=== PATIENT | male | born 1965 | race Two or more races ===

== ENCOUNTER 2017-06-05 08:01 | Emergency (ER) | payer MEDICAID ==
[~2017-06-05] VITALS: Ht 165.1 cm; Wt 83.9 kg
[~2017-06-05 08:01] MED LIST: ENA2.5T GT; GABA-494 PO; GLIP-115 PO; METF-370 PO
[2017-06-05 08:39] VITALS: BP 143/90
[2017-06-05] MEDS ORDERED: SODIUM CHLORIDE 0.9% 1,000 ML IV ONE (08:54)
[2017-06-05 09:39] LABS: CONDITION Y; Hemoglobin 13.9 g/dL (13.5-17.5); Red Cell Distribution Width 14.6 % (11.6-16.0); SUSPECT SEE PRINTOUT
[2017-06-05 09:45] LABS: Hematocrit 40.2 % (41.0-53.0); Mean Corpuscular Hemoglobin 30.3 pg (28.0-32.0); Mean Corpuscular Hgb Conc. 34.7 g/dL (32.0-36.0); Mean Corpuscular Volume 87.4 fL (80.0-100.0)
[2017-06-05 09:47] LABS: Metamyelocytes % 0; Myelocytes % 0; Promyelocytes % 0; Reactive Lymphocytes 0
[2017-06-05 09:52] LABS: Magnesium 2.2 mg/dL (1.6-2.6)
[2017-06-05 10:17] LABS: Albumin 3.3 g/dL (3.4-5.0); Alkaline Phosphatase 154 U/L (45-117); Anion Gap 10 (5-15); Aspartate Aminotransferase 20 U/L (15-37); BUN/Creatinine Ratio 17.1; Bilirubin, Total 0.3 mg/dL (0.2-1.0); Blood Urea Nitrogen 13 mg/dL (7-18); Calcium 8.9 mg/dL (8.5-10.1); Carbon Dioxide 19 mmol/L (21-32); Chloride 106 mmol/L (98-107); GFR African American 140 mL/min; GFR Non-African American 115 mL/min; Glucose 160 mg/dL (74-106); Potassium 4.2 mmol/L (3.5-5.1); Sodium 135 mmol/L (136-145); Total Protein 8.8 g/dL (6.4-8.2)
[2017-06-05 10:39] LABS: Mean Platelet Volume 7.5 fL (7.4-10.4); Platelet Count (auto) 376 10^3/uL (140-450)
[2017-06-05 10:40] LABS: Large Platelets FEW; Platelet Estimate Adequate
== END 2017-06-05 10:28 | disposition left against medical advice (07) ==
LOC: ER 08:01
DX: I25.10 Atherosclerotic heart disease of native coronary artery without angina pectoris (principal); E11.65 Type 2 diabetes mellitus with hyperglycemia; I10 Essential (primary) hypertension
CPT/HCPCS: 36415; 71020; 80053; 83690; 83735; 84443; 84484; 85007; 85027; 93005; 94761

== ENCOUNTER 2019-02-13 09:03 | Emergency (ER) | payer OTHER, MEDICAID ==
[~2019-02-13] VITALS: Ht 165.1 cm; Wt 95.3 kg
[~2019-02-13 09:03] MED LIST changes: -GABA-494 PO; +GABA100C9 PO
[2019-02-13 10:42] LABS: Basophils # (auto) 0 uL; Basophils % (auto) 0.2 % (0.0-2.0); Eosinophils # (auto) 0.1 uL; Eosinophils % (auto) 2.7 % (0.0-7.0); Hematocrit 40.5 % (41.0-53.0); Hemoglobin 13.4 g/dL (13.5-17.5); Lymphocytes # (auto) 1.4 uL; Lymphocytes % (auto) 26.3 % (10.0-50.0); Mean Corpuscular Hemoglobin 28.5 pg (28.0-32.0); Mean Corpuscular Hgb Conc. 33.2 g/dL (32.0-36.0); Mean Corpuscular Volume 85.9 fL (80.0-100.0); Monocytes # (auto) 0.3 uL; Monocytes % (auto) 4.8 % (0.0-12.0); Neutrophils # (auto) 3.5 uL; Nucleated Red Blood Cells % 0.1 %; Platelet Count (auto) 235 10^3/uL (140-450); Red Blood Cells 4.71 10^6/uL (4.5-5.90); Red Cell Distribution Width 14.9 % (11.8-14.3); White Blood Cell 5.3 10^3/uL (4.4-10.8)
[2019-02-13 11:01] LABS: Albumin 3.6 g/dL (3.4-5.0); Anion Gap 8 (5-15); Blood Urea Nitrogen 11 mg/dL (7-18); Carbon Dioxide 25 mmol/L (21-32); Chloride 103 mmol/L (98-107); Glucose 182 mg/dL (74-106); Potassium 3.5 mmol/L (3.5-5.1); Sodium 136 mmol/L (136-145)
[2019-02-13 11:09] LABS: Alanine Aminotransferase 25 U/L (16-61); Alkaline Phosphatase 103 U/L (45-117); Aspartate Aminotransferase 19 U/L (15-37); BUN/Creatinine Ratio 14.1; Bilirubin, Total 0.3 mg/dL (0.2-1.0); GFR African American 134 mL/min; GFR Non-African American 111 mL/min; Total Protein 7.8 g/dL (6.4-8.2)
[2019-02-13 11:28] LABS: Urine Bacteria NONE SEEN /hpf (None Seen); Urine Blood Negative /uL (Negative); Urine Mucus FEW (None Seen); Urine Specific Gravity 1.027 (1.001-1.035); Urine WBC 1 /hpf (0 - 3)
[2019-02-13 12:17] VITALS: BP 127/75
== END 2019-02-13 12:19 | disposition home or self-care (01) ==
LOC: ER 09:03
DX: R10.11 Right upper quadrant pain (principal); M79.18 Myalgia, other site; E11.9 Type 2 diabetes mellitus without complications; I10 Essential (primary) hypertension
CPT/HCPCS: 36415; 74176; 80053; 81001; 84484; 85025; 93005; A6257

== ENCOUNTER 2019-06-24 20:21 | Emergency (ER) | payer OTHER, MEDICAID ==
[~2019-06-24] VITALS: Ht 165.1 cm; Wt 95.3 kg
[~2019-06-24 20:21] MED LIST changes: -ENA2.5T GT; +ENAL2.5T2 GT; -GLIP-115 PO; +GLIP5TAB12 PO
[2019-06-24 20:34] VITALS: BP 118/57
== END 2019-06-25 00:01 | disposition left against medical advice (07) ==
LOC: ER 20:21 → EDBD 20:21 → ER 06-25 00:01
DX: R07.89 Other chest pain (principal); F41.9 Anxiety disorder, unspecified; Z53.21 Procedure and treatment not carried out due to patient leaving prior to being seen by health care provider
CPT/HCPCS: 93005

== ENCOUNTER 2019-11-09 15:41 | Emergency (ER) | payer OTHER, MEDICAID ==
[~2019-11-09] VITALS: Ht 165.1 cm; Wt 95.7 kg
[2019-11-09 16:39] VITALS: BP 144/71
[2019-11-09] MEDS ORDERED: KETOROLAC TROMETH 60MG/2ML VIAL IM ONE (17:30)
== END 2019-11-09 17:58 | disposition home or self-care (01) ==
LOC: ER 15:41
DX: M54.42 Lumbago with sciatica, left side (principal); E11.9 Type 2 diabetes mellitus without complications; I10 Essential (primary) hypertension
CPT/HCPCS: 73502; 82962; 96372; 99283; J1885

== ENCOUNTER 2019-11-12 12:42 | Emergency (ER) | payer OTHER, MEDICAID ==
[~2019-11-12] VITALS: Ht 165.1 cm; Wt 95.7 kg
[2019-11-12 14:00] VITALS: BP 136/69
[2019-11-12] MEDS ORDERED: METHOCARBAMOL 500 MG TAB PO ONE (15:00)
[2019-11-12] MEDS ORDERED: ACETAMINOPHEN 325 MG TAB PO ONE (15:00)
== END 2019-11-12 15:23 | disposition home or self-care (01) ==
LOC: ER 12:43
DX: M54.16 Radiculopathy, lumbar region (principal); I10 Essential (primary) hypertension; E11.9 Type 2 diabetes mellitus without complications

== ENCOUNTER 2021-06-13 09:04 | Emergency (ER) | payer OTHER, MEDICAID ==
[~2021-06-13] VITALS: Ht 165.1 cm; Wt 95.3 kg
[~2021-06-13 09:04] MED LIST changes: +ENAL2.5T11 GT; -ENAL2.5T2 GT
[2021-06-13 09:33] VITALS: BP 136/63
== END 2021-06-13 10:36 | disposition home or self-care (01) ==
LOC: ER 09:04
DX: S90.32XA Contusion of left foot, initial encounter (principal); S92.341D Displaced fracture of fourth metatarsal bone, right foot, subsequent encounter for fracture with routine healing; I10 Essential (primary) hypertension; E11.9 Type 2 diabetes mellitus without complications; Z90.49 Acquired absence of other specified parts of digestive tract; Z79.899 Other long term (current) drug therapy; Z79.84 Long term (current) use of oral hypoglycemic drugs; X58.XXXA Exposure to other specified factors, initial encounter; Y93.89 Activity, other specified; Y92.89 Other specified places as the place of occurrence of the external cause; Y99.8 Other external cause status
CPT/HCPCS: 73620

== ENCOUNTER 2021-08-17 17:04 | Emergency (ER) | payer OTHER, MEDICAID ==
[~2021-08-17] VITALS: Ht 165.1 cm; Wt 93.0 kg
[2021-08-17 20:05] VITALS: BP 126/70
== END 2021-08-17 20:40 | disposition home or self-care (01) ==
LOC: ER 17:04
DX: S92.334A Nondisplaced fracture of third metatarsal bone, right foot, initial encounter for closed fracture (principal); M79.671 Pain in right foot; E66.9 Obesity, unspecified; E11.9 Type 2 diabetes mellitus without complications; I10 Essential (primary) hypertension; Z68.34 Body mass index [BMI] 34.0-34.9, adult; Z79.899 Other long term (current) drug therapy; Z90.49 Acquired absence of other specified parts of digestive tract; X58.XXXA Exposure to other specified factors, initial encounter; Y93.89 Activity, other specified; Y92.89 Other specified places as the place of occurrence of the external cause; Y99.8 Other external cause status
CPT/HCPCS: 73630

== ENCOUNTER → 2022-06-18 | Emergency (ER) | payer OTHER, MEDICAID ==
[~2022-06-18] VITALS: Ht 165.1 cm; Wt 84.0 kg
[~2022-06-18] MED LIST changes: +MORPHINE SULFATE 4 MG/ML SYR/VIAL IV ONE; +ONDA-144 PO; +ONDANSETRON HCL 4 MG/2 ML VIAL IV ONE; +PANT40TA2 PO; +PANTOPRAZOLE 40 MG/10 ML VIAL INJ IV ONE; +SODIUM CHLORIDE 0.9% 500 ML IVB ONE
[2022-06-18 11:00] VITALS: BP 151/78
[2022-06-18 12:07] LABS: Basophils # (auto) 0 10 ^3/uL (0-0.2); Basophils % (auto) 0.2 % (0.0-2.0); Eosinophils # (auto) 0 10 ^3/uL (0-0.8); Hematocrit 41.2 % (41.0-53.0); Hemoglobin 13.3 g/dL (13.5-17.5); Lymphocytes # (auto) 0.6 10 ^3/uL (0.4-5.4); Lymphocytes % (auto) 5.3 % (10.0-50.0); Mean Corpuscular Hemoglobin 28.1 pg (28.0-32.0); Mean Corpuscular Hgb Conc. 32.3 g/dL (32.0-36.0); Monocytes # (auto) 0.3 10 ^3/uL (0-1.3); Neutrophils # (auto) 9.6 10 ^3/uL (1.6-8.6); Neutrophils % (auto) 91.5 % (37.0-80.0); Red Blood Cells 4.74 10^6/uL (4.5-5.90); White Blood Cell 10.5 10^3/uL (4.4-10.8)
[2022-06-18 12:20] LABS: Albumin 3.8 g/dL (3.4-5.0); Calcium 9.8 mg/dL (8.5-10.1); Potassium 4.4 mmol/L (3.5-5.1)
[2022-06-18 12:24] LABS: BUN/Creatinine Ratio 14.5; Bilirubin, Total 0.6 mg/dL (0.2-1.0); Total Protein 7.8 g/dL (6.4-8.2)
== END | disposition left against medical advice (07) ==
LOC: ER 10:44
DX: R10.84 Generalized abdominal pain (principal); E11.9 Type 2 diabetes mellitus without complications; I10 Essential (primary) hypertension; Z90.49 Acquired absence of other specified parts of digestive tract
CPT/HCPCS: 36415; 74176; 80053; 82150; 83690; 85025; 93005

== ENCOUNTER 2023-03-13 09:39 | Emergency (ER) | payer OTHER, MEDICAID ==
[~2023-03-13] VITALS: Ht 165.1 cm; Wt 83.7 kg
[~2023-03-13 09:39] MED LIST changes: -MORPHINE SULFATE 4 MG/ML SYR/VIAL IV ONE; -ONDANSETRON HCL 4 MG/2 ML VIAL IV ONE; -PANTOPRAZOLE 40 MG/10 ML VIAL INJ IV ONE; -SODIUM CHLORIDE 0.9% 500 ML IVB ONE
[2023-03-13 10:24] LABS: Basophils # (auto) 0 10 ^3/uL (0-0.2); Basophils % (auto) 0.3 % (0.0-2.0); Eosinophils # (auto) 0 10 ^3/uL (0-0.8); Eosinophils % (auto) 0.3 % (0.0-7.0); Hematocrit 38.9 % (41.0-53.0); Lymphocytes # (auto) 0.9 10 ^3/uL (0.4-5.4); Lymphocytes % (auto) 15.5 % (10.0-50.0); Mean Corpuscular Hemoglobin 28.8 pg (28.0-32.0); Mean Corpuscular Hgb Conc. 33.3 g/dL (32.0-36.0); Mean Corpuscular Volume 86.4 fL (80.0-100.0); Monocytes # (auto) 0.4 10 ^3/uL (0-1.3); Monocytes % (auto) 6.1 % (0.0-12.0); Neutrophils # (auto) 4.7 10 ^3/uL (1.6-8.6); Neutrophils % (auto) 77.8 % (37.0-80.0); Nucleated Red Blood Cells % 0.3 %; Red Blood Cells 4.51 10^6/uL (4.5-5.90); Red Cell Distribution Width 14.6 % (11.8-14.3); White Blood Cell 6.1 10^3/uL (4.4-10.8)
[2023-03-13 10:40] LABS: Albumin 3.7 g/dL (3.4-5.0); Potassium 3.6 mmol/L (3.5-5.1)
[2023-03-13 10:43] LABS: BUN/Creatinine Ratio 18.5 (10.0-20.0); Bilirubin, Total 0.6 mg/dL (0.2-1.0); Total Protein 7.3 g/dL (6.4-8.2)
[2023-03-13 11:45] VITALS: BP 132/46
[2023-03-13] MEDS ORDERED: HYDROcodone-ACET 10/325MG TAB PO ONE (11:45)
[2023-03-13 12:46] LABS: Urine Bacteria NONE SEEN /hpf (None Seen); Urine Blood Negative /uL (Negative); Urine Mucus FEW (None Seen); Urine Specific Gravity 1.034 (1.001-1.035); Urine WBC <1 /hpf (0 - 3)
== END 2023-03-13 11:52 | disposition home or self-care (01) ==
LOC: ER 09:39
DX: R07.81 Pleurodynia (principal); R06.02 Shortness of breath; E11.9 Type 2 diabetes mellitus without complications; I10 Essential (primary) hypertension; Z90.49 Acquired absence of other specified parts of digestive tract; Z93.3 Colostomy status; W11.XXXA Fall on and from ladder, initial encounter; Y93.89 Activity, other specified; Y92.89 Other specified places as the place of occurrence of the external cause; Y99.8 Other external cause status
CPT/HCPCS: 36415; 70450; 71250; 72125; 74176; 80053; 81001; 82962; 85025

== ENCOUNTER 2023-05-02 10:04 | Emergency (ER) | payer OTHER, MEDICAID ==
[~2023-05-02] VITALS: Ht 165.1 cm; Wt 85.0 kg
[~2023-05-02 10:04] MED LIST changes: +GABA-1308 PO; -GABA100C9 PO
[2023-05-02 10:07] VITALS: BP 137/67
[2023-05-02 10:37] LABS: Basophils # (auto) 0 10 ^3/uL (0-0.2); Basophils % (auto) 0.8 % (0.0-2.0); Eosinophils # (auto) 0 10 ^3/uL (0-0.8); Eosinophils % (auto) 0.2 % (0.0-7.0); Hematocrit 41.4 % (41.0-53.0); Hemoglobin 13.6 g/dL (13.5-17.5); Lymphocytes # (auto) 0.6 10 ^3/uL (0.4-5.4); Lymphocytes % (auto) 10.5 % (10.0-50.0); Mean Corpuscular Hemoglobin 28.8 pg (28.0-32.0); Mean Corpuscular Volume 87.4 fL (80.0-100.0); Monocytes # (auto) 0.2 10 ^3/uL (0-1.3); Monocytes % (auto) 3.5 % (0.0-12.0); Neutrophils # (auto) 4.8 10 ^3/uL (1.6-8.6); Nucleated Red Blood Cells % 0.2 %; Red Blood Cells 4.73 10^6/uL (4.5-5.90); Red Cell Distribution Width 14.9 % (11.8-14.3); White Blood Cell 5.7 10^3/uL (4.4-10.8)
[2023-05-02 10:49] LABS: Potassium 4.3 mmol/L (3.5-5.1)
[2023-05-02 10:53] LABS: INR 0.98 (0.9-1.15); Partial Thromboplastin Time 30.5 SEC (24.5-34.5)
[2023-05-02 10:57] LABS: Albumin 3.9 g/dL (3.4-5.0); BUN/Creatinine Ratio 16.1 (10.0-20.0); Bilirubin, Total 0.6 mg/dL (0.2-1.0); Calcium 9.3 mg/dL (8.5-10.1); Magnesium 2.4 mg/dL (1.6-2.6); Total Protein 7.3 g/dL (6.4-8.2)
[2023-05-02 10:58] LABS: Urine Bacteria FEW /hpf (None Seen); Urine Blood Negative /uL (Negative); Urine Mucus FEW (None Seen); Urine Specific Gravity 1.039 (1.001-1.035); Urine WBC <1 /hpf (0 - 3)
[2023-05-02 11:30] LABS: Alcohol, Urine < 3.0 mg/dL (0-10); Amphetamine Screen, Urine NEGATIVE (NEGATIVE); Barbiturate Scree,Urine NEGATIVE (NEGATIVE); Benzodiazephine Screen, Urine NEGATIVE (NEGATIVE); Cannabinoid Screen, Urine NEGATIVE (NEGATIVE); Cocaine Screen, Urine NEGATIVE (NEGATIVE); Opiate Scree,Urine NEGATIVE (NEGATIVE); Phencyclidine Screen, Urine NEGATIVE (NEGATIVE)
== END 2023-05-02 13:53 | disposition left against medical advice (07) ==
LOC: ER 10:04
DX: R07.89 Other chest pain (principal); R06.02 Shortness of breath; Z53.21 Procedure and treatment not carried out due to patient leaving prior to being seen by health care provider; Z79.01 Long term (current) use of anticoagulants; Z79.899 Other long term (current) drug therapy
CPT/HCPCS: 36415; 71045; 80053; 80307; 81001; 83735; 83880; 84484; 85025; 85610; 85730; 93005

== ENCOUNTER 2024-11-23 23:08 | Inpatient (IN) | payer OTHER, MEDICAID ==
[~2024-11-23] VITALS: Ht 165.1 cm; Wt 81.4 kg
[~2024-11-23 23:08] MED LIST changes: +ENAL1TAB43 GT; -ENAL2.5T11 GT; -GLIP5TAB12 PO; +GLIP5TAB21 PO
--- NOTE | 2024-11-23 23:38 | ED.PDOC ---
GI ASSESSMENT HPI Comments 59-year-old male came to emergency room for abdominal pain. Patient the past 10 days has been having diffuse abdominal pain associated with loss of appetite, with nausea and vomiting. Noted also abdominal distention. He does have history of hypertension, diabetes, colon cancer on remission, status post ostomy bag. Complaining also of polydipsia and polyuria. Persistence of abdominal pain, distention, with generalized weakness and pale appearance prompted check up. Chief Complaint: Abdominal Pain Time Seen by MD: 23:38 Primary Care Provider: LOYDA Reviewed Notes: Nurses Notes Allergies: Coded Allergies: NO KNOWN ALLERGIES (Unverified , 01/04/14) Home Meds Active Scripts Pantoprazole Sodium Sesquihydr (Protonix) 40 Mg Tab, 40 MG PO DAILY, #30 TAB Prov:JOSE MERIDA MD 06/18/22 Ondansetron (Zofran) 4 Mg Tab, 1 TAB PO Q6HR, #20 TAB Prov:JOSE MERIDA MD 06/18/22 Reported Medications Gabapentin (Gabapentin) 100 Mg Cap, 100 MG PO, CAP 01/04/14 Glipizide (Glipizide) 5 Mg Tab, 5 MG PO, TAB 01/04/14 Metformin Hydrochloride (Metformin Hcl) 500 Mg Tab, 500 MG PO, TAB 01/04/14 Enalapril Maleate (VASOTEC TABLET) 2.5 Mg Tb, 2.5 MG GT 01/04/14 Information Source: Patient Mode of Arrival: Ambulatory Timing: Days Duration: Since onset Prehospital treatment: None Quality: Aching Vomitus: Watery Stool: Normal Severity: Moderate Recent: None Recent Hx of: Abdominal Surgery, Other (Colon cancer) Pain Location: Diffuse Associated sign and symptoms: Nausea, Vomiting, Abdominal Pain, Anorexia Past Medical History PAST MEDICAL HISTORY: Cancer, DM, HTN Surgical History: Cholecystectomy Surgical History (Other): Ostomy Family History Family History: Reviewed,noncontributory to illness Social History Smoker: Non-Smoker Alcohol: Denies ETOH Use Drugs: Denies Drug Use Lives In: Home Constitutional: reports: fatigue, weakness; denies: chills, diaphoresis, fever, malaise, sweats, others EENTM: denies: blurred vision, double vision, ear bleeding, ear discharge, ear drainage, ear pain, ear ringing, eye pain, eye redness, hearing loss, mouth pain, mouth swelling, nasal discharge, nose bleeding, nose congestion, nose pain, photophobia, tearing, throat pain, throat swelling, voice changes, others Respiratory: denies: cough, hemoptysis, orthopnea, SOB at rest, shortness of breath, SOB with excertion, stridor, wheezing, others Cardiovascular: denies: chest pain, dizzy spells, diaphoresis, Dyspnea on exertion, edema, irregular heart beat, left arm pain, lightheadedness, palpitations, PND, syncope, others Gastrointestinal: reports: abdomen distended, abdominal pain, nausea, poor appetite, vomiting; denies: blood streaked bowels, constipated, diarrhea, dysphagia, difficulty swallowing, hematemesis, melena, poor fluid intake, rectal bleeding, rectal pain, others Genitourinary: denies: burning, dysuria, flank pain, frequency, hematuria, incontinence, penile discharge, penile sore, pain, testicle pain, testicle swelling, urgency, others Neurological: denies: dizziness, fainting, headache, left sided numbness, left sided weakness, numbness, paresthesia, pre-existing deficit, right sided numbness, right sided weakness, seizure, speech problems, tingling, tremors, weakness, others Musculoskeletal: denies: back pain, gout, joint pain, joint swelling, muscle pain, muscle stiffness, neck pain, others Integumetry: denies: bruises, change in color, change in hair/nails, dryness, laceration, lesions, lumps, rash, wounds, others Allergic/Immunocompromised: denies: Difficulty Healing, Frequent Infections, Hives, Itching, others Hematologic/Lymphatic: denies: anemia, blood clots, easy bleeding, easy bruising, swollen glands, others Endocrine: denies: excessive hunger, excessive sweating, excessive thirst, excessive urination, flushing, intolerance to cold, intolerance to heat, unexplained weight gain, unexplained weight loss, others Psychiatric: denies: anxiety, bipolar disorder, depression, hopeless, panic disorder, schizophrenia, sleepless, suicidal, others Physical Exam General Appearance: No Apparent Distress, Normal HEENT: Normal ENT Inspection, Pharynx Normal, TMs Normal Neck: Full Range of Motion, Non-Tender, Normal, Normal Inspection Respiratory: Chest Non-Tender, Lungs Clear, No Accessory Muscle Use, No Respiratory Distress, Normal Breath Sounds Cardiovascular: No Edema, No JVD, No Murmur, No Gallop, Normal Peripheral Pulses, Regular Rate/Rhythm Breast Exam: Deferred Gastrointestinal: Diffuse, No Organomegaly, No Pulsatile Mass, Normal Bowel Sounds, Soft, Tenderness, Other (Ostomy bag), NOT DONE Genitalia: Deferred Pelvic: Deferred Rectal: Deferred Extremities: No calf tenderness, Normal capillary refill, Normal inspection, Normal range of motion, Non-tender, No pedal edema Musculoskeletal : Apperance: Normal Neurologic: Alert, mis director II-XII nml as Tested, No Motor Deficits, Normal Affect, Normal Mood, No Sensory Deficits Cerebellar Function: Normal Reflexes: Normal Skin: Dry, Normal Color, Warm Lymphatic: No Adenopathy Was a procedure done? Was a procedure done?: No GI differential Dx Differential Diagnosis: Bowel Obstruction, Constipation, Diverticular disease, Gastritis/PUD, Gastroenteritis, Hernia, Inflammatory BD, Ischemic Bowel, Pancreatitis, UTI, Urolithiasis, Electrolyte Imbalance, Mass, Anemia, Stress Ulcer X-Ray, Labs, Meds, VS Vital Signs Date Time Temp Pulse Resp B/P (MAP) Pulse Ox O2 Delivery O2 Flow Rate FiO2 11/24/24 01:56 97 20 97 Room Air 11/24/24 01:45 98.2 97 16 120/72 (88) 97 98.2 11/23/24 23:28 99.1 111 16 128/71 (90) 95 Lab Test 11/24/24 01:51 11/23/24 23:40 Range/Units POC Glucose 534 *H 70-106 mg/dl White Blood Count 11.3 H 4.4-10.8 10^3/uL Red Blood Count 4.16 L 4.5-5.90 10^6/uL Hemoglobin 12.0 L 13.5-17.5 g/dL Hematocrit 35.5 L 41.0-53.0 % Mean Corpuscular Volume 85.3 80.0-100.0 fL Mean Corpuscular Hemoglobin 28.9 28.0-32.0 pg Mean Corpuscular Hemoglobin Concent 33.8 32.0-36.0 g/dL Red Cell Distribution Width 13.8 11.8-14.3 % Platelet Count 358 140-450 10^3/uL Mean Platelet Volume 7.2 6.9-10.8 fL Neutrophils (%) (Auto) 91.2 H 37.0-80.0 % Lymphocytes (%) (Auto) 4.1 L 10.0-50.0 % Monocytes (%) (Auto) 4.4 0.0-12.0 % Eosinophils (%) (Auto) 0.1 0.0-7.0 % Basophils (%) (Auto) 0.2 0.0-2.0 % Neutrophils # (Auto) 10.3 H 1.6-8.6 10 ^3/uL Lymphocytes # (Auto) 0.5 0.4-5.4 10 ^3/uL Monocytes # (Auto) 0.5 0-1.3 10 ^3/uL Eosinophils # (Auto) 0 0-0.8 10 ^3/uL Basophils # (Auto) 0 0-0.2 10 ^3/uL Nucleated Red Blood Cells 0.0 % Sodium Level 127 L 136-145 mmol/L Potassium Level 3.1 L 3.5-5.1 mmol/L Chloride Level 96 L 98-107 mmol/L Carbon Dioxide Level 19 L 20-31 mmol/L Anion Gap 12 5-15 Blood Urea Nitrogen 11 9-23 mg/dL Creatinine 1.17 0.700-1.30 mg/dL Glomerular Filtration Rate Calc 72 >90 mL/min BUN/Creatinine Ratio 9.4 L 10.0-20.0 Serum Glucose 644 *H 74-106 mg/dL Calcium Level 9.7 8.7-10.4 mg/dL Total Bilirubin 0.6 0.2-1.0 mg/dL Aspartate Amino Transferase (AST) 12 L 13-40 U/L Alanine Aminotransferase (ALT) 12 7-40 U/L Alkaline Phosphatase 140 H 46-116 U/L Total Protein 7.1 5.7-8.2 g/dL Albumin 4.1 3.2-4.8 g/dL Lipase 32 12-53 U/L Current Medications Medications (Trade) Dose Ordered Sig/Angle Route Start Time Stop Time Status Last Admin Insulin Human Regular (InsuLIN R) 10 units ONCE ONCE IV 11/24/24 01:15 11/24/24 01:17 DC 11/24/24 01:58 Time of 1ST Reevaluation: 23:28 Reevaluation 1ST: Unchanged Patient Education/Counseling: Diagnosis, Treatment Family Education/Counseling: No Family Present Departure 1 Departure Time of Disposition: 03:31 (Patient presented with abdominal pain that was concerning for possible appendicits, gastritis, cholecystitis, colitis, gastroenteritis, sbo, or orther possible surgical emergency. Data: 1. I ordered and reviewed the result of at least 3 labs including a CBC, BMP, and Urinalysis. 2. I independently interpreted the following tests: CT Abdoment and Pelvis is concerning for perforated bowel .Risk:This patient has a high risk of morbidity due to further diagnostic testing or treatment and may suffer from an acute abdominal process disorder. Workup reveals concern for bowel perforation, i discussed with dr loredo, and patient should be admitted for further workup. and possible expert consultation. Patient is not septic at this time.) Impression: Primary Impression: Intractable abdominal pain Additional Impressions: Free intraperitoneal air Uncontrolled diabetes mellitus Qualified Codes: E11.65 - Type 2 diabetes mellitus with hyperglycemia Disposition: ADMITTED INPATIENT Admit to: [facility] Condition: Guarded Critical Care Note Critical Care Time?: Yes Critical care comment: Severe Abdominal Pain Authorized and Performed by: Sapphire Hughes MD Total critical care time: Approximately 48 minutes Due to a high probability of clinically significant, life threatening deterio ration, the patient required my highest level of preparedness to intervene emergently and I personally spent this critical care time directly and personally managing the patient. This critical care time included obtaining a history; examining the patient; pulse oximetry; ordering and review of studies; arranging urgent treatment with development of a management plan; evaluation of patient's response to treatment; frequent reassessment; and, discussions with other providers. This critical care time was performed to assess and manage the high probability of imminent, life-threatening deterioration that could result in multi-organ failure. It was exclusive of separately billable procedures and treating other patients and teaching time. Please see my other sections and the rest of the note for further information on patient assessment and treatment. Stability Stability form required: No Heart Score Heart Score: Heart Score Response (Comments) Value History N/A 0 EKG N/A 0 Age N/A 0 Risk Factors N/A 0 Troponin N/A 0 Total 0 I personally scribed for SAPPHIRE HUGHES MD ([email or web address]) on 11/23/24 at 23:38. Electronically submitted by Dexter Allen ([facility]). I personally scribed for SAPPHIRE HUGHES MD ([email or web address]) on 11/24/24 at 00:54. Electronically submitted by Dexter Allen ([facility]). SAPPHIRE HUGHES MD Nov 23, 2024 23:38
[2024-11-24] MEDS: IOHEXOL 300 MG/ML 100ML BOTTLE IJ ONE (00:04)
[2024-11-24 00:07] LABS: Basophils # (auto) 0 10 ^3/uL (0-0.2); Basophils % (auto) 0.2 % (0.0-2.0); Eosinophils # (auto) 0 10 ^3/uL (0-0.8); Eosinophils % (auto) 0.1 % (0.0-7.0); Hematocrit 35.5 % (41.0-53.0); Lymphocytes # (auto) 0.5 10 ^3/uL (0.4-5.4); Lymphocytes % (auto) 4.1 % (10.0-50.0); Mean Corpuscular Hemoglobin 28.9 pg (28.0-32.0); Mean Corpuscular Hgb Conc. 33.8 g/dL (32.0-36.0); Mean Corpuscular Volume 85.3 fL (80.0-100.0); Monocytes # (auto) 0.5 10 ^3/uL (0-1.3); Monocytes % (auto) 4.4 % (0.0-12.0); Neutrophils # (auto) 10.3 10 ^3/uL (1.6-8.6); Neutrophils % (auto) 91.2 % (37.0-80.0); Platelet Count (auto) 358 10^3/uL (140-450); Red Blood Cells 4.16 10^6/uL (4.5-5.90); Red Cell Distribution Width 13.8 % (11.8-14.3); White Blood Cell 11.3 10^3/uL (4.4-10.8)
[2024-11-24 00:47] LABS: Alanine Aminotransferase 12 U/L (7-40); Albumin 4.1 g/dL (3.2-4.8); Anion Gap 12 (5-15); BUN/Creatinine Ratio 9.4 (10.0-20.0); Blood Urea Nitrogen 11 mg/dL (9-23); Calcium 9.7 mg/dL (8.7-10.4); Lipase 32 U/L (12-53)
[2024-11-24 00:48] LABS: Bilirubin, Total 0.6 mg/dL (0.2-1.0); Total Protein 7.1 g/dL (5.7-8.2)
[2024-11-24 00:49] LABS: Carbon Dioxide 19 mmol/L (20-31); Chloride 96 mmol/L (98-107); Potassium 3.1 mmol/L (3.5-5.1); Sodium 127 mmol/L (136-145)
[2024-11-24 00:50] LABS: Alkaline Phosphatase 140 U/L (46-116); Aspartate Aminotransferase 12 U/L (13-40)
[2024-11-24 00:51] LABS: Glucose 644 mg/dL (74-106)
--- NOTE | 2024-11-24 01:11 | DVH ---
EXAM: XY CHEST PORTABLE CLINICAL HISTORY: abdominal pain, ca hx, ostomy TECHNIQUE: Single AP view of the chest WID: COMPARISON: XY CHEST PORTABLE on DOS: 05/02/23 FINDINGS: Lines and tubes: Right IJ chest port with the tip projecting over the mid SVC. Chest: The heart size and pulmonary vasculature is within normal limits. No pleural effusion, pneumothorax, or consolidation. Linear scarring or atelectasis in the medial rig ht lung base. The osseous structures are grossly intact. IMPRESSION: No acute cardiopulmonary abnormality.
[2024-11-24] MEDS: InsuLIN REG 1unit/0.01ml Soln (100units/ml) IV ONE ×2 (01:58→04:18)
--- NOTE | 2024-11-24 03:23 | DVH ---
Critical Finding: Examination: ABPLIV CLINICAL INDICATION: ;abdominal pain, ca hx, ostomy COMPARISON: None. CONTRAST USED: Intravenous. TECHNIQUE: A contrast CT study of the abdomen and pelvis is performed. The examination was performe d with 5 mm thin slices. Multiplanar reconstructions were obtained. CT scan done according to ALARA (As Low As Reasonably Achievable). FINDINGS: Lung base: Solid nodule measuring 9.5 mm is seen in the left lower lobe. Small sliding hiatus hernia. Subsegmental atelectasis is seen in the lingula. Liver: The liver is normal in size. An enhancing lesion measuring 10 mm is seen in the right lobe o f liver suggestive of hemangioma or metastasis. Subcentimeter non-enhancing cyst is seen in segment of liver. It is likely benign and requires no follow-up. The portal venous radicles are normal. There is no intrahepatic biliary radicle dilatation. Gallbladder: The gallbladder is not visualized (postoperative status). The common bile duct is not dilated. Pancreas: The pancreas is normal in size and shape. No focal lesion is seen within. The peripancre atic fa -planes are normal. Spleen: The spleen is normal in size and does not show any focal abnormality. Retroperitoneum: Both adrenal glands are normal in size and morphology. There is no significant retroperitoneal lymphadenopathy. The kidneys are normal in size with no hydronephrosis or renal calculi. Vessels: Aorta, IVC and the mesenteric vessels appear normal. Stomach and bowel: The bowel loops are unremarkable. There is no ascites. Skeletal system: Degenerative changes are seen involving the spine. Grade 1 anterolisthesis of L5 on S1 vertebra is seen with bilateral lysis. CT PELVIS: Appendix: The appendix is unremarkable in appearance. Colon: Colostomy is noted in the left lower quadrant with dilated bowel loops seen in the colostomy measuring approximately 6.3 cm. It appears to be loaded with feces. Mild fat stranding is noted in the adjacent subcutaneous fat with extraluminal air foci questionable for perforation. Bladder: The urinary bladder is unremarkable. Prostate appears normal. No abnormal fluid collection is seen. No pelvic lymphadenopathy is identified. IMPRESSION: 1. Solid nodule measuring 9.5 mm is seen in the left lower lobe. Suggest further evaluation with CT chest study or PET CT study. 2. An enhancing lesion measuring 10 mm is seen in the right lobe of liver suggestive of hemangioma o r metastasis. 3. Colostomy is noted in the left lower quadrant with dilated bowel loops seen in the colostomy miguel a uring approximately 6.3 cm. It appears to be loaded with feces. Mild fat stranding is noted in the adjacent subcutaneous fat with extraluminal air foci questionable for perforation. 4. No abdominal mass or adenopathy. 5. No ascites. 6. No free air or inflammatory changes. 7. Additional chronic and/or ancillary findings as detailed above. 8. Suggest clinical correlation and follow-up as clinically deemed necessary. Electronically Signed 11/24/2024 03:23 Jude Bonilla
[2024-11-24 03:30] VITALS: PULSE 100; RESP 18; O2SAT 96
[2024-11-24] MEDS ORDERED: DEXTROSE (50%) 50ML SYRG IV PRN (04:15)
[2024-11-24] MEDS ORDERED: ACETAMINOPHEN 325 MG TAB PO PRN (04:15)
[2024-11-24] MEDS: ceFAZolin 2 GM/D5W50ml 50 ML IV ONE (04:17)
[2024-11-24] MEDS: ONDANSETRON HCL 4 MG/2 ML VIAL IV ONE (04:17)
[2024-11-24] MEDS: SODIUM CHLORIDE 0.9% 1,000 ML IV ONE ×2 (04:18→14:08)
[2024-11-24] MEDS: MORPHINE SULFATE 4 MG/ML SYR/VIAL IV ONE (04:19)
[2024-11-24] MEDS ORDERED: NITROGLYCERIN 0.4 MG SL TAB SL PRN (04:30)
[2024-11-24] MEDS ORDERED: MORPHINE SULFATE INJ 2 MG/ml SYRG IV PRN (04:30)
--- NOTE | 2024-11-24 04:36 | DVHHP2 ---
History of Present Illness Reason for Visit: Acute abdominal pain History of Present Illness The patient is a 51 old male with past medical history of colon cancer on remission, diabetes mellitus, hypertension who presented to [facility] ED with complaint of acute abdominal pain. Patient reports he has been having diffuse abdominal pain for the past 10 days, associated with loss of appetite, nausea, vomiting, getting worse that prompted this visit. Patient was seen evaluated in the ED, laboratory data shows WBC 11.3, platelets 358, sodium 127, potassium 3.1, BUN 11, creatinine 1.17, GFR 72, glucose 644, lipase 32. Abdomen/pelvis CT revealing solid nodules measuring 9.5 mm is seen in the left lower lobe, and enhancing lesion measuring 10 mm seen in the right lobe of liver suggestive of hemangioma or materials; colostomy is noted in the left lower quadrant with dilated bowel loops seen in the colostomy measuring a proximally 6.3 cm, appears to be loaded with feces; mild fat stranding is noted in the adjacent subcutaneous fat with extraluminal air foci questionable for perforation. Patient started IV antibiotic regimen Flagyl, please see medication orders section in the computer. On my assessment, at bedside, patient denies chest pain, no headache, no dizziness, no diaphoresis, no shortness of breath, no nausea, no vomiting, no fever, no chills. Patient was admitted for further evaluation and medical management. Past Medical History Colon cancer DM, HTN Past Surgical History Cholecystectomy, Ostomy Family History Reviewed, noncontributory to the management of this case. Past Social History The patient lives at home, denies smoking, alcohol or illicit drugs abuse. Review of Systems Constitutional: Yes: Weakness; No: Fever, Chills, Sweats, Malaise, Other Eyes: No: Pain, Vision change, Conjunctivae inflammation, Eyelid inflammation, Other, Redness ENT: No: Ear pain, Ear discharge, Nose pain, Nose discharge, Nose congestion, Mouth pain, Mouth swelling, Throat pain, Throat swelling, Other Respiratory: No: Cough, Dry, Shortness of breath, SOB with excertion, Wheezing, Hemoptysis, Pleuritic Pain, Sputum, Wheezing, Other Cardiovascular: No: Chest Pain, Palpitations, Orthopnea, Paroxysmal Noc. Dyspnea, Edema, Lt Headedness, Other Gastrointestinal: Nausea, Vomiting, Abdominal Pain, Other (Colostomy); No: Diarrhea, Constipation, Melena, Hematochezia Genitourinary: No Dysuria, No Frequency, No Incontinence, No Hematuria, No Retention, No Other Musculoskeletal: No: other, neck pain, shoulder pain, arm pain, back pain, hand pain, leg pain, foot pain Skin: No: Rash, Lesions, Jaundice, Bruising, Other Neurological: No: Weakness, Numbness, Incoordination, Change in speech, C onfusion, Seizures, Other Allergies: Coded Allergies: NO KNOWN ALLERGIES (Unverified , 01/04/14) Medications Current Medications Medications Dose Ordered Sig/Angle Route Start Time Stop Time Status Last Admin Dose Admin Pantoprazole Sodium 40 mg DAILY IV 11/24/24 10:00 UNV Metronidazole 100 ml @ 100 mls/hr Q8HR IV 11/24/24 06:00 UNV Ceftriaxone Sodium 50 ml @ 100 mls/hr DAILY@09 IV 11/24/24 09:00 UNV Diagnostic Test (Pha) 1 strip Q6HR 11/24/24 06:00 UNV Insulin Human Regular Q6HR SC 11/24/24 06:00 UNV Dextrose 50 ml UD PRN IV 11/24/24 04:15 UNV Sodium Chloride 1,000 ml @ 70 mls/hr [id number] IV 11/24/24 04:15 UNV Acetaminophen/ Hydrocodone Bitart 1 tab Q4HP PRN PO 11/24/24 04:15 UNV Ondansetron HCl 4 mg Q4HP PRN IV 11/24/24 04:15 UNV Docusate Sodium 100 mg BIDPRN PRN PO 11/24/24 04:15 UNV Acetaminophen 650 mg Q6HP PRN PO 11/24/24 04:15 UNV Morphine Sulfate 2 mg Q4HPRN PRN IV 11/24/24 04:15 UNV Exam Vital Signs Vital Signs Date Time Temp Pulse Resp B/P (MAP) Pulse Ox O2 Delivery O2 Flow Rate FiO2 11/24/24 04:19 94 15 113/69 11/24/24 03:30 97.7 96 97.7 11/24/24 01:56 Room Air General Appearance: Alert, Oriented X3, Cooperative, No acute distress HEENT: Atraumatic, PERRLA, EOMI, Mucous membr. moist/pink Respiratory: Clear to auscultation, Normal air movement Cardiovascular: Regular rate, Normal S1, Normal S2, No murmurs Abdominal: Normal bowel sounds, Soft, No hepatospenomegaly, No masses, Other (Reports tenderness) Extremities: No clubbing, No cyanosis, No edema, Normal pulses, No tenderness/swelling Skin: No rashes, No breakdown, No significant lesion Neuro: Normal speech, Normal tone, Sensation intact, Cranial nerves 3-12 NL, Reflexes 2+, Other (Generalized weakness) Psych/Mental Status: Mental status NL, Mood NL Labs/Xrays Labs Test 11/24/24 04:06 11/24/24 03:40 11/23/24 23:40 Range/Units POC Glucose 421 *H 70-106 mg/dl White Blood Count 11.3 H 4.4-10.8 10^3/uL Red Blood Count 4.16 L 4.5-5.90 10^6/uL Hemoglobin 12.0 L 13.5-17.5 g/dL Hematocrit 35.5 L 41.0-53.0 % Mean Corpuscular Volume 85.3 80.0-100.0 fL Mean Corpuscular Hemoglobin 28.9 28.0-32.0 pg Mean Corpuscular Hemoglobin Concent 33.8 32.0-36.0 g/dL Red Cell Distribution Width 13.8 11.8-14.3 % Platelet Count 358 140-450 10^3/uL Mean Platelet Volume 7.2 6.9-10.8 fL Neutrophils (%) (Auto) 91.2 H 37.0-80.0 % Lymphocytes (%) (Auto) 4.1 L 10.0-50.0 % Monocytes (%) (Auto) 4.4 0.0-12.0 % Eosinophils (%) (Auto) 0.1 0.0-7.0 % Basophils (%) (Auto) 0.2 0.0-2.0 % Neutrophils # (Auto) 10.3 H 1.6-8.6 10 ^3/uL Lymphocytes # (Auto) 0.5 0.4-5.4 10 ^3/uL Monocytes # (Auto) 0.5 0-1.3 10 ^3/uL Eosinophils # (Auto) 0 0-0.8 10 ^3/uL Basophils # (Auto) 0 0-0.2 10 ^3/uL Nucleated Red Blood Cells 0.0 % Sodium Level 127 L 136-145 mmol/L Potassium Level 3.1 L 3.5-5.1 mmol/L Chloride Level 96 L 98-107 mmol/L Carbon Dioxide Level 19 L 20-31 mmol/L Anion Gap 12 5-15 Blood Urea Nitrogen 11 9-23 mg/dL Creatinine 1.17 0.700-1.30 mg/dL Glomerular Filtration Rate Calc 72 >90 mL/min BUN/Creatinine Ratio 9.4 L 10.0-20.0 Serum Glucose 644 *H 74-106 mg/dL Calcium Level 9.7 8.7-10.4 mg/dL Total Bilirubin 0.6 0.2-1.0 mg/dL Aspartate Amino Transferase (AST) 12 L 13-40 U/L Alanine Aminotransferase (ALT) 12 7-40 U/L Alkaline Phosphatase 140 H 46-116 U/L Total Protein 7.1 5.7-8.2 g/dL Albumin 4.1 3.2-4.8 g/dL Lipase 32 12-53 U/L PATIENT: KARLEE PALOMO ACCT: [id number] UNIT: [id number] : 1965 LOC: ER ROOM / BED: / AGE / SEX: 59 / M ADM STATUS: REG ER SERVICE [id number] ORDERING PHYSICIAN: SAPPHIRE HUGHES MD PROCEDURE(s): ABPLIV - CT AB PEL WITH IV CON ONLY REASON: abdominal pain, ca hx, ostomy ORDER NUMBER(s): [id number], ACCESSION NUMBER(s): [id number] Critical Finding: Examination: ABPLIV CLINICAL INDICATION: ;abdominal pain, ca hx, ostomy COMPARISON: None. CONTRAST USED: Intravenous. TECHNIQUE: A contrast CT study of the abdomen and pelvis is performed. The examination was performed with 5 mm thin slices. Multiplanar reconstructions were obtained. CT scan done according to ALARA (As Low As Reasonably Achie vable). FINDINGS: Lung base: Solid nodule measuring 9.5 mm is seen in the left lower lobe. Small sliding hiatus hernia. Subsegmental atelectasis is seen in the lingula. Liver: The liver is normal in size. An enhancing lesion measuring 10 mm is seen in the right lobe of liver suggestive of hemangioma or metastasis. Subcentimeter non-enhancing cyst is seen in segment of liver. It is likely benign and requires no follow-up. The portal venous radicles are normal. There is no intrahepatic biliary radicle dilatation. Gallbladder: The gallbladder is not visualized (postoperative status). The common bile duct is not dilated. Pancreas: The pancreas is normal in size and shape. No focal lesion is seen within. The peripancreatic fa -planes are normal. Spleen: The spleen is normal in size and does not show any focal abnormality. Retroperitoneum: Both adrenal glands are normal in size and morphology. There is no significant retroperitoneal lymphadenopathy. The kidneys are normal in size with no hydronephrosis or renal calculi. Vessels: Aorta, IVC and the mesenteric vessels appear normal. Stomach and bowel: The bowel loops are unremarkable. There is no ascites. Skeletal system: Degenerative changes are seen involving the spine. Grade 1 anterolisthesis of L5 on S1 vertebra is seen with bilateral lysis. CT PELVIS: Appendix: The appendix is unremarkable in appearance. Colon: Colostomy is noted in the left lower quadrant with dilated bowel loops seen in the colostomy measuring approximately 6.3 cm. It appears to be loaded with feces. Mild fat stranding is noted in the adjacent subcutaneous fat with extraluminal air foci questionable for perforation. Bladder: The urinary bladder is unremarkable. Prostate appears normal. No abnormal fluid collection is seen. No pelvic lymphadenopathy is identified. IMPRESSION: 1. Solid nodule measuring 9.5 mm is seen in the left lower lobe. Suggest further evaluation with CT chest study or PET CT study. 2. An enhancing lesion measuring 10 mm is seen in the right lobe of liver suggestive of hemangioma or metastasis. 3. Colostomy is noted in the left lower quadrant with dilated bowel loops seen in the colostomy measuring approximately 6.3 cm. It appears to be loaded with feces. Mild fat stranding is noted in the adjacent subcutaneous fat with e xtraluminal air foci questionable for perforation. 4. No abdominal mass or adenopathy. 5. No ascites. 6. No free air or inflammatory changes. 7. Additional chronic and/or ancillary findings as detailed above. 8. Suggest clinical correlation and follow-up as clinically deemed necessary. ORDERING PHYSICIAN: SAPPHIRE HUGHES MD PROCEDURE(s): CXRP - CHEST PORTABLE REASON: abdominal pain, ca hx, ostomy ORDER NUMBER(s): [id number], ACCESSION NUMBER(s): [id number] EXAM: XY CHEST PORTABLE CLINICAL HISTORY: abdominal pain, ca hx, ostomy TECHNIQUE: Single AP view of the chest WID: COMPARISON: XY CHEST PORTABLE on DOS: 05/02/23 FINDINGS: Lines and tubes: Right IJ chest port with the tip projecting over the mid SVC. Chest: The heart size and pulmonary vasculature is within normal limits. No pleural effusion, pneumothorax, or consolidation. Linear scarring or atelectasis in the medial right lung base. The osseous structures are grossly intact. IMPRESSION: No acute cardiopulmonary abnormality. Assessment/Plan Assessment/Plan Intractable abdominal pain Bowel perforation Free intraperitoneal air Leukocytosis, unspecified Electrolyte imbalance Uncontrolled diabetes mellitus Type 2 diabetes mellitus with hyperglycemia Plan 1. Admit to telemetry unit 2. Breathing treatment 3. Pain control management 4. IV antibiotic management 5. Management of fluids and electrolytes 6. Consultation for surgery 7. Diagnostic test abdomen/pelvis CT 8. DVT prophylaxis-on SCDs 9. Repeat labs CBC, CMP in a.m. 10. Home medication reviewed and reconciled 11. Continue with current medical management 12. Treatment plan discussed with patient and RN. Patient verbalized understanding. Plan discussed with: Patient, Other (RN) My Orders Orders - MARK ANTHONY ROA DNP Procedure Category Date Status Time Complete Blood Count LAB 11/24/24 Logged 04:15 Comprehensive LAB 11/24/24 Logged Metabolic Panel 04:15 Pantoprazole PHA 11/24/24 Logged (Protonix) 10:00 Metronidazole PHA 11/24/24 Logged 500mg/100ml (Flagyl 06:00 Ceftriaxone 1gm/50ml PHA 11/24/24 Logged D5w (Rocephin) 09:00 Glucose Blood PHA 11/24/24 Logged (Accu-Chek Comfort 06:00 Insulin R (Human) PHA 11/24/24 Logged (Insulin R) 06:00 Dextrose 50% Syringe PHA 11/24/24 Logged 04:15 Allergies SHANI 11/24/24 In Process 04:15 Code Status CODE 11/24/24 Transmitted 04:15 Sodium Chloride 0.9% PHA 11/24/24 Logged 04:15 Oxygen Per Hour RT 11/24/24 Transmitted 04:15 Hydrocodone-Acet PHA 11/24/24 Logged 5/325mg Tab (Ryan 04:15 Ondansetron Hcl PHA 11/24/24 Logged (Zofran) 04:15 Docusate Sodium PHA 11/24/24 Logged Capsule (Colace 04:15 Complete Blood Count LAB 11/25/24 Verified 04:00 Comprehensive LAB 11/25/24 Verified Metabolic Panel 04:00 Npo (Nothing By DIET 11/24/24 Transmitted Mouth) Diet Breakfast Condition: Serious SHANI 11/24/24 In Process 04:15 Acetaminophen Tablet PHA 11/24/24 Logged (Tylenol Tablet) 04:15 Bedrest With Bathroom SHANI 11/24/24 In Process Privileg 04:15 Morphine Sulfate [facility] 11/24/24 Logged Injection 04:[address] [facility] 11/24/24 In Process Compression Device Potassium Er Tablet PHA 11/24/24 Logged (Klor-Con Tablet) 04:30 Problem List: (1) Intractable abdominal pain (2) Leukocytosis, unspecified (3) Bowel perforation (4) Uncontrolled diabetes mellitus (5) Free intraperitoneal air (6) Electrolyte imbalance (7) Type 2 diabetes mellitus with hyperglycemia Date of Service: Nov 24, 2024 Billing Provider: MARK ANTHONY ROA DNP Common Visit Codes: [id number] INP/OBS CARE (HIGH) MARK ANTHONY ROA DNP Nov 24, 2024 04:36
[2024-11-24] MEDS: metroNIDAZOLE 500MG/100ML 100 ML IV ONE (05:15)
[2024-11-24] MEDS: POTASSIUM CHL 20 Meq TABLET PO ONE (05:57)
[2024-11-24] MEDS: ACCU-CHEK COMFORT CURVE STRIP VI SCH (05:58)
[2024-11-24] MEDS: InsuLIN REG 1unit/0.01ml Soln (100units/ml) SC SCH (06:14)
[2024-11-24 06:38] LABS: Basophils # (auto) 0 10 ^3/uL (0-0.2); Basophils % (auto) 0.1 % (0.0-2.0); Eosinophils # (auto) 0 10 ^3/uL (0-0.8); Hematocrit 30.9 % (41.0-53.0); Hemoglobin 10.9 g/dL (13.5-17.5); Lymphocytes # (auto) 0.7 10 ^3/uL (0.4-5.4); Lymphocytes % (auto) 6.1 % (10.0-50.0); Mean Corpuscular Hemoglobin 29.4 pg (28.0-32.0); Mean Corpuscular Hgb Conc. 35.3 g/dL (32.0-36.0); Mean Corpuscular Volume 83.3 fL (80.0-100.0); Monocytes # (auto) 0.7 10 ^3/uL (0-1.3); Monocytes % (auto) 6.7 % (0.0-12.0); Neutrophils # (auto) 9.6 10 ^3/uL (1.6-8.6); Neutrophils % (auto) 87.1 % (37.0-80.0); Platelet Count (auto) 350 10^3/uL (140-450); Red Blood Cells 3.71 10^6/uL (4.5-5.90); Red Cell Distribution Width 13.6 % (11.8-14.3)
[2024-11-24] MEDS: SODIUM CHLORIDE 0.9% 1,000 ML IV SCH ×2 (06:44→18:15)
[2024-11-24 06:54] LABS: Alanine Aminotransferase 12 U/L (7-40); Albumin 3.9 g/dL (3.2-4.8); Anion Gap 10 (5-15); Blood Urea Nitrogen 12 mg/dL (9-23); Calcium 9.8 mg/dL (8.7-10.4); Carbon Dioxide 21 mmol/L (20-31); Chloride 101 mmol/L (98-107)
[2024-11-24 06:55] LABS: Bilirubin, Total 0.4 mg/dL (0.2-1.0); Total Protein 6.8 g/dL (5.7-8.2)
[2024-11-24 06:58] LABS: Alkaline Phosphatase 128 U/L (46-116); Aspartate Aminotransferase 10 U/L (13-40); Glucose 324 mg/dL (74-106); Potassium 2.7 mmol/L (3.5-5.1); Sodium 132 mmol/L (136-145)
[2024-11-24] MEDS: cefTRIAXone 1GM/50ML D5W 50 ML IV SCH (09:43)
[2024-11-24] MEDS: PANTOPRAZOLE 40 MG/10 ML VIAL INJ IV SCH (09:43)
[2024-11-24] MEDS: MORPHINE SULFATE INJ 2 MG/ml SYRG IV PRN (09:54)
[2024-11-24] MEDS: POTASSIUM CHLORIDE 80 MEQ, LIDOCAINE 1% (LOCAL ANESTH.) 6 ML in SODIUM CHL 0.9% 500 ML IV ONE (11:13)
--- NOTE | 2024-11-24 13:22 | DVHINCON2 ---
Date of service: Nov 24, 2024 History of Present Illness 59-year-old male with a history of rectal cancer status post resection with left lower quadrant end colostomy who has been complaining of over one-week history of pain at the colostomy site with some bleeding. Patient denies any fevers or chills. There is some output from the colostomy. Past Medical History Hypertension. Diabetes. History of rectal cancer. Past Surgical History Surgery for rectal cancer. Cholecystectomy Family History Noncontributory Social History Denies alcohol, tobacco, IV drug use Allergies: Coded Allergies: NO KNOWN ALLERGIES (Unverified , 01/04/14) Home Meds Active Scripts Pantoprazole Sodium Sesquihydr (Protonix) 40 Mg Tab, 40 MG PO DAILY, #30 TAB Prov:JOSE MERIDA MD 06/18/22 Ondansetron (Zofran) 4 Mg Tab, 1 TAB PO Q6HR, #20 TAB Prov:JOSE MERIDA MD 06/18/22 Reported Medications Gabapentin (Gabapentin) 100 Mg Cap, 100 MG PO, CAP 01/04/14 Glipizide (Glipizide) 5 Mg Tab, 5 MG PO, TAB 01/04/14 Metformin Hydrochloride (Metformin Hcl) 500 Mg Tab, 500 MG PO, TAB 01/04/14 Enalapril Maleate (VASOTEC TABLET) 2.5 Mg Tb, 2.5 MG GT 01/04/14 Current Medications Current Medications Medications (Trade) Dose Ordered Sig/Angle Route PRN Reason Start Time Stop Time Status Last Admin Pantoprazole Sodium (Protonix) 40 mg DAILY IV 11/24/24 10:00 11/24/24 09:43 Metronidazole 100 ml @ 100 mls/hr Q8HR IV 11/24/24 14:00 Ceftriaxone Sodium 50 ml @ 100 mls/hr DAILY@09 IV 11/24/24 09:00 11/24/24 09:43 Diagnostic Test (Pha) (Accu-Chek Comfort Curve T) 1 strip Q6HR 11/24/24 06:00 11/24/24 05:58 Insulin Human Regular (InsuLIN R) Q6HR SC 11/24/24 06:00 11/24/24 12:00 Dextrose 50 ml UD PRN IV Blood Sugar LESS THAN 60 11/24/24 04:15 Sodium Chloride 1,000 ml @ 70 mls/hr [id number] IV 11/24/24 04:15 11/24/24 06:44 Acetaminophen/ Hydrocodone Bitart (Reeder 5/325MG Tab) 1 tab Q4HP PRN PO MODERATE PAIN (4-6 PAIN SCALE) 11/24/24 04:15 Ondansetron HCl (Zofran) 4 mg Q4HP PRN IV NAUSEA / VOMITING 11/24/24 04:15 Docusate Sodium (Colace Capsule) 100 mg BIDPRN PRN PO FOR CONSTIPATION 11/24/24 04:15 Acetaminophen (Tylenol Tablet) 650 mg Q6HP PRN PO PAIN SCALE 1-3 OR TEMP>100.4 11/24/24 04:15 Morphine Sulfate 2 mg Q4HPRN PRN IV SEVERE PAIN (7-10 PAIN SCALE) 11/24/24 04:15 11/24/24 13:11 DC 11/24/24 09:54 Nitroglycerin (Ntrostat Sublingual) 0.4 mg Q5MINP PRN SL FOR CHEST PAIN 11/24/24 04:30 Morphine Sulfate 2 mg Q30M PRN IV FOR CHEST PAIN 11/24/24 04:30 Morphine Sulfate 4 mg Q4HPRN PRN IV SEVERE PAIN (7-10 PAIN SCALE) 11/24/24 13:15 UNV Vital Signs Vital Signs Date Time Temp Pulse Resp B/P (MAP) Pulse Ox O2 Delivery O2 Flow Rate FiO2 11/24/24 09:54 88 18 123/55 11/24/24 09:00 95 11/24/24 08:04 Room Air* 0 21 11/24/24 08:00 98.7 98.7 Physical Exam GEN: Age-appropriate male in no acute distress. Alert. HEENT: Normocephalic atraumatic. Moist mucous membranes. Anicteric sclerae. CV: RRR Respiratory: CTAB ABD: There is a left lower quadrant colostomy with necrotic mucosa with minimal stool output. The area is very tender to palpation. No surrounding erythema. No obvious narrowing or stricture with single digitation. There was localized guarding and rebound. CT of the abdomen and pelvis: 9.5 mm solid nodule in the left lower lobe of the lung. 10 mm enhancing lesion in the right lobe of the liver. Left lower quadrant colostomy with dilated bowel loops in the colostomy measuring up to 6.3 cm filled with feces. There is fat stranding adjacent in this area with extraluminal air foci consistent with perforation. Labs/Diagnostic Data Labs Test 11/24/24 12:43 11/24/24 06:10 11/24/24 03:40 11/23/24 23:40 Range/Units POC Glucose 310 H 70-106 mg/dl White Blood Count 11.0 H 4.4-10.8 10^3/uL Red Blood Count 3.71 L 4.5-5.90 10^6/uL Hemoglobin 10.9 L 13.5-17.5 g/dL Hematocrit 30.9 #L 41.0-53.0 % Mean Corpuscular Volume 83.3 80.0-100.0 fL Mean Corpuscular Hemoglobin 29.4 28.0-32.0 pg Mean Corpuscular Hemoglobin Concent 35.3 32.0-36.0 g/dL Red Cell Distribution Width 13.6 11.8-14.3 % Platelet Count 350 140-450 10^3/uL Mean Platelet Volume 7.0 6.9-10.8 fL Neutrophils (%) (Auto) 87.1 H 37.0-80.0 % Lymphocytes (%) (Auto) 6.1 L 10.0-50.0 % Monocytes (%) (Auto) 6.7 0.0-12.0 % Eosinophils (%) (Auto) 0.0 0.0-7.0 % Basophils (%) (Auto) 0.1 0.0-2.0 % Neutrophils # (Auto) 9.6 H 1.6-8.6 10 ^3/uL Lymphocytes # (Auto) 0.7 0.4-5.4 10 ^3/uL Monocytes # (Auto) 0.7 0-1.3 10 ^3/uL Eosinophils # (Auto) 0 0-0.8 10 ^3/uL Basophils # (Auto) 0 0-0.2 10 ^3/uL Nucleated Red Blood Cells 0.0 % Sodium Level 132 #L 136-145 mmol/L Potassium Level 2.7 L 3.5-5.1 mmol/L Chloride Level 101 98-107 mmol/L Carbon Dioxide Level 21 20-31 mmol/L Anion Gap 10 5-15 Blood Urea Nitrogen 12 9-23 mg/dL Creatinine 0.92 0.700-1.30 mg/dL Glomerular Filtration Rate Calc 96 >90 mL/min BUN/Creatinine Ratio 13.0 10.0-20.0 Serum Glucose 324 #H 74-106 mg/dL Calcium Level 9.8 8.7-10.4 mg/dL Total Bilirubin 0.4 0.2-1.0 mg/dL Aspartate Amino Transferase (AST) 10 L 13-40 U/L Alanine Aminotransferase (ALT) 12 7-40 U/L Alkaline Phosphatase 128 H 46-116 U/L Total Protein 6.8 5.7-8.2 g/dL Albumin 3.9 3.2-4.8 g/dL Lactic Acid Level 1.9 0.4-2.0 mmol/L Lipase 32 12-53 U/L Assessment 1. Colonic perforation within the abdominal wall of the colostomy site likely secondary to necrotic colon. Plan/Recommendation 1. Exploratory laparotomy with bowel resection with colostomy versus ileostomy. Informed consent: The surgery and its risks including but not limited to infection, bleeding requiring possible blood transfusion with the risk of hepatitis or HIV infection, possible perioperative NV or stroke, placing colostomy or ileostomy at a different site from the current colostomy site were explained to the patient and his . All questions were answered to their satisfaction. The patient expressed verbal understanding and wished to proceed with the surgery. Plan discussed with: Patient, Spouse JOSE SOUZA MD Nov 24, 2024 13:22
[2024-11-24] MEDS: metroNIDAZOLE 500MG/100ML 100 ML IV SCH (13:39)
[2024-11-24 14:09] LABS: Chloride 105 mmol/L (98-107)
[2024-11-24] MEDS: MORPHINE SULFATE 4 MG/ML SYR/VIAL IV PRN (14:09)
[2024-11-24 14:10] LABS: Anion Gap 7 (5-15); Carbon Dioxide 23 mmol/L (20-31)
[2024-11-24 14:11] LABS: Calcium 8.8 mg/dL (8.7-10.4)
[2024-11-24 14:13] LABS: Potassium 3.3 mmol/L (3.5-5.1); Sodium 135 mmol/L (136-145)
[2024-11-24 14:15] LABS: BUN/Creatinine Ratio 13.8 (10.0-20.0); Blood Urea Nitrogen 12 mg/dL (9-23)
[2024-11-24 14:16] LABS: Glucose 296 mg/dL (74-106)
--- NOTE | 2024-11-24 14:18 | DVHPNRES ---
Progress Note Date Seen: Nov 24, 2024 Resident Creating Document: JANI EVANS RESIDENT Medical Necessity Reason Pt with a Central, PICC or Fol: No Medical Necessity Reason abdominal pain Subjective Review of Systems This is a 51 year old male with a past medical history of colon cancer s/p section in 2015 and colostomy bag, diabetes mellitus, hypertension. He presented to [facility] ED with complaint of acute abdominal pain. Patient said that he has been having the pain for the past 2 weeks that is generalized and associated with loss of appetite, but without nausea or vomiting. Patient also mentioned that he skin around the colostomy is red and the colostomy bag has some amount of blood in it. Patient denied chest pain, headache, dizziness, diaphoresis, shortness of breath, nausea, vomiting, fever, chill. Vitals are temperature 99.1, pulse 111, RR:16 and Blood pressure 128/71. Laboratory data showed WBC 11.3, platelets 358, sodium 127, potassium 3.1, BUN 11, creatinine 1.17, GFR 72, glucose 644, lipase 32. Abdomen/pelvis CT revealing solid nodules measuring 9.5 mm is seen in the left lower lobe, and enhancing lesion measuring 10 mm seen in the right lobe of liver suggestive of hemangioma or materials; colostomy is noted in the left lower quadrant with dilated bowel loops seen in the colostomy measuring a proximally 6.3 cm, appears to be loaded with feces; mild fat stranding is noted in the adjacent subcutaneous fat with extraluminal air foci questionable for perforation. Patient started IV antibiotic regimen Flagyl, Constitutional: Denies fever no chills, fatigue and generalized malaise HEENT: Denies headache, ear pain, ear discharges, conjunctivitis, nasal discharge throat pain Cardiovascular: Denies chest pain, palpitation, orthopnea, PND, or pedal edema Respiratory: Denies shortness of breath, cough cough, sputum production, hemoptysis, GI: As mentioned in the HPI : Denies frequency, urgency, hematuria, Endocrine: Denies unintentional weight gain or weight loss, feeling of hot flashes, Dexter: Denies easy bruising, bleeding disorders, epistaxis Musculoskeletal: Denies joint pains, muscle aches Psych: No evidence of depression, servando, suicidal ideation Objective vital signs Vital Sign Date Time Temp Pulse Resp B/P (MAP) Pulse Ox O2 Delivery O2 Flow Rate FiO2 11/24/24 09:54 88 18 123/55 11/24/24 09:00 95 11/24/24 08:04 Room Air* 0 21 11/24/24 08:00 98.7 98.7 medications Current Medications Medications Dose Ordered Sig/Angle Route Start Time Stop Time Status Last Admin Dose Admin Pantoprazole Sodium 40 mg DAILY IV 11/24/24 10:00 11/24/24 09:43 40 MG Metronidazole 100 ml @ 100 mls/hr Q8HR IV 11/24/24 14:00 11/24/24 13:39 100 MLS/HR Ceftriaxone Sodium 50 ml @ 100 mls/hr DAILY@09 IV 11/24/24 09:00 11/24/24 09:43 100 MLS/HR Diagnostic Test (Pha) 1 strip Q6HR 11/24/24 06:00 11/24/24 05:58 1 STRIP Insulin Human Regular Q6HR SC 11/24/24 06:00 11/24/24 12:00 8 UNITS Dextrose 50 ml UD PRN IV 11/24/24 04:15 Sodium Chloride 1,000 ml @ 70 mls/hr [id number] IV 11/24/24 04:15 11/24/24 06:44 70 MLS/HR Acetaminophen/ Hydrocodone Bitart 1 tab Q4HP PRN PO 11/24/24 04:15 Ondansetron HCl 4 mg Q4HP PRN IV 11/24/24 04:15 Docusate Sodium 100 mg BIDPRN PRN PO 11/24/24 04:15 Acetaminophen 650 mg Q6HP PRN PO 11/24/24 04:15 Nitroglycerin 0.4 mg Q5MINP PRN SL 11/24/24 04:30 Morphine Sulfate 2 mg Q30M PRN IV 11/24/24 04:30 Morphine Sulfate 4 mg Q4HPRN PRN IV 11/24/24 13:15 Examination General Appearance: Alert, Oriented X3, Cooperative, abdominal pain with mild distress HEENT: Atraumatic, PERRLA, EOMI, Mucous membrane moist/pink Respiratory: Clear to auscultation, Normal air movement Cardiovascular: Regular rate, Normal S1, Normal S2, No murmurs, no chest wall tenderness Abdominal: Distention, tenderness, hypoactive bowel sounds present, colostomy bag present with liquid feces and spots of blood Extremities: No clubbing, No cyanosis, No edema, Normal pulses, No tenderness/swelling Skin: No rashes, No breakdown, No significant lesion Neuro: Normal gait, Normal speech, Strength at 5/5 X4 ext, Normal tone, Sensation intact, Cranial nerves 3-12 NL, Reflexes 2+ Psych/Mental Status: Mental status NL, Mood NL laboratory and microbiology Laboratory Tests 11/24/24 06:10 Test 11/24/24 06:10 Range/Units Serum Glucose 324 #H 74-106 mg/dL Problem List/Assessment/Plan Problem List/Assessment/Plan Assessment Colonic perforation within the abdominal wall of the colostomy site likely secondary to necrotic colon. Abdominal wall cellulitis. hypokalemia hyponatremia Leukocytosis History of colon cancer status post resection Possible metastasis to the lungs and liver, by CT report Diabetes mellitus Hypertension. plan Antibiotics: Metronidazole and ceftriaxone NPO IV fluid Replace electrolytes Daily CBC and CMP Surgical consult GI consult Code status: Full Goal of care discussed for more than 35 minutes Case and plan discussed and reviewed with Dr. Blanco Plan discussed with: Patient, Spouse My Orders My Orders Orders - JANI EVANS Procedure Category Date Status Time Potassium Chloride PHA 11/24/24 In Process (Potassium Chloride). 10:00 * Gi Dvh Blue Split Trimmer CONS 11/24/24 Transmitted 12:04 Date of Service: Nov 24, 2024 Billing Provider: ROSSI BLANCO MD Common Visit Codes: [id number] INP/OBS CARE(HIGH) Secondary Visit Codes: [id number] CARE PLAN 30 MINUTES JANI EVANS Nov 24, 2024 14:18 ROSSI BLANCO MD Nov 29, 2024 20:45
[2024-11-24 14:35] LABS: INR 1.02 (0.9-1.15); Partial Thromboplastin Time 29.1 SEC (24.5-34.5); Prothrombin Time 10.8 sec (9.3-11.8)
[2024-11-24] MEDS ORDERED: fentaNYL CITRATE 100 MCG/2 ML VL ONE (14:46)
[2024-11-24] MEDS ORDERED: ROCURONIUM 10MG/ML 10ML VIAL IV ONE (14:46)
[2024-11-24] MEDS ORDERED: SUGAMMADEX 200mg/2ml Vial (100MG/ML) IV ONE (14:46)
[2024-11-24] MEDS ORDERED: DexAMETHasone SOD PHOS 10MG/1ML VIAL INJ ONE ×2 (14:46→16:00)
[2024-11-24] MEDS ORDERED: KETOROLAC TROMETH 30 MG/ML 1ML VIAL ONE (14:46)
[2024-11-24] MEDS ORDERED: PROPOFOL 10 MG/ML 20 ML IV ONE (14:46)
[2024-11-24] MEDS ORDERED: GLYCOPYRROLATE 0.2 MG/ML 1ML VIAL ONE (14:46)
[2024-11-24] MEDS ORDERED: ONDANSETRON HCL 4 MG/2 ML VIAL ONE (14:46)
[2024-11-24] MEDS ORDERED: LIDOCAINE 2% (LOCAL ANESTH.) PF 5ml SDV ONE (14:46)
[2024-11-24] MEDS ORDERED: KETAMINE 50mg/ML 1ml syringe ONE (14:50)
[2024-11-24] MEDS ORDERED: PHENYLEPHRINE HCL 10 MG/ML VL ONE (15:35)
[2024-11-24] MEDS ORDERED: SODIUM CHLORIDE LOCK 10 ML ONE (15:35)
[2024-11-24] MEDS ORDERED: EPINEPHrine HCL 1 MG/1 ML AMP ONE (16:01)
[2024-11-24] MEDS: BUPIVACAINE 0.25% INJ 50ML VIAL ONE (16:24)
[2024-11-24] MEDS: ACETAMINOPHEN IV 100 ML IV ONE (16:25)
[2024-11-24] MEDS ORDERED: ERTU5TAB (16:27)
[2024-11-24] MEDS ORDERED: KETO2CRE4 (16:27)
[2024-11-24] MEDS ORDERED: PRAV20TA3 (16:27)
[2024-11-24] MEDS ORDERED: LISI2.5T47 (16:27)
[2024-11-24] MEDS ORDERED: METF-372 (16:27)
[2024-11-24] MEDS ORDERED: GABA-339 PO (16:27)
[2024-11-24] MEDS ORDERED: SEMA1INJ2 (16:27)
[2024-11-24] MEDS ORDERED: TAMS1CAP25 (16:27)
[2024-11-24] MEDS ORDERED: CLOT1SOL6 (16:27)
[2024-11-24] MEDS ORDERED: MELO15TA29 (16:27)
[2024-11-24] MEDS ORDERED: ceFAZolin 1GM VL ONE (16:58)
[2024-11-24 18:03] VITALS: PULSE 102; RESP 21; O2SAT 93
--- NOTE | 2024-11-24 18:22 | DVHOP2 ---
Operative Report - 2 Report Details Date: 11/24/24 Preop Diagnosis: 1. Necrotic colostomy with perforation Postop Diagnosis: 1. 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 All questions were answered to their satisfaction. He expressed verbal understanding and wished to proceed with the surgery. Complications: None Estimated Blood Loss: 100 mL Fluids: 3 L Findings: Perforation with fecal contamination in the abdominal wall at the colostomy site Name of Procedure Performed Exploratory laparotomy with resection of necrotic and perforated colostomy with colostomy revision Procedure Details Procedure Details: After induction of general anesthesia, a Gage catheter was placed. Patient's colostomy opening was then suture closed using 2-0 Vicryl sutures. His abdomen including the colostomy site was then prepped and draped in standard surgical fashion. Midline incision was made and this incision was taken through the abdominal wall down to the fascia which was opened using electrocautery. There was no obvious abscess in the intra-abdominal cavity relatively small amount of adhesions. These were all taken down and the dissection proceeded laterally to the left to the colostomy site. Once the colon involving the colostomy site was completely freed up, the colostomy was then detached from the skin. Once we got into the subcutaneous tissue, there fecal material contaminating the soft tissue in this area. An attempt was made to control this by stapling the colon and dividing the colon in the abdominal cavity from the portion of the colon involving the the abdominal wall. Even then due to the diffuse dilatation of the colon within the abdominal wall, it took some time to clear out all the feces from this area. The colon was then completely and resected from the abdominal wall and sent off the surgical field. The fascial defect was then closed using interrupted 1. Ethibond sutures. Surgical site was then well irrigated with diluted Betadine irrigation. Cuca drain was then placed into this abdominal wall defect and overlying soft tissue was reapproximated using interrupted 2-0 Vicryl sutures. The skin was left partially open. Minimal dissection was performed to free up the descending colon and was noted the patient had still somewhat of a tortuous colon and the colon involved with the colostomy site the appeared to be the sigmoid colon. A small circular incision was made in the left upper quadrant and this incision was taken through the abdominal wall down to the fascia. A cruciate incision was made at the fascia big enough to fit 3-0 my fingers easily. Descending colon stump was then easily placed through this opening without twisting of the mesentery. 2-0 Vicryl sutur es were used to secure the mesocolon to the peritoneum to prevent any slippage. Abdominal cavity was then irrigated with approximately 6 L of warm Ancef irrigation. A 15 Y[place]ut Nicanor drain was placed along the left gutter and brought out through a separate stab incision in the left lower quadrant and secured to the skin using 3-0 nylon sutures. A 2nd 15 [place] [address] drain was pl aced into the pelvis and brought out through stab incision in the right lower quadrant and secured to the skin using 3-0 nylon sutures. Midline fascia was then closed using running looped 0 PDS sutures with interrupted 1. Ethibond sutures. Surgical site was well irrigated again and skin incision was then closed using jeanne. Colostomy was then matured by taking the in the staple line. There was healthy bleeding in the mucosa appeared pink and viable. I gently explored the lumen and there was no narrowing at the fascial level. The colostomy was then matured using 2-0 and 3-0 Vicryl sutures. Surgical sites were cleaned and dried and dressings were applied. Sponge, needle, instrument count at the end of the case were reported to be correct by the nursing staff. Patient tolerated procedure well and was awakened, extubated and transferred to recovery in stable condition. Specimen: Sigmoid colon at the colostomy site Condition Stable Disposition Still a Patient JOSE SOUZA MD Nov 24, 2024 18:22
[2024-11-24] MEDS ORDERED: NALOXONE HCL 0.4 MG/ML VIAL IV PRN (18:30)
[2024-11-24] MEDS ORDERED: ePHEDrine SULFATE 50 MG/ML AMP IV PRN (18:30)
[2024-11-24] MEDS ORDERED: FLUMAZENIL 0.1 MG/ML INJ 10ML MDV IV PRN (18:30)
[2024-11-24] MEDS ORDERED: hydrALAZINE HCL 20 MG/ML VL IV PRN (18:30)
[2024-11-24] MEDS ORDERED: ONDANSETRON HCL 4 MG/2 ML VIAL IV PRN (18:30)
[2024-11-24] MEDS: HYDROmorphone HCL 2 MG/ML VL/or syr IV PRN (18:30)
[2024-11-24] MEDS ORDERED: fentaNYL CITRATE 100 MCG/2 ML VL IV PRN (18:30)
[2024-11-24 19:03] VITALS: PULSE 92; RESP 15; O2SAT 95
[2024-11-24 21:00] VITALS: BP 119/60; PULSE 87; RESP 18; TEMP 98.7; O2SAT 97
[2024-11-24] MEDS: HYDROcodone-ACET 5/325MG TAB PO PRN (21:12)
[2024-11-25] VITALS (8 sets, daily range): BP systolic 119–136; BP diastolic 63–78; PULSE 56–97; RESP 16–19; TEMP 97.4–98; O2SAT 94–98
[2024-11-25 06:20] LABS: Basophils # (auto) 0 10 ^3/uL (0-0.2); Eosinophils # (auto) 0 10 ^3/uL (0-0.8); Hematocrit 31.4 % (41.0-53.0); Hemoglobin 10.9 g/dL (13.5-17.5); Lymphocytes # (auto) 0.4 10 ^3/uL (0.4-5.4); Lymphocytes % (auto) 4.2 % (10.0-50.0); Mean Corpuscular Hemoglobin 29.7 pg (28.0-32.0); Mean Corpuscular Hgb Conc. 34.5 g/dL (32.0-36.0); Monocytes # (auto) 0.2 10 ^3/uL (0-1.3); Monocytes % (auto) 2.1 % (0.0-12.0); Neutrophils # (auto) 8.7 10 ^3/uL (1.6-8.6); Neutrophils % (auto) 93.7 % (37.0-80.0); Platelet Count (auto) 320 10^3/uL (140-450); Red Blood Cells 3.65 10^6/uL (4.5-5.90); Red Cell Distribution Width 14.1 % (11.8-14.3); White Blood Cell 9.3 10^3/uL (4.4-10.8)
[2024-11-25 06:38] LABS: INR 1.03 (0.9-1.15); Partial Thromboplastin Time 30.2 SEC (24.5-34.5); Prothrombin Time 10.9 sec (9.3-11.8)
[2024-11-25 06:47] LABS: Alanine Aminotransferase 13 U/L (7-40); Albumin 3.7 g/dL (3.2-4.8); Alkaline Phosphatase 105 U/L (46-116); Anion Gap 11 (5-15); Aspartate Aminotransferase 18 U/L (13-40); BUN/Creatinine Ratio 21.7 (10.0-20.0); Blood Urea Nitrogen 20 mg/dL (9-23); Calcium 9.3 mg/dL (8.7-10.4); Potassium 4.6 mmol/L (3.5-5.1); Sodium 137 mmol/L (136-145)
[2024-11-25 06:48] LABS: Bilirubin, Total 0.3 mg/dL (0.2-1.0); Carbon Dioxide 17 mmol/L (20-31); Chloride 109 mmol/L (98-107); Glucose 389 mg/dL (74-106); Total Protein 6.1 g/dL (5.7-8.2)
[2024-11-25] MEDS ORDERED: SORE THROAT SPRAY 6OZ BOTTLE MT PRN (13:30)
--- NOTE | 2024-11-25 13:31 | DVHPN2 ---
Progress Note - Dictate Date Seen: Nov 25, 2024 Medical Necessity Reason Pt with a Central, PICC or Fol: No Subjective E: no major events o/n. c/o sore throat. vital signs Vital Sign Date Time Temp Pulse Resp B/P (MAP) Pulse Ox O2 Delivery O2 Flow Rate FiO2 11/25/24 10:16 97 19 122/73 11/25/24 08:25 97.7 98 97.7 11/25/24 08:00 Nasal Cannula* 2 28 Total Intake and Output 11/24/24 11/24/24 11/25/24 15:00 23:00 07:00 Intake Total 744.75 ml 100 ml 100 ml Output Total 390 ml 410 ml Balance 744.75 ml -290 ml -310 ml medications Current Medications Medications Dose Ordered Sig/Angle Route Start Time Stop Time Status Last Admin Dose Admin Pantoprazole Sodium 40 mg DAILY IV 11/24/24 10:00 11/25/24 10:16 40 MG Metronidazole 100 ml @ 100 mls/hr Q8HR IV 11/24/24 14:00 11/25/24 05:37 100 MLS/HR Ceftriaxone Sodium 50 ml @ 100 mls/hr DAILY@09 IV 11/24/24 09:00 11/25/24 10:16 100 MLS/HR Diagnostic Test (Pha) 1 strip Q6HR 11/24/24 06:00 11/25/24 12:00 1 STRIP Insulin Human Regular Q6HR SC 11/24/24 06:00 11/25/24 12:29 8 UNITS Dextrose 50 ml UD PRN IV 11/24/24 04:15 Acetaminophen/ Hydrocodone Bitart 1 tab Q4HP PRN PO 11/24/24 04:15 11/24/24 21:12 1 TAB Ondansetron HCl 4 mg Q4HP PRN IV 11/24/24 04:15 Docusate Sodium 100 mg BIDPRN PRN PO 11/24/24 04:15 Acetaminophen 650 mg Q6HP PRN PO 11/24/24 04:15 Nitroglycerin 0.4 mg Q5MINP PRN SL 11/24/24 04:30 Morphine Sulfate 2 mg Q30M PRN IV 11/24/24 04:30 Morphine Sulfate 4 mg Q4HPRN PRN IV 11/24/24 13:15 11/25/24 10:16 4 MG Sodium Chloride 1,000 ml @ 100 mls/hr Q10H IV 11/24/24 18:15 11/25/24 05:32 100 MLS/HR Phenol/Menthol 1 spr Q2HP PRN MT 11/25/24 13:30 UNV objective GEN: NAD ABD: surgical dressings clean and dry. JPs with scant output. NGT 50 mL laboratory and microbiology Laboratory Tests 11/25/24 05:38 Test 11/25/24 05:38 Range/Units Serum Glucose 389 H 74-106 mg/dL Assessment/Plan A: 1. POD #1 P: 1. cont curr tx 2. PT eval. Plan discussed with: Patient JOSE SOUZA MD Nov 25, 2024 13:31
--- NOTE | 2024-11-25 16:23 | DVHPNRES ---
Progress Note Date Seen: Nov 25, 2024 Resident Creating Document: JANI EVANS RESIDENT Medical Necessity Reason Pt with a Central, PICC or Fol: No Medical Necessity Reason S/P surgery History of colon cancer with colostomy bag present Subjective Review of Systems This is a 51 year old male with a past medical history of colon cancer s/p section in 2014 and colostomy bag, diabetes mellitus, hypertension. He presented to [facility] ED with complaint of acute abdominal pain. Patient said that he has been having the pain for the past 2 weeks that is generalized and associated with loss of appetite, but without nausea or vomiting. Patient also mentioned that he skin around the colostomy is red and the colostomy bag has some amount of blood in it. Patient denied chest pain, headache, dizziness, diaphoresis, shortness of breath, nausea, vomiting, fever, chill. Vitals are temperature 99.1, pulse 111, RR:16 and Blood pressure 128/71. Laboratory data showed WBC 11.3, platelets 358, sodium 127, potassium 3.1, BUN 11, creatinine 1.17, GFR 72, glucose 644, lipase 32. Abdomen/pelvis CT revealing solid nodules measuring 9.5 mm is seen in the left lower lobe, and enhancing lesion measuring 10 mm seen in the right lobe of liver suggestive of hemangioma or materials; colostomy is noted in the left lower quadrant with dilated bowel loops seen in the colostomy measuring a proximally 6.3 cm, appears to be loaded with feces; mild fat stranding is noted in the adjacent subcutaneous fat with extraluminal air foci questionable for perforation. Patient started IV antibiotic regimen Donald, PN 11/25/2024: Patient is seen and examined today at the bedside. He is status post surgery. He has NG tube placed draining abdominal contents. He is on pain medication on board. Be 0. Labs today showed WBC of 9.3, chloride 107 carbon dioxide 17 his, glucose 389. Patient currently patient is currently on ceftriaxone and metronidazole and also morphine 4 mg Q 4 H p.r.n. Objective vital signs Vital Sign Date Time Temp Pulse Resp B/P (MAP) Pulse Ox O2 Delivery O2 Flow Rate FiO2 11/25/24 15:22 70 16 123/72 11/25/24 12:30 97.7 97 97.7 11/25/24 08:00 Nasal Cannula* 2 28 Total Intake and Output 1/11/24/24 11/25/24 15:00 23:00 07:00 Intake Total 744.75 ml 100 ml 100 ml Output Total 390 ml 410 ml Balance 744.75 ml -290 ml -310 ml medications Current Medications Medications Dose Ordered Sig/Angle Route Start Time Stop Time Status Last Admin Dose Admin Pantoprazole Sodium 40 mg DAILY IV 11/24/24 10:00 11/25/24 10:16 40 MG Metronidazole 100 ml @ 100 mls/hr Q8HR IV 11/24/24 14:00 11/25/24 14:05 100 MLS/HR Ceftriaxone Sodium 50 ml @ 100 mls/hr DAILY@09 IV 11/24/24 09:00 11/25/24 10:16 100 MLS/HR Diagnostic Test (Pha) 1 strip Q6HR 11/24/24 06:00 11/25/24 12:00 1 STRIP Insulin Human Regular Q6HR SC 11/24/24 06:00 11/25/24 12:29 8 UNITS Dextrose 50 ml UD PRN IV 11/24/24 04:15 Acetaminophen/ Hydrocodone Bitart 1 tab Q4HP PRN PO 11/24/24 04:15 11/24/24 21:12 1 TAB Ondansetron HCl 4 mg Q4HP PRN IV 11/24/24 04:15 Docusate Sodium 100 mg BIDPRN PRN PO 11/24/24 04:15 Acetaminophen 650 mg Q6HP PRN PO 11/24/24 04:15 Nitroglycerin 0.4 mg Q5MINP PRN SL 11/24/24 04:30 Morphine Sulfate 2 mg Q30M PRN IV 11/24/24 04:30 Morphine Sulfate 4 mg Q4HPRN PRN IV 11/24/24 13:15 11/25/24 15:22 4 MG Sodium Chloride 1,000 ml @ 100 mls/hr Q10H IV 11/24/24 18:15 11/25/24 14:15 100 MLS/HR Phenol/Menthol 1 spr Q2HP PRN MT 11/25/24 13:30 Examination General Appearance: Alert, Oriented X3, Cooperative, abdominal pain with mild distress, NG tube placed, fluids running HEENT: Atraumatic, PERRLA, EOMI, Mucous membrane moist/pink Respiratory: Clear to auscultation, Normal air movement Cardiovascular: Regular rate, Normal S1, Normal S2, No murmurs, no chest wall tenderness Abdominal: Status post surgery. Abdominal bandage in been place surgical site and intact no drainage noted patient is an abdominal pain Extremities: No clubbing, No cyanosis, No edema, Normal pulses, No tenderness/swelling Skin: No rashes, No breakdown, No significant lesion Neuro: Normal gait, Normal speech, Strength at 5/5 X4 ext, Normal tone, Sensation intact, Cranial nerves 3-12 NL, Reflexes 2+ Psych/Mental Status: Mental status NL, Mood NL laboratory and microbiology Laboratory Tests 11/25/24 05:38 Test 11/25/24 05:38 Range/Units Serum Glucose 389 H 74-106 mg/dL Microbiology Date/Time Source Procedure Growth Status 11/24/24 17:20 Anus Gram Stain Pending Resulted 11/24/24 17:20 Anus Anaerobic Culture - Preliminary Resulted 11/24/24 17:20 Anus Aerobic Culture - Preliminary Resulted 11/24/24 03:40 Blood Blood Culture - Preliminary NO GROWTH AFTER 24 HOURS OF INCUBATION. Resulted Labs and/or images reviewed: Labs reviewed by me, Image(s) reviewed by me Problem List/Assessment/Plan Problem List/Assessment/Plan Assessment Sepsis due to colonic perforation/abdominal wall cellulitis; present on Admission Colonic perforation within the abdominal wall of the colostomy site likely secondary to necrotic colon --> s/p Exploratory laparotomy with resection of necrotic and perforated colostomy with colostomy revision Abdominal wall cellulitis. hypokalemia hyponatremia Leukocytosis History of colon cancer status post resection Possible metastasis to the lungs and liver, by CT report Diabetes mellitus Hypertension. Mild anemia plan Antibiotics: Metronidazole and ceftriaxone NPO, IV fluid Replace electrolytes Daily CBC and CMP Surgical team following GI consult To follow up with Dr. Zavaleta about the new findings in lung and liver; the patient's was provided with a copy of imaging showing lung nodule and liver nodule Code status: Full Goal of care discussed for 20 minutes Case and plan discussed and reviewed with Dr. Diane Plan discussed with: Patient, Spouse, Other (RN) Addendum Addendum Addendum I was physically present for the tay portions of the service provided to patient by THE RESIDENT. I have reviewed the documentation, discussed the case with resident and agree with the resident's documentation except as noted. Also the patient's clinical case was discussed with the patient's nurse. This medical document was created using an electronic medical record system with computerized dictation system. Although this document has been carefully reviewed, there might still be some phonetic and typographical errors. These areas are purely typographical due to imperfections of the software programs, and do not reflect any compromise in the patient's medical care. Late signature. Date of Service: Nov 25, 2024 Billing Provider: BELINDA DIANE MD Common Visit Codes: [id number] INP/OBS CARE(HIGH) Secondary Visit Codes: [id number] CARE PLAN 30 MINUTES (20 minutes) JANI EVANS RESIDENT Nov 25, 2024 16:23 BELINDA DIANE MD Nov 26, 2024 21:31
[2024-11-26] VITALS (7 sets, daily range): BP systolic 129–147; BP diastolic 60–75; PULSE 64–77; RESP 15–19; TEMP 97.7–98.4; O2SAT 94–98
[2024-11-26 07:11] LABS: Anion Gap 11 (5-15); Sodium 141 mmol/L (136-145)
[2024-11-26 07:12] LABS: Carbon Dioxide 18 mmol/L (20-31); Chloride 112 mmol/L (98-107)
[2024-11-26 07:13] LABS: Calcium 8.4 mg/dL (8.7-10.4)
[2024-11-26 07:15] LABS: Basophils # (auto) 0 10 ^3/uL (0-0.2); Basophils % (auto) 0.1 % (0.0-2.0); Eosinophils # (auto) 0 10 ^3/uL (0-0.8); Eosinophils % (auto) 0.1 % (0.0-7.0); Hematocrit 35.2 % (41.0-53.0); Hemoglobin 11.6 g/dL (13.5-17.5); Lymphocytes # (auto) 1.2 10 ^3/uL (0.4-5.4); Lymphocytes % (auto) 9.4 % (10.0-50.0); Mean Corpuscular Hemoglobin 28.8 pg (28.0-32.0); Mean Corpuscular Volume 87.2 fL (80.0-100.0); Monocytes # (auto) 0.4 10 ^3/uL (0-1.3); Neutrophils # (auto) 11.3 10 ^3/uL (1.6-8.6); Neutrophils % (auto) 87.4 % (37.0-80.0); Nucleated Red Blood Cells % 0.2 %; Platelet Count (auto) 400 10^3/uL (140-450); Red Blood Cells 4.04 10^6/uL (4.5-5.90); Red Cell Distribution Width 14.4 % (11.8-14.3); White Blood Cell 12.9 10^3/uL (4.4-10.8)
[2024-11-26 07:17] LABS: BUN/Creatinine Ratio 27.5 (10.0-20.0); Blood Urea Nitrogen 19 mg/dL (9-23)
[2024-11-26 07:23] LABS: Glucose 199 mg/dL (74-106)
[2024-11-26 07:38] LABS: Platelet Estimate Adequate
--- NOTE | 2024-11-26 10:34 | DVHPN2 ---
Subjective Worsening abdominal pain Reviewed: Care Plan, H&P, Labs, Medications, Previous Orders, Radiology, Other (Consultation) Changes from previous H/P or p: Changes Objective Vitals Vital Signs Date Time Temp Pulse Resp B/P (MAP) Pulse Ox O2 Delivery O2 Flow Rate FiO2 11/26/24 08:31 71 18 129/60 11/26/24 05:00 97.9 97 97.9 11/25/24 20:00 Nasal Cannula* 2 28 Intake/Output Intake and Output 11/26/24 07:00 Intake Total 1250 ml Output Total 1150 ml Balance 100 ml Intake Oral 0 ml IV Total 1250 ml Output Urine Total 1150 ml General Appearance: Alert, Oriented X3, Cooperative, mild distress HEENT: Atraumatic Lungs: Clear to auscultation, Normal air movement Cardiovascular: Regular rate, Normal S1, Normal S2 Abdomen: Other (Hypoactive bowel sounds; two NATY drain with serosanguineous fluid; colostomy in place; diffusely tender abdomen) Genitourinary: Other (Gage's) Neuro: Normal speech, Cranial nerves 3-12 NL Psych/Mental Status: Mental status NL, Mood NL Medications Current Medications Medications Dose Ordered Sig/Angle Route Start Time Stop Time Status Last Admin Dose Admin Pantoprazole Sodium 40 mg DAILY IV 11/24/24 10:00 11/26/24 09:10 40 MG Metronidazole 100 ml @ 100 mls/hr Q8HR IV 11/24/24 14:00 11/26/24 05:47 100 MLS/HR Ceftriaxone Sodium 50 ml @ 100 mls/hr DAILY@09 IV 11/24/24 09:00 11/26/24 09:10 100 MLS/HR Diagnostic Test (Pha) 1 strip Q6HR 11/24/24 06:00 11/26/24 05:55 1 STRIP Insulin Human Regular Q6HR SC 11/24/24 06:00 11/26/24 05:56 3 UNITS Dextrose 50 ml UD PRN IV 11/24/24 04:15 Acetaminophen/ Hydrocodone Bitart 1 tab Q4HP PRN PO 11/24/24 04:15 11/26/24 09:21 1 TAB Ondansetron HCl 4 mg Q4HP PRN IV 11/24/24 04:15 Docusate Sodium 100 mg BIDPRN PRN PO 11/24/24 04:15 Acetaminophen 650 mg Q6HP PRN PO 11/24/24 04:15 Nitroglycerin 0.4 mg Q5MINP PRN SL 11/24/24 04:30 Morphine Sulfate 2 mg Q30M PRN IV 11/24/24 04:30 Morphine Sulfate 4 mg Q4HPRN PRN IV 11/24/24 13:15 11/26/24 08:31 4 MG Sodium Chloride 1,000 ml @ 100 mls/hr Q10H IV 11/24/24 18:15 11/26/24 10:24 100 MLS/HR Phenol/Menthol 1 spr Q2HP PRN MT 11/25/24 13:30 Laboratory Results Laboratory Tests 11/26/24 05:45 Chemistry Test 11/26/24 05:45 Calcium Level 8.4 mg/dL (8.7-10.4) L Microbiology Microbiology Date/Time Source Procedure Growth Status 11/24/24 17:20 Anus Gram Stain Pending Resulted 11/24/24 17:20 Anus Anaerobic Culture - Preliminary Resulted 11/24/24 17:20 Anus Aerobic Culture - Preliminary Resulted 11/24/24 03:40 Blood Blood Culture - Preliminary NO GROWTH AFTER 48 HOURS OF INCUBATION. Resulted Labs and/or images reviewed: Labs reviewed by me, Image(s) reviewed by me Assessment/Plan Assessment/Plan Covering Dr. Blanco: #Sepsis with leukocytosis; due to E coli infection associated with colonic perforation at the abdominal wall of colostomy with fecal contamination in the abdominal wall at the colostomy site; present on admission; status post exploratory laparotomy with resection of necrotic and perforated colostomy with colostomy revision on November 24, 2024 #Abdominal wall cellulitis due to E coli. #Abdominal pain due to above #MAYNOR; most likely vasomotor nephropathy in the setting of sepsis #Hypokalemia; due to GI losses #History of colon cancer status post resection; imaging studies showing lung nodule and liver nodule #Diabetes mellitus type 2 with hyperglycemia due to sepsis #Hypertensive heart disease #Normocytic anemia; most likely inflammatory #Morbid obesity To keep NPO as per surgery Adjust pain management as indicated Continue IV fluids Continue IV antibiotics Continue insulin sliding scale with hypoglycemia protocol Reviewed cultures Reviewed imaging studies and blood work Avoid nephrotoxic agents Replace electrolytes as indicated Surgery is following On GI and DVT prophylaxis Provided the patient's with a copy of the imaging study showing lung nodule and liver nodule in order discuss with outpatient oncologist upon discharge; to rule out metastasis Continue monitoring Late Entry. This medical document was created using an electronic medical record system with computerized dictation system. Although this document has been carefully reviewed, there might still be some phonetic and typographical errors. These areas are purely typographical due to imperfections of the software programs, and do not reflect any compromise in the patient's medical care. Plan discussed with: Patient, Other (Nurse) Date of Service: Nov 26, 2024 Billing Provider: BELINDA DIANE MD Common Visit Codes: [id number] INP/OBS CARE(HIGH) BELINDA DIANE MD Nov 26, 2024 10:34
[2024-11-26] MEDS: MORPHINE SULFATE 4 MG/ML SYR/VIAL IV PRN (11:29)
--- NOTE | 2024-11-26 12:54 | DVHPN2 ---
Progress Note - Dictate Date Seen: Nov 26, 2024 Medical Necessity Reason Pt with a Central, PICC or Fol: No Subjective E: no major events o/n. still c/o abdominal pain. vital signs Vital Sign Date Time Temp Pulse Resp B/P (MAP) Pulse Ox O2 Delivery O2 Flow Rate FiO2 11/26/24 11:29 78 18 129/65 11/26/24 08:00 94 Nasal Cannula* 2 28 11/26/24 05:00 97.9 97.9 Total Intake and Output 11/25/24 11/25/24 11/26/24 15:00 23:00 07:00 Intake Total 50 ml 100 ml 1100 ml Output Total 550 ml 600 ml Balance 50 ml -450 ml 500 ml medications Current Medications Medications Dose Ordered Sig/Angle Route Start Time Stop Time Status Last Admin Dose Admin Pantoprazole Sodium 40 mg DAILY IV 11/24/24 10:00 11/26/24 09:10 40 MG Metronidazole 100 ml @ 100 mls/hr Q8HR IV 11/24/24 14:00 11/26/24 05:47 100 MLS/HR Ceftriaxone Sodium 50 ml @ 100 mls/hr DAILY@09 IV 11/24/24 09:00 11/26/24 09:10 100 MLS/HR Diagnostic Test (Pha) 1 strip Q6HR 11/24/24 06:00 11/26/24 11:41 1 STRIP Insulin Human Regular Q6HR SC 11/24/24 06:00 11/26/24 11:41 4 UNITS Dextrose 50 ml UD PRN IV 11/24/24 04:15 Ondansetron HCl 4 mg Q4HP PRN IV 11/24/24 04:15 Docusate Sodium 100 mg BIDPRN PRN PO 11/24/24 04:15 Acetaminophen 650 mg Q6HP PRN PO 11/24/24 04:15 Nitroglycerin 0.4 mg Q5MINP PRN SL 11/24/24 04:30 Morphine Sulfate 2 mg Q30M PRN IV 11/24/24 04:30 Sodium Chloride 1,000 ml @ 100 mls/hr Q10H IV 11/24/24 18:15 11/26/24 10:24 100 MLS/HR Phenol/Menthol 1 spr Q2HP PRN MT 11/25/24 13:30 Morphine Sulfate 4 mg Q3HP PRN IV 11/26/24 11:15 11/26/24 11:29 4 MG objective GEN: NAD ABD: surgical incisions clean. min serosang drainage from the prev colostomy site. NATY min serosang drainage. laboratory and microbiology Laboratory Tests 11/26/24 05:45 Test 11/26/24 05:45 Range/Units Serum Glucose 199 #H 74-106 mg/dL Assessment/Plan A: 1. POD #2 P: 1. up to chair Plan discussed with: Patient JOSE SOUZA MD Nov 26, 2024 12:54
[2024-11-26] MEDS: SOD CHL 0.45% WITH 20MEQ KCL 1,000 ML IV SCH (13:00)
[2024-11-27] VITALS (7 sets, daily range): BP systolic 133–157; BP diastolic 70–77; PULSE 68–82; RESP 16–19; TEMP 98–98.6; O2SAT 94–98
[2024-11-27 06:02] LABS: Chloride 106 mmol/L (98-107); Sodium 139 mmol/L (136-145)
[2024-11-27 06:03] LABS: Anion Gap 12 (5-15); Calcium 8.8 mg/dL (8.7-10.4); Carbon Dioxide 21 mmol/L (20-31)
[2024-11-27 06:04] LABS: Basophils # (auto) 0 10 ^3/uL (0-0.2); Basophils % (auto) 0.2 % (0.0-2.0); Eosinophils # (auto) 0 10 ^3/uL (0-0.8); Eosinophils % (auto) 0.4 % (0.0-7.0); Hematocrit 32.2 % (41.0-53.0); Lymphocytes # (auto) 0.8 10 ^3/uL (0.4-5.4); Lymphocytes % (auto) 9.3 % (10.0-50.0); Mean Corpuscular Hemoglobin 29.1 pg (28.0-32.0); Mean Corpuscular Hgb Conc. 34.3 g/dL (32.0-36.0); Mean Corpuscular Volume 84.7 fL (80.0-100.0); Monocytes # (auto) 0.2 10 ^3/uL (0-1.3); Monocytes % (auto) 2.2 % (0.0-12.0); Neutrophils # (auto) 7.7 10 ^3/uL (1.6-8.6); Neutrophils % (auto) 87.9 % (37.0-80.0); Platelet Count (auto) 399 10^3/uL (140-450); Red Cell Distribution Width 14.1 % (11.8-14.3); White Blood Cell 8.7 10^3/uL (4.4-10.8)
[2024-11-27 06:08] LABS: BUN/Creatinine Ratio 16.4 (10.0-20.0); Blood Urea Nitrogen 10 mg/dL (9-23)
[2024-11-27 06:10] LABS: Glucose 155 mg/dL (74-106); Potassium 3.3 mmol/L (3.5-5.1)
--- NOTE | 2024-11-27 07:53 | DVHPN2 ---
Progress Note - Dictate Date Seen: Nov 27, 2024 Medical Necessity Reason Pt with a Central, PICC or Fol: No Subjective E: no major events o/n. still c/o abdominal pain but better than yesterday. vital signs Vital Sign Date Time Temp Pulse Resp B/P (MAP) Pulse Ox O2 Delivery O2 Flow Rate FiO2 11/27/24 05:00 98.5 75 19 157/70 (99) 98 98.5 11/26/24 20:00 Nasal Cannula* 2 28 Total Intake and Output 11/26/24 11/26/24 11/27/24 15:00 23:00 07:00 Intake Total 100 ml 1100 ml Output Total 750 ml 850 ml Balance -650 ml 250 ml medications Current Medications Medications Dose Ordered Sig/Angle Route Start Time Stop Time Status Last Admin Dose Admin Pantoprazole Sodium 40 mg DAILY IV 11/24/24 10:00 11/26/24 09:10 40 MG Metronidazole 100 ml @ 100 mls/hr Q8HR IV 11/24/24 14:00 11/27/24 05:57 100 MLS/HR Ceftriaxone Sodium 50 ml @ 100 mls/hr DAILY@09 IV 11/24/24 09:00 11/26/24 09:10 100 MLS/HR Diagnostic Test (Pha) 1 strip Q6HR 11/24/24 06:00 11/27/24 05:57 1 STRIP Insulin Human Regular Q6HR SC 11/24/24 06:00 11/27/24 06:01 2 UNITS Dextrose 50 ml UD PRN IV 11/24/24 04:15 Ondansetron HCl 4 mg Q4HP PRN IV 11/24/24 04:15 Docusate Sodium 100 mg BIDPRN PRN PO 11/24/24 04:15 Acetaminophen 650 mg Q6HP PRN PO 11/24/24 04:15 Nitroglycerin 0.4 mg Q5MINP PRN SL 11/24/24 04:30 Morphine Sulfate 2 mg Q30M PRN IV 11/24/24 04:30 Phenol/Menthol 1 spr Q2HP PRN MT 11/25/24 13:30 Morphine Sulfate 4 mg Q3HP PRN IV 11/26/24 11:15 11/27/24 03:48 4 MG Potassium Chloride/Sodium Chloride 1,000 ml @ 100 mls/hr Q10H IV 11/26/24 13:00 11/27/24 02:58 100 MLS/HR Enoxaparin Sodium 40 mg DAILY SC 11/27/24 10:00 objective GEN: NAD ABD: surgical incisions clean. min semi-feculent drainage from the prev colostomy site. NATY min output. laboratory and microbiology Laboratory Tests 11/27/24 05:32 Test 11/27/24 05:32 Range/Units Serum Glucose 155 H 74-106 mg/dL Assessment/Plan A: 1. POD #3 P: 1. dc yoni 2. up to chair! Plan discussed with: Patient JOSE SOUZA MD Nov 27, 2024 07:53
[2024-11-27] MEDS: LISINOPRIL 5 MG TAB PO ONE (08:45)
[2024-11-27] MEDS: ENOXAPARIN SOD 40 MG/0.4 ML SYRINGE SC SCH (09:14)
[2024-11-27] MEDS: POTASSIUM CHL 20MEQ/100ML 100 ML IV ONE (10:50)
[2024-11-27] MEDS ORDERED: CLINIMIX PER PHARMACY 0 ML IV SCH (12:15)
[2024-11-27] MEDS ORDERED: DEXTROSE (50%) 50ML SYRG IV SCH (12:45)
[2024-11-27 13:18] LABS: Albumin 3.3 g/dL (3.2-4.8)
[2024-11-27 13:19] LABS: Phosphorus 2.9 mg/dL (2.4-5.1)
[2024-11-27 13:22] LABS: Magnesium 1.5 mg/dL (1.6-2.6)
[2024-11-27] MEDS: MAGNESIUM SULFATE 1GM/100ML 100 ML IV ONE (16:10)
[2024-11-27] MEDS: InsuLIN REG 1unit/0.01ml Soln (100units/ml) SC SCH (18:00)
[2024-11-27] MEDS: ACCU-CHEK COMFORT CURVE STRIP VI SCH (18:00)
--- NOTE | 2024-11-27 19:35 | DVHPNRES ---
Progress Note Date Seen: Nov 27, 2024 Resident Creating Document: JANI EVANS RESIDENT Medical Necessity Reason Pt with a Central, PICC or Fol: No Medical Necessity Reason POD #3 Abdominal pain Subjective Review of Systems This is a 51 year old male with a past medical history of colon cancer s/p section in 2015 and colostomy bag, diabetes mellitus, hypertension. He presented to [facility] ED with complaint of acute abdominal pain. Patient said that he has been having the pain for the past 2 weeks that is generalized and associated with loss of appetite, but without nausea or vomiting. Patient also mentioned that he skin around the colostomy is red and the colostomy bag has some amount of blood in it. Patient denied chest pain, headache, dizziness, diaphoresis, shortness of breath, nausea, vomiting, fever, chill. Vitals are temperature 99.1, pulse 111, RR:16 and Blood pressure 128/71. Laboratory data showed WBC 11.3, platelets 358, sodium 127, potassium 3.1, BUN 11, creatinine 1.17, GFR 72, glucose 644, lipase 32. Abdomen/pelvis CT revealing solid nodules measuring 9.5 mm is seen in the left lower lobe, and enhancing lesion measuring 10 mm seen in the right lobe of liver suggestive of hemangioma or materials; colostomy is noted in the left lower quadrant with dilated bowel loops seen in the colostomy measuring a proximally 6.3 cm, appears to be loaded with feces; mild fat stranding is noted in the adjacent subcutaneous fat with extraluminal air foci questionable for perforation. Patient started IV antibiotic regimen Flagyl, PN 11/25/2024: Patient is seen and examined today at the bedside. He is status post surgery. He has NG tube placed draining abdominal contents. He is on pain medication on board. Be 0. Labs today showed WBC of 9.3, chloride 107 carbon dioxide 17 his, glucose 389. Patient currently patient is currently on ceftriaxone and metronidazole and also morphine 4 mg Q 4 H p.r.n. PN 11/25/2024: Patient seen and examined. He was lying in bed with NG tube. Still NPO. He has no complaints. Labs value showed wbc: 8.7, K: 3.2, m.5. [place] dc and patient is working with PT. Objective vital signs Vital Sign Date Time Temp Pulse Resp B/P (MAP) Pulse Ox O2 Delivery O2 Flow Rate FiO2 11/27/24 17:01 73 16 133/71 11/27/24 17:00 98.4 95 98.4 11/27/24 08:00 Nasal Cannula* 2 28 Total Intake and Output 11/26/24 11/26/24 11/27/24 15:00 23:00 07:00 Intake Total 100 ml 1100 ml Output Total 750 ml 850 ml Balance -650 ml 250 ml medications Current Medications Medications Dose Ordered Sig/Angle Route Start Time Stop Time Status Last Admin Dose Admin Pantoprazole Sodium 40 mg DAILY IV 11/24/24 10:00 11/27/24 09:13 40 MG Metronidazole 100 ml @ 100 mls/hr Q8HR IV 11/24/24 14:00 11/27/24 13:55 100 MLS/HR Ceftriaxone Sodium 50 ml @ 100 mls/hr DAILY@09 IV 11/24/24 09:00 11/27/24 09:13 100 MLS/HR Ondansetron HCl 4 mg Q4HP PRN IV 11/24/24 04:15 Docusate Sodium 100 mg BIDPRN PRN PO 11/24/24 04:15 Acetaminophen 650 mg Q6HP PRN PO 11/24/24 04:15 Nitroglycerin 0.4 mg Q5MINP PRN SL 11/24/24 04:30 Morphine Sulfate 2 mg Q30M PRN IV 11/24/24 04:30 Phenol/Menthol 1 spr Q2HP PRN MT 11/25/24 13:30 Morphine Sulfate 4 mg Q3HP PRN IV 11/26/24 11:15 11/27/24 16:31 4 MG Potassium Chloride/Sodium Chloride 1,000 ml @ 100 mls/hr Q10H IV 11/26/24 13:00 11/27/24 09:00 100 MLS/HR Enoxaparin Sodium 40 mg DAILY SC 11/27/24 10:00 11/27/24 09:14 40 MG Amino Acids 0 ml @ 0 mls/hr PER PHARMACY IV 11/27/24 12:15 Diagnostic Test (Pha) 1 strip Q6HR 11/27/24 18:00 11/27/24 18:00 1 STRIP Insulin Human Regular FOLLOW SLIDING SCALE Q6HR SC 11/27/24 18:00 Dextrose 50 ml UD IV 11/27/24 12:45 Amino Acids/ Electrolytes/ Dextrose 1,000 ml @ 41 mls/hr DAILY@2200 IV 11/27/24 22:00 Examination General Appearance: Alert, Oriented X3, Cooperative, abdominal pain with mild distress, NG tube placed, fluids running HEENT: Atraumatic, PERRLA, EOMI, Mucous membrane moist/pink Respiratory: Clear to auscultation, Normal air movement Cardiovascular: Regular rate, Normal S1, Normal S2, No murmurs, no chest wall tenderness Abdominal: Status post surgery. jeanne noted, drains seen. pain is passing gas, [place] dc Extremities: No clubbing, No cyanosis, No edema, Normal pulses, No tenderness/swelling Skin: No rashes, No breakdown, No significant lesion Neuro: Normal gait, Normal speech, Strength at 5/5 X4 ext, Normal tone, Sensation intact, Cranial nerves 3-12 NL, Reflexes 2+ Psych/Mental Status: Mental status NL, Mood NL laboratory and microbiology Laboratory Tests 11/27/24 05:32 Test 11/27/24 05:32 Range/Units Serum Glucose 155 H 74-106 mg/dL Microbiology Date/Time Source Procedure Growth Status 11/24/24 17:20 Anus Gram Stain - Final Resulted 11/24/24 17:20 Anus Anaerobic Culture - Preliminary Resulted 11/24/24 17:20 Aerobic Culture - Final Escherichia coli Klebsiella pneumoniae Enterococcus faecalis Resulted 11/24/24 03:40 Blood Blood Culture - Preliminary NO GROWTH AFTER 72 HOURS OF INCUBATION. Resulted Problem List/Assessment/Plan Problem List/Assessment/Plan Assessment Sepsis due to colonic perforation/abdominal wall cellulitis; present on Admission Colonic perforation within the abdominal wall of the colostomy site likely secondary to necrotic colon --> s/p Exploratory laparotomy with resection of necrotic and perforated colostomy with colostomy revision Abdominal wall cellulitis. hypokalemia hyponatremia Leukocytosis History of colon cancer status post resection Possible metastasis to the lungs and liver, by CT report Diabetes mellitus Hypertension. Mild anemia plan Antibiotics: Metronidazole and ceftriaxone NPO, IV fluid Replace electrolytes Daily CBC and CMP Surgical team following GI following climinix per pharmacy To follow up with Dr. Zavaleta about the new findings in lung and liver Code status: Full Goal of care discussed for more than 35 minutes Case and plan discussed and reviewed with Dr. gallegos Plan discussed with: Patient My Orders My Orders Orders - JANI EVANS RESIDENT Procedure Category Date Status Time Clinimix Per Pharmacy PHA 11/27/24 In Process 12:15 Glucose Blood PHA 11/27/24 In Process (Accu-Chek Comfort 18:00 Insulin R (Human) PHA 11/27/24 In Process (Insulin R) 18:00 Dextrose 50% Syringe PHA 11/27/24 In Process 12:45 Amino Acid Infusion PHA 11/27/24 In Process In D10w (Clinimix 4. 22:00 Comprehensive LAB 11/28/24 Verified Metabolic Panel 04:00 Magnesium LAB 11/28/24 Verified 04:00 Phosphorus LAB 11/28/24 Verified 04:00 Triglycerides LAB 11/28/24 Verified 04:00 Clinimix Per Pharmacy [facility] 11/27/24 In Process 22:00 Date of Service: Nov 27, 2024 Billing Provider: SHIMA GALLEGOS MD Common Visit Codes: [id number] INP/OBS CARE(HIGH) JANI EVANS RESIDENT Nov 27, 2024 19:35 SHIMA GALLEGOS MD Nov 28, 2024 10:06
[2024-11-27] MEDS: AMINO ACID INFUSION IN D10W 1,000 ML IV SCH (22:24)
[2024-11-28] VITALS (9 sets, daily range): BP systolic 117–150; BP diastolic 69–75; PULSE 54–99; RESP 18–20; TEMP 97.5–98.4; O2SAT 93–99
[2024-11-28 06:16] LABS: Basophils # (auto) 0 10 ^3/uL (0-0.2); Basophils % (auto) 0.2 % (0.0-2.0); Eosinophils # (auto) 0.1 10 ^3/uL (0-0.8); Eosinophils % (auto) 1.4 % (0.0-7.0); Hematocrit 34.6 % (41.0-53.0); Hemoglobin 11.8 g/dL (13.5-17.5); Lymphocytes # (auto) 0.9 10 ^3/uL (0.4-5.4); Mean Corpuscular Hemoglobin 29.6 pg (28.0-32.0); Mean Corpuscular Hgb Conc. 34.1 g/dL (32.0-36.0); Monocytes # (auto) 0.3 10 ^3/uL (0-1.3); Monocytes % (auto) 3.3 % (0.0-12.0); Neutrophils # (auto) 6.3 10 ^3/uL (1.6-8.6); Neutrophils % (auto) 83.1 % (37.0-80.0); Nucleated Red Blood Cells % 0.1 %; Platelet Count (auto) 398 10^3/uL (140-450); Red Blood Cells 3.97 10^6/uL (4.5-5.90); Red Cell Distribution Width 14.1 % (11.8-14.3); White Blood Cell 7.6 10^3/uL (4.4-10.8)
[2024-11-28 06:36] LABS: Albumin 3.3 g/dL (3.2-4.8); Alkaline Phosphatase 78 U/L (46-116); Anion Gap 8 (5-15); Aspartate Aminotransferase 18 U/L (13-40); BUN/Creatinine Ratio 10.9 (10.0-20.0); Bilirubin, Total 0.3 mg/dL (0.2-1.0); Carbon Dioxide 22 mmol/L (20-31); Chloride 104 mmol/L (98-107); Magnesium 1.7 mg/dL (1.6-2.6); Phosphorus 3.1 mg/dL (2.4-5.1); Total Protein 5.7 g/dL (5.7-8.2); Triglycerides 83 mg/dL (< 150)
[2024-11-28 06:51] LABS: Alanine Aminotransferase < 9 U/L (7-40); Blood Urea Nitrogen 7 mg/dL (9-23); Calcium 8.6 mg/dL (8.7-10.4); Glucose 228 mg/dL (74-106); Potassium 3.3 mmol/L (3.5-5.1); Sodium 134 mmol/L (136-145)
[2024-11-28] MEDS: POTASSIUM CHLORIDE 40 MEQ, LIDOCAINE 1% (LOCAL ANESTH.) 4 ML in SODIUM CHL 0.9% 250 ML IV ONE (07:15)
--- NOTE | 2024-11-28 15:13 | DVHPNRES ---
Progress Note Date Seen: Nov 28, 2024 Resident Creating Document: JANI EVANS RESIDENT Medical Necessity Reason Pt with a Central, PICC or Fol: No Medical Necessity Reason POD #4 Exploratory laparotomy with resection of necrotic and perforated colostomy with colostomy revision Subjective Review of Systems This is a 51 year old male with a past medical history of colon cancer s/p section in 2015 and colostomy bag, diabetes mellitus, hypertension. He presented to [facility] ED with complaint of acute abdominal pain. Patient said that he has been having the pain for the past 2 weeks that is generalized and associated with loss of appetite, but without nausea or vomiting. Patient also mentioned that he skin around the colostomy is red and the colostomy bag has some amount of blood in it. Patient denied chest pain, headache, dizziness, diaphoresis, shortness of breath, nausea, vomiting, fever, chill. Vitals are temperature 99.1, pulse 111, RR:16 and Blood pressure 128/71. Laboratory data showed WBC 11.3, platelets 358, sodium 127, potassium 3.1, BUN 11, creatinine 1.17, GFR 72, glucose 644, lipase 32. Abdomen/pelvis CT revealing solid nodules measuring 9.5 mm is seen in the left lower lobe, and enhancing lesion measuring 10 mm seen in the right lobe of liver suggestive of hemangioma or materials; colostomy is noted in the left lower quadrant with dilated bowel loops seen in the colostomy measuring a proximally 6.3 cm, appears to be loaded with feces; mild fat stranding is noted in the adjacent subcutaneous fat with extraluminal air foci questionable for perforation. Patient started IV antibiotic regimen Donald, PN 11/25/2024: Patient is seen and examined today at the bedside. He is status post surgery. He has NG tube placed draining abdominal contents. He is on pain medication on board. Be 0. Labs today showed WBC of 9.3, chloride 107 carbon dioxide 17 his, glucose 389. Patient currently patient is currently on ceftriaxone and metronidazole and also morphine 4 mg Q 4 H p.r.n. PN 11/27/2024: Patient seen and examined. He was lying in bed with NG tube. Still NPO. He has no complaints. Labs value showed wbc: 8.7, K: 3.2, m.5. yoni tinajero and patient is working with PT. PN 11/28/2024: Patient seen and examined. He was lying in bed with NG tube. Still in pain. Incision site is clean. but old stoma site still drains some serosanguineous fluid. He is on morphine 4mg q3hrs prn. Labs shows Wbc 7.6, K: 3.3, mg 1.7. He is on clinimix and PT is working with him. Will continue to monitor him closely. Give adequate pain medication and continue to try to get him out of bed. Objective vital signs Vital Sign Date Time Temp Pulse Resp B/P (MAP) Pulse Ox O2 Delivery O2 Flow Rate FiO2 11/28/24 12:32 81 19 150/70 11/28/24 11:53 97.5 93 97.5 11/28/24 08:00 Room Air* 0 21 Total Intake and Output 11/27/24 11/27/24 11/28/24 15:00 23:00 07:00 Intake Total 100 ml 100 ml 1100 ml Output Total 1320 ml 850 ml Balance 100 ml -1220 ml 250 ml medications Current Medications Medications Dose Ordered Sig/Angle Route Start Time Stop Time Status Last Admin Dose Admin Pantoprazole Sodium 40 mg DAILY IV 11/24/24 10:00 11/28/24 08:55 40 MG Metronidazole 100 ml @ 100 mls/hr Q8HR IV 11/24/24 14:00 11/28/24 14:28 100 MLS/HR Ceftriaxone Sodium 50 ml @ 100 mls/hr DAILY@09 IV 11/24/24 09:00 11/28/24 08:56 100 MLS/HR Ondansetron HCl 4 mg Q4HP PRN IV 11/24/24 04:15 Docusate Sodium 100 mg BIDPRN PRN PO 11/24/24 04:15 Acetaminophen 650 mg Q6HP PRN PO 11/24/24 04:15 Nitroglycerin 0.4 mg Q5MINP PRN SL 11/24/24 04:30 Morphine Sulfate 2 mg Q30M PRN IV 11/24/24 04:30 Phenol/Menthol 1 spr Q2HP PRN MT 11/25/24 13:30 Morphine Sulfate 4 mg Q3HP PRN IV 11/26/24 11:15 11/28/24 12:32 4 MG Potassium Chloride/Sodium Chloride 1,000 ml @ 100 mls/hr Q10H IV 11/26/24 13:00 11/28/24 05:23 100 MLS/HR Enoxaparin Sodium 40 mg DAILY SC 11/27/24 10:00 11/28/24 08:56 40 MG Amino Acids 0 ml @ 0 mls/hr PER PHARMACY IV 11/27/24 12:15 Diagnostic Test (Pha) 1 strip Q6HR 11/27/24 18:00 11/28/24 11:25 1 STRIP Insulin Human Regular FOLLOW SLIDING SCALE Q6HR SC 11/27/24 18:00 11/28/24 11:25 2 UNITS Dextrose 50 ml UD IV 11/27/24 12:45 Amino Acids/ Electrolytes/ Dextrose 1,000 ml @ 41 mls/hr DAILY@2200 IV 11/27/24 22:00 11/27/24 22:24 41 MLS/HR Examination General Appearance: Alert, Oriented X3, Cooperative, abdominal pain with mild distress, NG tube placed, very minimal gastric juice drainage today HEENT: Atraumatic, PERRLA, EOMI, Mucous membrane moist/pink Respiratory: Clear to auscultation, Normal air movement Cardiovascular: Regular rate, Normal S1, Normal S2, No murmurs, no chest wall tenderness Abdominal: Status post surgery. jeanne noted, drains seen. old stoma site still drains, pain is passing gas, [place] dc Extremities: No clubbing, No cyanosis, No edema, Normal pulses, No tenderness/swelling Skin: No rashes, No breakdown, No significant lesion Neuro: Normal gait, Normal speech, Strength at 5/5 X4 ext, Normal tone, Sensation intact, Cranial nerves 3-12 NL, Reflexes 2+ Psych/Mental Status: Mental status NL, Mood NL laboratory and microbiology Laboratory Tests 11/28/24 05:50 Test 11/28/24 05:50 Range/Units Serum Glucose 228 H 74-106 mg/dL Microbiology Date/Time Source Procedure Growth Status 11/24/24 17:20 Anus Gram Stain - Final Complete 11/24/24 17:20 Anaerobic Culture - Final Prevotella loescheii Bacteroides theitaiotaomicron Complete 11/24/24 17:20 Aerobic Culture - Final Escherichia coli Klebsiella pneumoniae Enterococcus faecalis Complete 11/24/24 03:40 Blood Blood Culture - Preliminary NO GROWTH AFTER 72 HOURS OF INCUBATION. Resulted Problem List/Assessment/Plan Problem List/Assessment/Plan Assessment Sepsis due to colonic perforation/abdominal wall cellulitis; present on Admission Colonic perforation within the abdominal wall of the colostomy site likely secondary to necrotic colon --> s/p Exploratory laparotomy with resection of necrotic and perforated colostomy with colostomy revision Abdominal wall cellulitis. hypokalemia hyponatremia Leukocytosis History of colon cancer status post resection Possible metastasis to the lungs and liver, by CT report Diabetes mellitus Hypertension. Mild anemia plan Antibiotics: Metronidazole and ceftriaxone NPO, IV fluid Replace electrolytes as necessary Daily CBC and CMP Surgical team following GI following Adequate pain medication; Morphine 4 mg q3hrs prn climinix per pharmacy To follow up with Dr. Zavaleta about the new findings in lung and liver Code status: Full Goal of care discussed for more than 25 minutes Case and plan discussed and reviewed with Dr. gallegos Plan discussed with: Patient My Orders My Orders Orders - JANI EVANS Procedure Category Date Status Time Comprehensive LAB 11/29/24 Verified Metabolic Panel 04:00 Magnesium LAB 11/29/24 Verified 04:00 Phosphorus LAB 11/29/24 Verified 04:00 Clinimix Per Pharmacy [facility] 11/28/24 In Process 22:00 Dietary Evaluation Review Comments: 1. Recommend TPN per pharmacy to meet 75% of pt's needs for protein and kcal. 2. If EN/GI accessible, Glucerna 1.2 @50ml/hr will provide 72 gPro 1440kcal supporting pt's needs at 80% pro and 80% of Kcal. 3. If EN/GI accessible, PO feeding meedically feasible, may offer a CCHO-60 diet for DM control. Expected Outcomes/Goals: improved healing and improved nutrition status, gradual weight loss. Date of Service: Nov 28, 2024 Billing Provider: SHIMA GALLEGOS MD Common Visit Codes: [id number] INP/OBS CARE(HIGH) JANI EVANS Nov 28, 2024 15:12 SHIMA GALLEGOS MD Nov 29, 2024 09:56
[2024-11-29] VITALS (8 sets, daily range): BP systolic 123–142; BP diastolic 64–77; PULSE 77–94; RESP 18–20; TEMP 97.9–98.4; O2SAT 94–98
[2024-11-29 07:27] LABS: Albumin 3.2 g/dL (3.2-4.8); Alkaline Phosphatase 69 U/L (46-116); Anion Gap 8 (5-15); Aspartate Aminotransferase 16 U/L (13-40); BUN/Creatinine Ratio 7.7 (10.0-20.0); Carbon Dioxide 21 mmol/L (20-31); Chloride 106 mmol/L (98-107)
[2024-11-29 07:28] LABS: Phosphorus 2.7 mg/dL (2.4-5.1)
[2024-11-29 07:32] LABS: Alanine Aminotransferase < 9 U/L (7-40); Bilirubin, Total 0.3 mg/dL (0.2-1.0); Blood Urea Nitrogen 5 mg/dL (9-23); Calcium 8.5 mg/dL (8.7-10.4); Glucose 221 mg/dL (74-106); Magnesium 1.6 mg/dL (1.6-2.6); Potassium 3.4 mmol/L (3.5-5.1); Sodium 135 mmol/L (136-145); Total Protein 5.5 g/dL (5.7-8.2)
[2024-11-29] MEDS: HYDROmorphone HCL 2 MG/ML VL/or syr ONE (07:35)
[2024-11-29] MEDS: cefTRIAXone 1GM/50ML D5W 50 ML IV SCH (09:53)
--- NOTE | 2024-11-29 12:54 | DVHPN2 ---
Progress Note Date Seen: Nov 29, 2024 Medical Necessity Reason Pt with a Central, PICC or Fol: No Objective vital signs Vital Sign Date Time Temp Pulse Resp B/P (MAP) Pulse Ox O2 Delivery O2 Flow Rate FiO2 11/29/24 12:35 98.2 85 20 132/74 (93) 94 98.2 11/29/24 07:30 Room Air* 0 21 Total Intake and Output 11/28/24 11/28/24 11/29/24 15:00 23:00 07:00 Intake Total 50 ml 0 ml Output Total 1520 ml 650 ml Balance 50 ml -1520 ml -650 ml medications Current Medications Medications Dose Ordered Sig/Angle Route Start Time Stop Time Status Last Admin Dose Admin Pantoprazole Sodium 40 mg DAILY IV 11/24/24 10:00 11/29/24 09:53 40 MG Metronidazole 100 ml @ 100 mls/hr Q8HR IV 11/24/24 14:00 11/29/24 05:47 100 MLS/HR Ondansetron HCl 4 mg Q4HP PRN IV 11/24/24 04:15 Docusate Sodium 100 mg BIDPRN PRN PO 11/24/24 04:15 Acetaminophen 650 mg Q6HP PRN PO 11/24/24 04:15 Nitroglycerin 0.4 mg Q5MINP PRN SL 11/24/24 04:30 Morphine Sulfate 2 mg Q30M PRN IV 11/24/24 04:30 Phenol/Menthol 1 spr Q2HP PRN MT 11/25/24 13:30 Morphine Sulfate 4 mg Q3HP PRN IV 11/26/24 11:15 11/29/24 09:48 4 MG Potassium Chloride/Sodium Chloride 1,000 ml @ 100 mls/hr Q10H IV 11/26/24 13:00 11/29/24 05:46 100 MLS/HR Enoxaparin Sodium 40 mg DAILY SC 11/27/24 10:00 11/29/24 09:55 40 MG Amino Acids 0 ml @ 0 mls/hr PER PHARMACY IV 11/27/24 12:15 Diagnostic Test (Pha) 1 strip Q6HR 11/27/24 18:00 11/29/24 12:17 1 STRIP Insulin Human Regular FOLLOW SLIDING SCALE Q6HR SC 11/27/24 18:00 11/29/24 12:31 4 UNITS Dextrose 50 ml UD IV 11/27/24 12:45 Amino Acids/ Electrolytes/ Dextrose 1,000 ml @ 41 mls/hr DAILY@2200 IV 11/27/24 22:00 11/28/24 21:01 41 MLS/HR Ceftriaxone Sodium 50 ml @ 100 mls/hr DAILY@09 IV 11/29/24 09:00 11/29/24 09:53 100 MLS/HR laboratory and microbiology Laboratory Tests 11/29/24 06:21 11/28/24 05:50 Test 11/29/24 06:21 Range/Units Serum Glucose 221 H 74-106 mg/dL Problem List/Assessment/Plan Problem List/Assessment/Plan 11/29/24 covering for,: patient had a colostomy done at [facility] in the past, came to this facility c/o abdominal pain and was found to have a necrotic colostomy with sub facsial perforation. resected the previous colostomy and established a new one, which is viable and functioning (gas in the appliance). wound clean and well approximated, will dc NGT Plan discussed with: Patient Dietary Evaluation Review Comments: 1. Recommend TPN per pharmacy to meet 75% of pt's needs for protein and kcal. 2. If EN/GI accessible, Glucerna 1.2 @50ml/hr will provide 72 gPro 1440kcal supporting pt's needs at 80% pro and 80% of Kcal. 3. If EN/GI accessible, PO feeding meedically feasible, may offer a CCHO-60 diet for DM control. Expected Outcomes/Goals: improved healing and improved nutrition status, gradual weight loss. MICHELE JOAY MD Nov 29, 2024 12:54
[2024-11-29] MEDS ORDERED: POTASSIUM CHL 20MEQ/100ML 100 ML IV ONE (13:00)
[2024-11-29] MEDS: MAGNESIUM SULFATE 1GM/100ML 100 ML IV ONE (14:44)
[2024-11-29] MEDS ORDERED: TPN PER PHARMACY 0 ML IV SCH (17:45)
--- NOTE | 2024-11-29 18:36 | DVHPNRES ---
Progress Note Date Seen: Nov 29, 2024 Resident Creating Document: JANI EVANS RESIDENT Medical Necessity Reason Pt with a Central, PICC or Fol: No Medical Necessity Reason POD #5 Subjective Review of Systems This is a 51 year old male with a past medical history of colon cancer s/p section in 2015 and colostomy bag, diabetes mellitus, hypertension. He presented to [facility] ED with complaint of acute abdominal pain. Patient said that he has been having the pain for the past 2 weeks that is generalized and associated with loss of appetite, but without nausea or vomiting. Patient also mentioned that he skin around the colostomy is red and the colostomy bag has some amount of blood in it. Patient denied chest pain, headache, dizziness, diaphoresis, shortness of breath, nausea, vomiting, fever, chill. Vitals are temperature 99.1, pulse 111, RR:16 and Blood pressure 128/71. Laboratory data showed WBC 11.3, platelets 358, sodium 127, potassium 3.1, BUN 11, creatinine 1.17, GFR 72, glucose 644, lipase 32. Abdomen/pelvis CT revealing solid nodules measuring 9.5 mm is seen in the left lower lobe, and enhancing lesion measuring 10 mm seen in the right lobe of liver suggestive of hemangioma or materials; colostomy is noted in the left lower quadrant with dilated bowel loops seen in the colostomy measuring a proximally 6.3 cm, appears to be loaded with feces; mild fat stranding is noted in the adjacent subcutaneous fat with extraluminal air foci questionable for perforation. Patient started IV antibiotic regimen Donald, PN 11/25/2024: Patient is seen and examined today at the bedside. He is status post surgery. He has NG tube placed draining abdominal contents. He is on pain medication on board. Be 0. Labs today showed WBC of 9.3, chloride 107 carbon dioxide 17 his, glucose 389. Patient currently patient is currently on ceftriaxone and metronidazole and also morphine 4 mg Q 4 H p.r.n. PN 11/27/2024: Patient seen and examined. He was lying in bed with NG tube. Still NPO. He has no complaints. Labs value showed wbc: 8.7, K: 3.2, m.5. [place] dc and patient is working with PT. PN 11/28/2024: Patient seen and examined. He was lying in bed with NG tube. Still in pain. Incision site is clean. but old stoma site still drains some serosanguineous fluid. He is on morphine 4mg q3hrs prn. Labs shows Wbc 7.6, K: 3.3, mg 1.7. He is on clinimix and PT is working with him. Will continue to monitor him closely. Give adequate pain medication and continue to try to get him out of bed. PN 11/29/2024: Patient seen and examine. He is mild-moderate pain. NGT in place. Wound care nurse took swap from the old stoma as it was draining pus. Patient was seen by the surgery team and recommended TPN. I called the order into the pharmacy. Patient will start tomorrow. Objective vital signs Vital Sign Date Time Temp Pulse Resp B/P (MAP) Pulse Ox O2 Delivery O2 Flow Rate FiO2 11/29/24 16:53 98.4 87 20 142/77 (98) 94 98.4 11/29/24 07:30 Room Air* 0 21 Total Intake and Output 11/28/24 11/28/24 11/29/24 15:00 23:00 07:00 Intake Total 50 ml 0 ml Output Total 1520 ml 650 ml Balance 50 ml -1520 ml -650 ml medications Current Medications Medications Dose Ordered Sig/Angle Route Start Time Stop Time Status Last Admin Dose Admin Pantoprazole Sodium 40 mg DAILY IV 11/24/24 10:00 11/29/24 09:53 40 MG Metronidazole 100 ml @ 100 mls/hr Q8HR IV 11/24/24 14:00 11/29/24 16:15 100 MLS/HR Ondansetron HCl 4 mg Q4HP PRN IV 11/24/24 04:15 Docusate Sodium 100 mg BIDPRN PRN PO 11/24/24 04:15 Acetaminophen 650 mg Q6HP PRN PO 11/24/24 04:15 Nitroglycerin 0.4 mg Q5MINP PRN SL 11/24/24 04:30 Morphine Sulfate 2 mg Q30M PRN IV 11/24/24 04:30 Phenol/Menthol 1 spr Q2HP PRN MT 11/25/24 13:30 Morphine Sulfate 4 mg Q3HP PRN IV 11/26/24 11:15 11/29/24 14:46 4 MG Potassium Chloride/Sodium Chloride 1,000 ml @ 100 mls/hr Q10H IV 11/26/24 13:00 11/29/24 05:46 100 MLS/HR Enoxaparin Sodium 40 mg DAILY SC 11/27/24 10:00 11/29/24 09:55 40 MG Amino Acids 0 ml @ 0 mls/hr PER PHARMACY IV 11/27/24 12:15 Diagnostic Test (Pha) 1 strip Q6HR 11/27/24 18:00 11/29/24 12:17 1 STRIP Insulin Human Regular FOLLOW SLIDING SCALE Q6HR SC 11/27/24 18:00 11/29/24 12:31 4 UNITS Dextrose 50 ml UD IV 11/27/24 12:45 Amino Acids/ Electrolytes/ Dextrose 1,000 ml @ 41 mls/hr DAILY@2200 IV 11/27/24 22:00 11/28/24 21:01 41 MLS/HR Ceftriaxone Sodium 50 ml @ 100 mls/hr DAILY@09 IV 11/29/24 09:00 11/29/24 09:53 100 MLS/HR Examination General Appearance: Alert, Oriented X3, Cooperative, abdominal pain with mild distress, NG tube placed, very minimal gastric juice drainage today HEENT: Atraumatic, PERRLA, EOMI, Mucous membrane moist/pink Respiratory: Clear to auscultation, Normal air movement Cardiovascular: Regular rate, Normal S1, Normal S2, No murmurs, no chest wall tenderness Abdominal: Status post surgery. jeanne noted, drains seen. old stoma site still drains, pain is passing gas, [place] dc; NG Tube dc Extremities: No clubbing, No cyanosis, No edema, Normal pulses, No tenderness/swelling Skin: No rashes, No breakdown, No significant lesion Neuro: Normal gait, Normal speech, Strength at 5/5 X4 ext, Normal tone, Sensation intact, Cranial nerves 3-12 NL, Reflexes 2+ Psych/Mental Status: Mental status NL, Mood NL laboratory and microbiology Laboratory Tests 11/29/24 06:21 11/28/24 05:50 Test 11/29/24 06:21 Range/Units Serum Glucose 221 H 74-106 mg/dL Microbiology Date/Time Source Procedure Growth Status 11/24/24 17:20 Anus Gram Stain - Final Complete 11/24/24 17:20 Anaerobic Culture - Final Prevotella loescheii Bacteroides theitaiotaomicron Complete 11/24/24 17:20 Aerobic Culture - Final Escherichia coli Klebsiella pneumoniae Enterococcus faecalis Complete 11/24/24 03:40 Blood Blood Culture - Final NO GROWTH AFTER 5 DAYS OF INCUBATION. Complete Problem List/Assessment/Plan Problem List/Assessment/Plan Assessment Sepsis due to colonic perforation/abdominal wall cellulitis; present on Admission Colonic perforation within the abdominal wall of the colostomy site likely secondary to necrotic colon --> s/p Exploratory laparotomy with resection of necrotic and perforated colostomy with colostomy revision Abdominal wall cellulitis. hypokalemia Hyponatremia Leukocytosis History of colon cancer status post resection Possible metastasis to the lungs and liver, by CT report Diabetes mellitus Hypertension. Mild anemia obesity, BMI 32.3 plan Antibiotics: Metronidazole and ceftriaxone NPO, IV fluid Replace electrolytes as necessary Daily CBC and CMP Surgical team following GI following Adequate pain medication; Morphine 4 mg q3hrs prn TPN per pharmacy tomorrow To follow up with Dr. Zavaleta about the new findings in lung and liver Code status: Full Goal of care discussed for more than 25 minutes Case and plan discussed and reviewed with Dr. gallegos Plan discussed with: Patient My Orders My Orders Orders - JANI EVANS RESIDENT Procedure Category Date Status Time Clinimix Per Pharmacy SHANI 11/29/24 In Process 22:00 Comprehensive LAB 11/30/24 Verified Metabolic Panel 04:00 Phosphorus LAB 11/30/24 Verified 04:00 Magnesium LAB 11/30/24 Verified 04:00 Dietary Evaluation Review Comments: 1. Recommend TPN per pharmacy to meet 75% of pt's needs for protein and kcal. 2. If EN/GI accessible, Glucerna 1.2 @50ml/hr will provide 72 gPro 1440kcal supporting pt's needs at 80% pro and 80% of Kcal. 3. If EN/GI accessible, PO feeding meedically feasible, may offer a CCHO-60 diet for DM control. Expected Outcomes/Goals: improved healing and improved nutrition status, gradual weight loss. Date of Service: Nov 29, 2024 Billing Provider: SHIMA GALLEGOS MD Common Visit Codes: [id number] INP/OBS CARE(HIGH) JANI EVANS Nov 29, 2024 18:36 SHIMA GALLEGOS MD Nov 30, 2024 12:00
[2024-11-30] VITALS (8 sets, daily range): BP systolic 108–136; BP diastolic 64–71; PULSE 59–97; RESP 16–20; TEMP 97.6–98.6; O2SAT 94–100
[2024-11-30 08:03] LABS: Basophils # (auto) 0 10 ^3/uL (0-0.2); Basophils % (auto) 0.2 % (0.0-2.0); Eosinophils # (auto) 0.1 10 ^3/uL (0-0.8); Eosinophils % (auto) 2.3 % (0.0-7.0); Hematocrit 34.5 % (41.0-53.0); Hemoglobin 11.7 g/dL (13.5-17.5); Lymphocytes # (auto) 0.9 10 ^3/uL (0.4-5.4); Lymphocytes % (auto) 15.5 % (10.0-50.0); Mean Corpuscular Hemoglobin 29.3 pg (28.0-32.0); Mean Corpuscular Volume 86.1 fL (80.0-100.0); Monocytes # (auto) 0.4 10 ^3/uL (0-1.3); Neutrophils # (auto) 4.5 10 ^3/uL (1.6-8.6); Nucleated Red Blood Cells % 0.1 %; Platelet Count (auto) 437 10^3/uL (140-450); Red Blood Cells 4.01 10^6/uL (4.5-5.90); Red Cell Distribution Width 14.3 % (11.8-14.3)
[2024-11-30 08:22] LABS: Albumin 3.4 g/dL (3.2-4.8); Alkaline Phosphatase 71 U/L (46-116); Anion Gap 8 (5-15); Aspartate Aminotransferase 26 U/L (13-40); Calcium 8.7 mg/dL (8.7-10.4); Carbon Dioxide 20 mmol/L (20-31); Chloride 106 mmol/L (98-107); Magnesium 1.8 mg/dL (1.6-2.6); Potassium 3.5 mmol/L (3.5-5.1)
[2024-11-30 08:23] LABS: Alanine Aminotransferase 9 U/L (7-40); BUN/Creatinine Ratio 8.3 (10.0-20.0); Blood Urea Nitrogen < 5 mg/dL (9-23); Glucose 229 mg/dL (74-106); Phosphorus 2.6 mg/dL (2.4-5.1); Sodium 134 mmol/L (136-145)
[2024-11-30 08:24] LABS: Bilirubin, Total 0.3 mg/dL (0.2-1.0)
[2024-11-30 08:25] LABS: Total Protein 5.7 g/dL (5.7-8.2)
--- NOTE | 2024-11-30 12:42 | DVHPN2 ---
Progress Note Date Seen: Nov 30, 2024 Medical Necessity Reason Pt with a Central, PICC or Fol: No Objective vital signs Vital Sign Date Time Temp Pulse Resp B/P (MAP) Pulse Ox O2 Delivery O2 Flow Rate FiO2 11/30/24 12:24 98.6 63 20 108/64 (79) 96 98.6 11/30/24 08:00 Room Air* 0 21 Total Intake and Output 11/29/24 11/29/24 11/30/24 15:00 23:00 07:00 Intake Total 50 ml 1841 ml 1328 ml Output Total 1700 ml 1120 ml Balance 50 ml 141 ml 208 ml medications Current Medications Medications Dose Ordered Sig/Angle Route Start Time Stop Time Status Last Admin Dose Admin Pantoprazole Sodium 40 mg DAILY IV 11/24/24 10:00 11/30/24 07:54 40 MG Metronidazole 100 ml @ 100 mls/hr Q8HR IV 11/24/24 14:00 11/30/24 05:48 100 MLS/HR Ondansetron HCl 4 mg Q4HP PRN IV 11/24/24 04:15 Docusate Sodium 100 mg BIDPRN PRN PO 11/24/24 04:15 Acetaminophen 650 mg Q6HP PRN PO 11/24/24 04:15 Nitroglycerin 0.4 mg Q5MINP PRN SL 11/24/24 04:30 Morphine Sulfate 2 mg Q30M PRN IV 11/24/24 04:30 Phenol/Menthol 1 spr Q2HP PRN MT 11/25/24 13:30 Morphine Sulfate 4 mg Q3HP PRN IV 11/26/24 11:15 11/30/24 05:49 4 MG Potassium Chloride/Sodium Chloride 1,000 ml @ 100 mls/hr Q10H IV 11/26/24 13:00 11/29/24 18:34 100 MLS/HR Enoxaparin Sodium 40 mg DAILY SC 11/27/24 10:00 11/30/24 07:55 40 MG Amino Acids 0 ml @ 0 mls/hr PER PHARMACY IV 11/27/24 12:15 11/30/24 13:00 Diagnostic Test (Pha) 1 strip Q6HR 11/27/24 18:00 11/30/24 12:19 1 STRIP Insulin Human Regular FOLLOW SLIDING SCALE Q6HR SC 11/27/24 18:00 11/30/24 12:03 2 UNITS Dextrose 50 ml UD IV 11/27/24 12:45 Amino Acids/ Electrolytes/ Dextrose 1,000 ml @ 41 mls/hr DAILY@2200 IV 11/27/24 22:00 11/30/24 21:59 11/29/24 22:08 41 MLS/HR Ceftriaxone Sodium 50 ml @ 100 mls/hr DAILY@09 IV 11/29/24 09:00 11/30/24 07:54 100 MLS/HR Amino Acids 0 ml @ 0 mls/hr PER PHARMACY IV 11/29/24 17:45 Bisacodyl 5 mg DAILYP PRN PO 11/30/24 09:30 Fat Emulsion Intravenous 50 ml/ Sodium Acetate 20 meq/Potassium Phosphate 22 meq/ Magnesium Sulfate 8 meq/ Multivitamins 10 ml/Chromium/ Copper/Manganese/ Zinc 1 ml/Insulin Human Regular 6 units/Amino Acids/ Dextrose/Purified Water 1,028.06 ml @ 43 mls/hr [id number] IV 11/30/24 22:00 12/01/24 21:59 laboratory and microbiology Laboratory Tests 11/30/24 05:48 Test 11/30/24 05:48 Range/Units Serum Glucose 229 H 74-106 mg/dL Problem List/Assessment/Plan Problem List/Assessment/Plan 11/29/24 covering for,: patient had a colostomy done at [facility] in the past, came to this facility c/o abdominal pain and was found to have a necrotic colostomy with sub facsial perforation. resected the previous colostomy and established a new one, which is viable and functioning (gas in the appliance). wound clean and well approximated, will dc NGT 11/30/24 i REMOVED THE PATIENT'S NGT THE ORDER TO REMOVE IT FROM YESTERDAY WAS NOT FOLLOWED, ABDOMEN NONDISTENDED, NONTENDER, DRAINAGE SEROSANGUINEOUS, STOMA VIABLE, WILL ALLOW CLEAR LIQUIDS PO. WOUND CLEAN AND WELL APPROXIMATED Plan discussed with: Patient Dietary Evaluation Review Comments: 1. Recommend TPN per pharmacy to meet 75% of pt's needs for protein and kcal. 2. If EN/GI accessible, Glucerna 1.2 @50ml/hr will provide 72 gPro 1440kcal supporting pt's needs at 80% pro and 80% of Kcal. 3. If EN/GI accessible, PO feeding meedically feasible, may offer a CCHO-60 diet for DM control. Expected Outcomes/Goals: improved healing and improved nutrition status, gradual weight loss. MICHELE JOYA MD Nov 30, 2024 12:42
[2024-11-30] MEDS: BISACODYL 5 MG EC TAB PO PRN (17:10)
[2024-11-30] MEDS ORDERED: DEXTROSE (50%) 50ML SYRG IV PRN (17:15)
[2024-11-30] MEDS: InsuLIN REG 1unit/0.01ml Soln (100units/ml) SC SCH ×2 (17:26→21:21)
[2024-11-30] MEDS: ACCU-CHEK COMFORT CURVE STRIP VI SCH (21:20)
[2024-11-30] MEDS ORDERED: PPN PER PHARMACY IV NR (22:00)
--- NOTE | 2024-11-30 22:06 | DVHPNRES ---
Progress Note Date Seen: Nov 30, 2024 Resident Creating Document: JANI EVANS RESIDENT Medical Necessity Reason Pt with a Central, PICC or Fol: No Medical Necessity Reason POD#6 s/p RESPIRATORY LAPAROTOMY Subjective Review of Systems This is a 51 year old male with a past medical history of colon cancer s/p section in 2015 and colostomy bag, diabetes mellitus, hypertension. He presented to [facility] ED with complaint of acute abdominal pain. Patient said that he has been having the pain for the past 2 weeks that is generalized and associated with loss of appetite, but without nausea or vomiting. Patient also mentioned that he skin around the colostomy is red and the colostomy bag has some amount of blood in it. Patient denied chest pain, headache, dizziness, diaphoresis, shortness of breath, nausea, vomiting, fever, chill. Vitals are temperature 99.1, pulse 111, RR:16 and Blood pressure 128/71. Laboratory data showed WBC 11.3, platelets 358, sodium 127, potassium 3.1, BUN 11, creatinine 1.17, GFR 72, glucose 644, lipase 32. Abdomen/pelvis CT revealing solid nodules measuring 9.5 mm is seen in the left lower lobe, and enhancing lesion measuring 10 mm seen in the right lobe of liver suggestive of hemangioma or materials; colostomy is noted in the left lower quadrant with dilated bowel loops seen in the colostomy measuring a proximally 6.3 cm, appears to be loaded with feces; mild fat stranding is noted in the adjacent subcutaneous fat with extraluminal air foci questionable for perforation. Patient started IV antibiotic regimen Donald, PN 11/25/2024: Patient is seen and examined today at the bedside. He is status post surgery. He has NG tube placed draining abdominal contents. He is on pain medication on board. Be 0. Labs today showed WBC of 9.3, chloride 107 carbon dioxide 17 his, glucose 389. Patient currently patient is currently on ceftriaxone and metronidazole and also morphine 4 mg Q 4 H p.r.n. PN 11/27/2024: Patient seen and examined. He was lying in bed with NG tube. Still NPO. He has no complaints. Labs value showed wbc: 8.7, K: 3.2, m.5. [place] dc and patient is working with PT. PN 11/28/2024: Patient seen and examined. He was lying in bed with NG tube. Still in pain. Incision site is clean. but old stoma site still drains some serosanguineous fluid. He is on morphine 4mg q3hrs prn. Labs shows Wbc 7.6, K: 3.3, mg 1.7. He is on clinimix and PT is working with him. Will continue to monitor him closely. Give adequate pain medication and continue to try to get him out of bed. PN 11/29/2024: Patient seen and examine. He is mild-moderate pain. NGT in place. Wound care nurse took swap from the old stoma as it was draining pus. Patient was seen by the surgery team and recommended TPN. I called the order into the pharmacy. Patient will start tomorrow. PN 11/30/2024: Patient is seen and examined today. At the time of my visit patient was walking with PT very much improved. A lot better so has a mod painful which we given pain medication. Vitals are completely within normal range temperature of 98.4 heart rate of 76 respiratory of 20 and blood pressure 136. Lab is looking great with WBC of 6.0 hemoglobin of 11.7; chemistry of 134 and blood sugar of to 227. All other parameters are within normal limits. Patient is also followed by the surgeon who has given the go ahead for the patient to start clear liquid diet. We will continue to monitor the patient closely. Continue current medication and pain management Objective vital signs Vital Sign Date Time Temp Pulse Resp B/P (MAP) Pulse Ox O2 Delivery O2 Flow Rate FiO2 11/30/24 21:00 98.4 76 20 136/65 (88) 95 98.4 11/30/24 08:00 Room Air* 0 21 Total Intake and Output 11/29/24 11/29/24 11/30/24 15:00 23:00 07:00 Intake Total 50 ml 1841 ml 1328 ml Output Total 1700 ml 1120 ml Balance 50 ml 141 ml 208 ml medications Current Medications Medications Dose Ordered Sig/Angle Route Start Time Stop Time Status Last Admin Dose Admin Pantoprazole Sodium 40 mg DAILY IV 11/24/24 10:00 11/30/24 07:54 40 MG Metronidazole 100 ml @ 100 mls/hr Q8HR IV 11/24/24 14:00 11/30/24 21:23 100 MLS/HR Ondansetron HCl 4 mg Q4HP PRN IV 11/24/24 04:15 Docusate Sodium 100 mg BIDPRN PRN PO 11/24/24 04:15 Acetaminophen 650 mg Q6HP PRN PO 11/24/24 04:15 Nitroglycerin 0.4 mg Q5MINP PRN SL 11/24/24 04:30 Morphine Sulfate 2 mg Q30M PRN IV 11/24/24 04:30 Phenol/Menthol 1 spr Q2HP PRN MT 11/25/24 13:30 Morphine Sulfate 4 mg Q3HP PRN IV 11/26/24 11:15 11/30/24 17:43 4 MG Potassium Chloride/Sodium Chloride 1,000 ml @ 100 mls/hr Q10H IV 11/26/24 13:00 11/30/24 17:11 100 MLS/HR Enoxaparin Sodium 40 mg DAILY SC 11/27/24 10:00 11/30/24 07:55 40 MG Amino Acids/ Electrolytes/ Dextrose 1,000 ml @ 41 mls/hr DAILY@2200 IV 11/27/24 22:00 11/30/24 21:59 11/29/24 22:08 41 MLS/HR Ceftriaxone Sodium 50 ml @ 100 mls/hr DAILY@09 IV 11/29/24 09:00 11/30/24 07:54 100 MLS/HR Bisacodyl 5 mg DAILYP PRN PO 11/30/24 09:30 11/30/24 17:10 5 MG Fat Emulsion Intravenous 50 ml/ Sodium Acetate 20 meq/Potassium Phosphate 22 meq/ Magnesium Sulfate 8 meq/ Multivitamins 10 ml/Chromium/ Copper/Manganese/ Zinc 1 ml/Insulin Human Regular 8 units/Amino Acids/ Dextrose/Purified Water 1,278.08 ml @ 53 mls/hr Q24H7M IV 11/30/24 22:00 12/01/24 21:59 Cancel Diagnostic Test (Pha) 1 strip ACHS 11/30/24 22:00 11/30/24 21:20 1 STRIP Insulin Human Regular HS SC 11/30/24 22:00 11/30/24 21:21 4 UNITS Insulin Human Regular AC SC 11/30/24 17:15 11/30/24 17:26 9 UNITS Dextrose 50 ml UD PRN IV 11/30/24 17:15 Examination General Appearance: Alert, Oriented X3, Cooperative, abdominal pain with mild distress, NGT removed. patient ambulatory HEENT: Atraumatic, PERRLA, EOMI, Mucous membrane moist/pink Respiratory: Clear to auscultation, Normal air movement Cardiovascular: Regular rate, Normal S1, Normal S2, No murmurs, no chest wall tenderness Abdominal: Status post surgery. jeanne noted, drains seen. old stoma site still drains, pain is passing gas, [place] dc; NG Tube dc Extremities: No clubbing, No cyanosis, No edema, Normal pulses, No tenderness/swelling Skin: No rashes, No breakdown, No significant lesion Neuro: Normal gait, Normal speech, Strength at 5/5 X4 ext, Normal tone, Sensation intact, Cranial nerves 3-12 NL, Reflexes 2+ Psych/Mental Status: Mental status NL, Mood NL laboratory and microbiology Laboratory Tests 11/30/24 05:48 Test 11/30/24 05:48 Range/Units Serum Glucose 229 H 74-106 mg/dL Microbiology Date/Time Source Procedure Growth Status 11/29/24 11:45 Abdomen Gram Stain - Final Resulted 11/29/24 11:45 Abdomen Wound Culture - Preliminary Resulted 11/24/24 17:20 Anus Gram Stain - Final Complete 11/24/24 17:20 Anaerobic Culture - Final Prevotella loescheii Bacteroides theitaiotaomicron Complete 11/24/24 17:20 Aerobic Culture - Final Escherichia coli Klebsiella pneumoniae Enterococcus faecalis Complete 11/24/24 03:40 Blood Blood Culture - Final NO GROWTH AFTER 5 DAYS OF INCUBATION. Complete Problem List/Assessment/Plan Problem List/Assessment/Plan Assessment Sepsis due to colonic perforation/abdominal wall cellulitis; present on Admission Colonic perforation within the abdominal wall of the colostomy site likely secondary to necrotic colon --> s/p Exploratory laparotomy with resection of necrotic and perforated colostomy with colostomy revision Abdominal wall cellulitis--> Improved hypokalemia Hyponatremia Leukocytosis History of colon cancer status post resection Possible metastasis to the lungs and liver, by CT report Diabetes mellitus hyperglycemia Hypertension. Mild anemia obesity, BMI 32.3 plan Antibiotics: Metronidazole and ceftriaxone Clear liquid diet Replace electrolytes as necessary Daily BMP Surgical team following Adequate pain medication; Morphine 4 mg q3hrs prn Insulin moderate sliding scale pantoprazole To follow up with Dr. Zavaleta about the new findings in lung and liver Code status: Full Goal of care discussed for more than 25 minutes Case and plan discussed and reviewed with Dr. Gallegos Plan discussed with: Patient Dietary Evaluation Review Comments: 1. Recommend TPN per pharmacy to meet 75% of pt's needs for protein and kcal. 2. If EN/GI accessible, Glucerna 1.2 @50ml/hr will provide 72 gPro 1440kcal supporting pt's needs at 80% pro and 80% of Kcal. 3. If EN/GI accessible, PO feeding meedically feasible, may offer a CCHO-60 diet for DM control. Expected Outcomes/Goals: improved healing and improved nutrition status, gradual weight loss. Date of Service: Nov 30, 2024 Billing Provider: SHIMA GALLEGOS MD Common Visit Codes: [id number] INP/OBS CARE(HIGH) JANI EVANS RESIDENT Nov 30, 2024 22:06 SHIMA GALLEGOS MD Dec 04, 2024 10:50
[2024-12-01] VITALS (9 sets, daily range): BP systolic 111–142; BP diastolic 65–79; PULSE 70–97; RESP 16–20; TEMP 97.7–98.3; O2SAT 94–99
[2024-12-01 05:43] LABS: Anion Gap 8 (5-15); Sodium 139 mmol/L (136-145)
[2024-12-01 05:49] LABS: BUN/Creatinine Ratio 13.2 (10.0-20.0); Blood Urea Nitrogen < 5 mg/dL (9-23); Calcium 7.6 mg/dL (8.7-10.4); Carbon Dioxide 18 mmol/L (20-31); Chloride 113 mmol/L (98-107); Glucose 165 mg/dL (74-106); Potassium 2.8 mmol/L (3.5-5.1)
--- NOTE | 2024-12-01 12:01 | DVHPN2 ---
Subjective Patient seems him at bedside. No complaint today. Reviewed: Care Plan, H&P, Labs, Medications, Previous Orders, Radiology, Other Changes from previous H/P or p: No Changes Objective Vitals Vital Signs Date Time Temp Pulse Resp B/P (MAP) Pulse Ox O2 Delivery O2 Flow Rate FiO2 12/01/24 09:00 98.2 77 16 137/71 (93) 96 98.2 12/01/24 08:00 Room Air* 0 21 Intake/Output Intake and Output 12/01/24 07:00 Intake Total 4473 ml Output Total 2500 ml Balance 1973 ml Intake Oral 1870 ml IV Total 2603 ml Output Urine Total 2500 ml General Appearance: Alert, Oriented X3, Cooperative, mild distress HEENT: Atraumatic Lungs: Clear to auscultation, Normal air movement Cardiovascular: Regular rate, Normal S1, Normal S2 Abdomen: Other Genitourinary: Other Neuro: Normal speech, Cranial nerves 3-12 NL Psych/Mental Status: Mental status NL, Mood NL Medications Current Medications Medications Dose Ordered Sig/Angle Route Start Time Stop Time Status Last Admin Dose Admin Pantoprazole Sodium 40 mg DAILY IV 11/24/24 10:00 12/01/24 07:49 40 MG Metronidazole 100 ml @ 100 mls/hr Q8HR IV 11/24/24 14:00 12/01/24 06:01 100 MLS/HR Ondansetron HCl 4 mg Q4HP PRN IV 11/24/24 04:15 Docusate Sodium 100 mg BIDPRN PRN PO 11/24/24 04:15 Acetaminophen 650 mg Q6HP PRN PO 11/24/24 04:15 Nitroglycerin 0.4 mg Q5MINP PRN SL 11/24/24 04:30 Morphine Sulfate 2 mg Q30M PRN IV 11/24/24 04:30 Phenol/Menthol 1 spr Q2HP PRN MT 11/25/24 13:30 Morphine Sulfate 4 mg Q3HP PRN IV 11/26/24 11:15 12/01/24 07:59 4 MG Potassium Chloride/Sodium Chloride 1,000 ml @ 100 mls/hr Q10H IV 11/26/24 13:00 12/01/24 04:00 100 MLS/HR Enoxaparin Sodium 40 mg DAILY SC 11/27/24 10:00 12/01/24 07:50 40 MG Ceftriaxone Sodium 50 ml @ 100 mls/hr DAILY@09 IV 11/29/24 09:00 12/01/24 07:50 100 MLS/HR Bisacodyl 5 mg DAILYP PRN PO 11/30/24 09:30 12/01/24 07:50 5 MG Fat Emulsion Intravenous 50 ml/ Sodium Acetate 20 meq/Potassium Phosphate 22 meq/ Magnesium Sulfate 8 meq/ Multivitamins 10 ml/Chromium/ Copper/Manganese/ Zinc 1 ml/Insulin Human Regular 8 units/Amino Acids/ Dextrose/Purified Water 1,278.08 ml @ 53 mls/hr Q24H7M IV 11/30/24 22:00 12/01/24 21:59 Cancel Diagnostic Test (Pha) 1 strip ACHS 11/30/24 22:00 12/01/24 10:36 1 STRIP Insulin Human Regular HS SC 11/30/24 22:00 11/30/24 21:21 4 UNITS Insulin Human Regular AC SC 11/30/24 17:15 12/01/24 10:36 6 UNITS Dextrose 50 ml UD PRN IV 11/30/24 17:15 Laboratory Results Laboratory Tests 11/30/24 05:48 12/01/24 05:01 Chemistry Test 12/01/24 05:01 Calcium Level 7.6 mg/dL (8.7-10.4) L Microbiology Microbiology Date/Time Source Procedure Growth Status 11/29/24 11:45 Abdomen Gram Stain - Final Resulted 11/29/24 11:45 Abdomen Wound Culture - Preliminary Resulted 11/24/24 17:20 Anus Gram Stain - Final Complete 11/24/24 17:20 Anaerobic Culture - Final Prevotella loescheii Bacteroides theitaiotaomicron Complete 11/24/24 17:20 Aerobic Culture - Final Escherichia coli Klebsiella pneumoniae Enterococcus faecalis Complete 11/24/24 03:40 Blood Blood Culture - Final NO GROWTH AFTER 5 DAYS OF INCUBATION. Complete Labs and/or images reviewed: Labs reviewed by me Assessment/Plan Assessment/Plan Sepsis due to colonic perforation/abdominal wall cellulitis; present on Admission Colonic perforation within the abdominal wall of the colostomy site likely secondary to necrotic colon --> s/p Exploratory laparotomy with resection of necrotic and perforated colostomy with colostomy revision Abdominal wall cellulitis--> Improved hypokalemia Hyponatremia Leukocytosis History of colon cancer status post resection Possible metastasis to the lungs and liver, by CT report Diabetes mellitus hyperglycemia Hypertension. Mild anemia obesity, BMI 32.3 plan Antibiotics: Metronidazole and ceftriaxone Clear liquid diet Replace electrolytes as necessary Daily BMP Surgical team following Adequate pain medication; Morphine 4 mg q3hrs prn Insulin moderate sliding scale pantoprazole To follow up with Dr. Zavaleta about the new findings in lung and liver Waiting for surgeon to cleared the patient for discharge. This medical document was created using an electronic medical record system with M[employer] direct computerized dictation system. Although this document has been carefully reviewed, there may still be some phonetic and typographical errors. These areas are purely typographical due to imperfections of the software programs, and do not reflect any compromise in the patient's medical care. Plan discussed with: Patient My Orders Orders - SHIMA GALLEGOS MD Procedure Category Date Status Time Glucose Blood PHA 11/30/24 In Process (Accu-Chek Comfort 22:00 Insulin R (Human) PHA 11/30/24 In Process (Insulin R) 22:00 Insulin R (Human) PHA 11/30/24 In Process (Insulin R) 17:15 Dextrose 50% Syringe PHA 11/30/24 In Process 17:15 Date of Service: Dec 01, 2024 Billing Provider: SHIMA GALLEGOS MD Common Visit Codes: [id number] INP/OBS CARE(HIGH) SHIMA GALLEGOS MD Dec 01, 2024 12:00
--- NOTE | 2024-12-01 12:04 | DVHPN2 ---
Progress Note Date Seen: Dec 01, 2024 Medical Necessity Reason Pt with a Central, PICC or Fol: No Objective vital signs Vital Sign Date Time Temp Pulse Resp B/P (MAP) Pulse Ox O2 Delivery O2 Flow Rate FiO2 12/01/24 09:00 98.2 77 16 137/71 (93) 96 98.2 12/01/24 08:00 Room Air* 0 21 Total Intake and Output 11/30/24 11/30/24 12/01/24 15:00 23:00 07:00 Intake Total 150 ml 3473 ml 850 ml Output Total 1600 ml 900 ml Balance 150 ml 1873 ml -50 ml medications Current Medications Medications Dose Ordered Sig/Angle Route Start Time Stop Time Status Last Admin Dose Admin Pantoprazole Sodium 40 mg DAILY IV 11/24/24 10:00 12/01/24 07:49 40 MG Metronidazole 100 ml @ 100 mls/hr Q8HR IV 11/24/24 14:00 12/01/24 06:01 100 MLS/HR Ondansetron HCl 4 mg Q4HP PRN IV 11/24/24 04:15 Docusate Sodium 100 mg BIDPRN PRN PO 11/24/24 04:15 Acetaminophen 650 mg Q6HP PRN PO 11/24/24 04:15 Nitroglycerin 0.4 mg Q5MINP PRN SL 11/24/24 04:30 Morphine Sulfate 2 mg Q30M PRN IV 11/24/24 04:30 Phenol/Menthol 1 spr Q2HP PRN MT 11/25/24 13:30 Morphine Sulfate 4 mg Q3HP PRN IV 11/26/24 11:15 12/01/24 07:59 4 MG Potassium Chloride/Sodium Chloride 1,000 ml @ 100 mls/hr Q10H IV 11/26/24 13:00 12/01/24 04:00 100 MLS/HR Enoxaparin Sodium 40 mg DAILY SC 11/27/24 10:00 12/01/24 07:50 40 MG Ceftriaxone Sodium 50 ml @ 100 mls/hr DAILY@09 IV 11/29/24 09:00 12/01/24 07:50 100 MLS/HR Bisacodyl 5 mg DAILYP PRN PO 11/30/24 09:30 12/01/24 07:50 5 MG Fat Emulsion Intravenous 50 ml/ Sodium Acetate 20 meq/Potassium Phosphate 22 meq/ Magnesium Sulfate 8 meq/ Multivitamins 10 ml/Chromium/ Copper/Manganese/ Zinc 1 ml/Insulin Human Regular 8 units/Amino Acids/ Dextrose/Purified Water 1,278.08 ml @ 53 mls/hr Q24H7M IV 11/30/24 22:00 12/01/24 21:59 Cancel Diagnostic Test (Pha) 1 strip ACHS 11/30/24 22:00 12/01/24 10:36 1 STRIP Insulin Human Regular HS SC 11/30/24 22:00 11/30/24 21:21 4 UNITS Insulin Human Regular AC SC 11/30/24 17:15 12/01/24 10:36 6 UNITS Dextrose 50 ml UD PRN IV 11/30/24 17:15 laboratory and microbiology Laboratory Tests 12/01/24 05:01 11/30/24 05:48 Test 12/01/24 05:01 Range/Units Serum Glucose 165 H 74-106 mg/dL Problem List/Assessment/Plan Problem List/Assessment/Plan 11/29/24 covering for,: patient had a colostomy done at [facility] in the past, came to this facility c/o abdominal pain and was found to have a necrotic colostomy with sub facsial perforation. resected the previous colostomy and established a new one, which is viable and functioning (gas in the appliance). wound clean and well approximated, will dc NGT 11/30/24 i REMOVED THE PATIENT'S NGT THE ORDER TO REMOVE IT FROM YESTERDAY WAS NOT FOLLOWED, ABDOMEN NON DISTENDED, NON TENDER, DRAINAGE SEROSANGUINEOUS, STOMA VIABLE, WILL ALLOW CLEAR LIQUIDS PO. WOUND CLEAN AND WELL APPROXIMATED 12/01/24 FEELS WELL, TOLERATING PO INTAKE, NO NAUSEA OR VOMITING, WOUND CLEAN AND WELL APPROXIMATED, STOMA FUNCTIONING Plan discussed with: Patient Dietary Evaluation Review Comments: 1. Recommend TPN per pharmacy to meet 75% of pt's needs for protein and kcal. 2. If EN/GI accessible, Glucerna 1.2 @50ml/hr will provide 72 gPro 1440kcal supporting pt's needs at 80% pro and 80% of Kcal. 3. If EN/GI accessible, PO feeding meedically feasible, may offer a CCHO-60 diet for DM control. Expected Outcomes/Goals: improved healing and improved nutrition status, gradual weight loss. MICHELE JOYA MD Dec 01, 2024 12:04
[2024-12-01] MEDS: POTASSIUM EFFERVESENT TAB 25 MEQ PO ONE (13:40)
[2024-12-01] MEDS: MEROPENEM 1GM IVPB 50 ML IV SCH (14:32)
[2024-12-02] VITALS (8 sets, daily range): BP systolic 109–136; BP diastolic 62–97; PULSE 80–90; RESP 15–18; TEMP 97.8–98.3; O2SAT 93–96
--- NOTE | 2024-12-02 12:26 | DVHPN2 ---
Progress Note Date Seen: Dec 02, 2024 Medical Necessity Reason Pt with a Central, PICC or Fol: No Objective vital signs Vital Sign Date Time Temp Pulse Resp B/P (MAP) Pulse Ox O2 Delivery O2 Flow Rate FiO2 12/02/24 10:10 84 18 131/67 12/02/24 09:00 98.3 93 98.3 12/01/24 20:00 Room Air* 0 21 Total Intake and Output 12/01/24 12/01/24 12/02/24 15:00 23:00 07:00 Intake Total 500 ml 750 ml Output Total 300 ml Balance 500 ml 450 ml medications Current Medications Medications Dose Ordered Sig/Angle Route Start Time Stop Time Status Last Admin Dose Admin Pantoprazole Sodium 40 mg DAILY IV 11/24/24 10:00 12/02/24 09:39 40 MG Ondansetron HCl 4 mg Q4HP PRN IV 11/24/24 04:15 Docusate Sodium 100 mg BIDPRN PRN PO 11/24/24 04:15 Acetaminophen 650 mg Q6HP PRN PO 11/24/24 04:15 Nitroglycerin 0.4 mg Q5MINP PRN SL 11/24/24 04:30 Morphine Sulfate 2 mg Q30M PRN IV 11/24/24 04:30 Phenol/Menthol 1 spr Q2HP PRN MT 11/25/24 13:30 Morphine Sulfate 4 mg Q3HP PRN IV 11/26/24 11:15 12/02/24 09:40 4 MG Potassium Chloride/Sodium Chloride 1,000 ml @ 100 mls/hr Q10H IV 11/26/24 13:00 12/02/24 01:33 100 MLS/HR Enoxaparin Sodium 40 mg DAILY SC 11/27/24 10:00 12/02/24 09:39 40 MG Bisacodyl 5 mg DAILYP PRN PO 11/30/24 09:30 12/01/24 07:50 5 MG Fat Emulsion Intravenous 50 ml/ Sodium Acetate 20 meq/Potassium Phosphate 22 meq/ Magnesium Sulfate 8 meq/ Multivitamins 10 ml/Chromium/ Copper/Manganese/ Zinc 1 ml/Insulin Human Regular 8 units/Amino Acids/ Dextrose/Purified Water 1,278.08 ml @ 53 mls/hr Q24H7M IV 11/30/24 22:00 12/01/24 21:59 Cancel Diagnostic Test (Pha) 1 strip ACHS 11/30/24 22:00 12/02/24 11:44 1 STRIP Insulin Human Regular HS SC 11/30/24 22:00 12/01/24 21:44 4 UNITS Insulin Human Regular AC SC 11/30/24 17:15 12/02/24 11:50 9 UNITS Dextrose 50 ml UD PRN IV 11/30/24 17:15 Meropenem 50 ml @ 17 mls/hr Q8HR IV 12/01/24 14:30 12/02/24 05:16 17 MLS/HR laboratory and microbiology Laboratory Tests 12/01/24 05:01 11/30/24 05:48 Test 12/01/24 05:01 Range/Units Serum Glucose 165 H 74-106 mg/dL Problem List/Assessment/Plan Problem List/Assessment/Plan 11/29/24 covering for,: patient had a colostomy done at [facility] in the past, came to this facility c/o abdominal pain and was found to have a necrotic colostomy with sub facsial perforation. resected the previous colostomy and established a new one, which is viable and functioning (gas in the appliance). wound clean and well approximated, will dc NGT 11/30/24 i REMOVED THE PATIENT'S NGT THE ORDER TO REMOVE IT FROM YESTERDAY WAS NOT FOLLOWED, ABDOMEN NON DISTENDED, NON TENDER, DRAINAGE SEROSANGUINEOUS, STOMA VIABLE, WILL ALLOW CLEAR LIQUIDS PO. WOUND CLEAN AND WELL APPROXIMATED 12/01/24 FEELS WELL, TOLERATING PO INTAKE, NO NAUSEA OR VOMITING, WOUND CLEAN AND WELL APPROXIMATED, STOMA FUNCTIONING 12/02/24 doing well, stoma functioning, abdomen non distended appropriately tender, wound clean and well approximated, probably can discharge in am tomorrow Plan discussed with: Patient Dietary Evaluation Review Comments: 1. Recommend TPN per pharmacy to meet 75% of pt's needs for protein and kcal. 2. If EN/GI accessible, Glucerna 1.2 @50ml/hr will provide 72 gPro 1440kcal supporting pt's needs at 80% pro and 80% of Kcal. 3. If EN/GI accessible, PO feeding meedically feasible, may offer a CCHO-60 diet for DM control. Expected Outcomes/Goals: improved healing and improved nutrition status, gradual weight loss. FISCHL,PETER MD Dec 02, 2024 12:26
--- NOTE | 2024-12-02 14:55 | DVHPN2 ---
Subjective Patient seems him at bedside. No complaint today. Patient ambulate. Reviewed: Care Plan, H&P, Labs, Medications, Previous Orders, Radiology, Other Changes from previous H/P or p: No Changes Objective Vitals Vital Signs Date Time Temp Pulse Resp B/P (MAP) Pulse Ox O2 Delivery O2 Flow Rate FiO2 12/02/24 13:00 97.8 89 16 131/65 (87) 94 97.8 12/02/24 08:00 Room Air* 0 21 Intake/Output Intake and Output 12/02/24 07:00 Intake Total 1250 ml Output Total 300 ml Balance 950 ml Intake Oral 500 ml IV Total 750 ml Output Urine Total 300 ml General Appearance: Alert, Oriented X3, Cooperative, mild distress HEENT: Atraumatic Lungs: Clear to auscultation, Normal air movement Cardiovascular: Regular rate, Normal S1, Normal S2 Abdomen: Other Genitourinary: Other Neuro: Normal speech, Cranial nerves 3-12 NL Psych/Mental Status: Mental status NL, Mood NL Medications Current Medications Medications Dose Ordered Sig/Angle Route Start Time Stop Time Status Last Admin Dose Admin Pantoprazole Sodium 40 mg DAILY IV 11/24/24 10:00 12/02/24 09:39 40 MG Ondansetron HCl 4 mg Q4HP PRN IV 11/24/24 04:15 Docusate Sodium 100 mg BIDPRN PRN PO 11/24/24 04:15 Acetaminophen 650 mg Q6HP PRN PO 11/24/24 04:15 Nitroglycerin 0.4 mg Q5MINP PRN SL 11/24/24 04:30 Morphine Sulfate 2 mg Q30M PRN IV 11/24/24 04:30 Phenol/Menthol 1 spr Q2HP PRN MT 11/25/24 13:30 Morphine Sulfate 4 mg Q3HP PRN IV 11/26/24 11:15 12/02/24 09:40 4 MG Potassium Chloride/Sodium Chloride 1,000 ml @ 100 mls/hr Q10H IV 11/26/24 13:00 12/02/24 01:33 100 MLS/HR Enoxaparin Sodium 40 mg DAILY SC 11/27/24 10:00 12/02/24 09:39 40 MG Bisacodyl 5 mg DAILYP PRN PO 11/30/24 09:30 12/01/24 07:50 5 MG Fat Emulsion Intravenous 50 ml/ Sodium Acetate 20 meq/Potassium Phosphate 22 meq/ Magnesium Sulfate 8 meq/ Multivitamins 10 ml/Chromium/ Copper/Manganese/ Zinc 1 ml/Insulin Human Regular 8 units/Amino Acids/ Dextrose/Purified Water 1,278.08 ml @ 53 mls/hr Q24H7M IV 11/30/24 22:00 12/01/24 21:59 Cancel Diagnostic Test (Pha) 1 strip ACHS 11/30/24 22:00 12/02/24 11:44 1 STRIP Insulin Human Regular HS SC 11/30/24 22:00 12/01/24 21:44 4 UNITS Insulin Human Regular AC SC 11/30/24 17:15 12/02/24 11:50 9 UNITS Dextrose 50 ml UD PRN IV 11/30/24 17:15 Meropenem 50 ml @ 17 mls/hr Q8HR IV 12/01/24 14:30 12/02/24 14:29 17 MLS/HR Laboratory Results Laboratory Tests 11/30/24 05:48 12/01/24 05:01 Microbiology Microbiology Date/Time Source Procedure Growth Status 11/29/24 11:45 Abdomen Gram Stain - Final Resulted 11/29/24 11:45 Wound Culture - Preliminary Escherichia coli Escherichia coli - ESBL Resulted 11/24/24 17:20 Anus Gram Stain - Final Complete 11/24/24 17:20 Anaerobic Culture - Final Prevotella loescheii Bacteroides theitaiotaomicron Complete 11/24/24 17:20 Aerobic Culture - Final Escherichia coli Klebsiella pneumoniae Enterococcus faecalis Complete 11/24/24 03:40 Blood Blood Culture - Final NO GROWTH AFTER 5 DAYS OF INCUBATION. Complete Labs and/or images reviewed: Labs reviewed by me Assessment/Plan Assessment/Plan Sepsis due to colonic perforation/abdominal wall cellulitis; present on Admission Colonic perforation within the abdominal wall of the colostomy site likely secondary to necrotic colon --> s/p Exploratory laparotomy with resection of necrotic and perforated colostomy with colostomy revision Abdominal wall cellulitis--> Improved hypokalemia Hyponatremia Leukocytosis History of colon cancer status post resection Possible metastasis to the lungs and liver, by CT report Diabetes mellitus hyperglycemia Hypertension. Mild anemia obesity, BMI 32.3 plan Antibiotics: Metronidazole and ceftriaxone Clear liquid diet Replace electrolytes as necessary Daily BMP Surgical team following Adequate pain medication; Morphine 4 mg q3hrs prn Insulin moderate sliding scale pantoprazole To follow up with Dr. Zavaleta about the new findings in lung and liver Waiting for surgeon to cleared the patient for discharge. Patient ambulate and tolerate diet. This medical document was created using an electronic medical record system with [employer] direct computerized dictation system. Although this document has been carefully reviewed, there may still be some phonetic and typographical errors. These areas are purely typographical due to imperfections of the software programs, and do not reflect any compromise in the patient's medical care. Plan discussed with: Patient Date of Service: Dec 02, 2024 Billing Provider: SHIMA GALLEGOS MD Common Visit Codes: [id number] INP/OBS CARE(HIGH) SHIMA GALLEGOS MD Dec 02, 2024 14:55
[2024-12-02] MEDS: DOCUSATE SOD 100 MG CAP PO PRN (17:36)
[2024-12-02] MEDS: ONDANSETRON HCL 4 MG/2 ML VIAL IV PRN (23:39)
[2024-12-03] VITALS (8 sets, daily range): BP systolic 117–142; BP diastolic 59–79; PULSE 67–100; RESP 16–18; TEMP 97.8–98.7; O2SAT 93–96
[2024-12-03 10:36] LABS: Basophils # (auto) 0 10 ^3/uL (0-0.2); Eosinophils # (auto) 0.1 10 ^3/uL (0-0.8); Hemoglobin 13.5 g/dL (13.5-17.5); Lymphocytes # (auto) 1.1 10 ^3/uL (0.4-5.4)
[2024-12-03 10:38] LABS: Basophils % (auto) 0.2 % (0.0-2.0); Eosinophils % (auto) 0.9 % (0.0-7.0); Hematocrit 40.9 % (41.0-53.0); Lymphocytes % (auto) 13.8 % (10.0-50.0); Mean Corpuscular Hemoglobin 28.9 pg (28.0-32.0); Mean Corpuscular Volume 87.7 fL (80.0-100.0); Monocytes # (auto) 0.6 10 ^3/uL (0-1.3); Neutrophils # (auto) 6.2 10 ^3/uL (1.6-8.6); Neutrophils % (auto) 78.1 % (37.0-80.0); Nucleated Red Blood Cells % 0.1 %; Platelet Count (auto) 487 10^3/uL (140-450); Red Blood Cells 4.66 10^6/uL (4.5-5.90); Red Cell Distribution Width 14.6 % (11.8-14.3); White Blood Cell 7.9 10^3/uL (4.4-10.8)
[2024-12-03 10:45] LABS: Chloride 104 mmol/L (98-107); Potassium 4.4 mmol/L (3.5-5.1)
[2024-12-03 10:46] LABS: Anion Gap 9 (5-15); Carbon Dioxide 21 mmol/L (20-31)
[2024-12-03 10:51] LABS: BUN/Creatinine Ratio 6.8 (10.0-20.0); Blood Urea Nitrogen < 5 mg/dL (9-23); Calcium 10.7 mg/dL (8.7-10.4); Glucose 232 mg/dL (74-106); Sodium 134 mmol/L (136-145)
--- NOTE | 2024-12-03 11:52 | DVHPN2 ---
Progress Note Date Seen: Dec 03, 2024 Medical Necessity Reason Pt with a Central, PICC or Fol: No Objective vital signs Vital Sign Date Time Temp Pulse Resp B/P (MAP) Pulse Ox O2 Delivery O2 Flow Rate FiO2 12/03/24 11:39 92 18 132/68 12/03/24 09:00 98.2 94 98.2 12/03/24 08:00 Room Air* 0 21 Total Intake and Output 12/02/24 12/02/24 12/03/24 15:00 23:00 07:00 Intake Total 850 ml 850 ml Output Total 1000 ml 1825 ml Balance -150 ml -975 ml medications Current Medications Medications Dose Ordered Sig/Angle Route Start Time Stop Time Status Last Admin Dose Admin Pantoprazole Sodium 40 mg DAILY IV 11/24/24 10:00 12/03/24 08:32 40 MG Ondansetron HCl 4 mg Q4HP PRN IV 11/24/24 04:15 12/03/24 11:38 4 MG Docusate Sodium 100 mg BIDPRN PRN PO 11/24/24 04:15 12/02/24 17:36 100 MG Acetaminophen 650 mg Q6HP PRN PO 11/24/24 04:15 Nitroglycerin 0.4 mg Q5MINP PRN SL 11/24/24 04:30 Phenol/Menthol 1 spr Q2HP PRN MT 11/25/24 13:30 Morphine Sulfate 4 mg Q3HP PRN IV 11/26/24 11:15 12/03/24 11:39 4 MG Potassium Chloride/Sodium Chloride 1,000 ml @ 100 mls/hr Q10H IV 11/26/24 13:00 12/03/24 05:00 100 MLS/HR Enoxaparin Sodium 40 mg DAILY SC 11/27/24 10:00 12/03/24 08:32 40 MG Bisacodyl 5 mg DAILYP PRN PO 11/30/24 09:30 12/01/24 07:50 5 MG Fat Emulsion Intravenous 50 ml/ Sodium Acetate 20 meq/Potassium Phosphate 22 meq/ Magnesium Sulfate 8 meq/ Multivitamins 10 ml/Chromium/ Copper/Manganese/ Zinc 1 ml/Insulin Human Regular 8 units/Amino Acids/ Dextrose/Purified Water 1,278.08 ml @ 53 mls/hr Q24H7M IV 11/30/24 22:00 12/01/24 21:59 Cancel Diagnostic Test (Pha) 1 strip ACHS 11/30/24 22:00 12/03/24 11:39 1 STRIP Insulin Human Regular HS SC 11/30/24 22:00 12/02/24 23:23 4 UNITS Insulin Human Regular AC SC 11/30/24 17:15 12/03/24 11:39 6 UNITS Dextrose 50 ml UD PRN IV 11/30/24 17:15 Meropenem 50 ml @ 17 mls/hr Q8HR IV 12/01/24 14:30 12/03/24 06:42 17 MLS/HR laboratory and microbiology Laboratory Tests 12/03/24 10:19 Test 12/03/24 10:19 Range/Units Serum Glucose 232 H 74-106 mg/dL Problem List/Assessment/Plan Problem List/Assessment/Plan 11/29/24 covering for,: patient had a colostomy done at [facility] in the past, came to this facility c/o abdominal pain and was found to have a necrotic colostomy with sub facsial perforation. resected the previous colostomy and established a new one, which is viable and functioning (gas in the appliance). wound clean and well approximated, will dc NGT 11/30/24 i REMOVED THE PATIENT'S NGT THE ORDER TO REMOVE IT FROM YESTERDAY WAS NOT FOLLOWED, ABDOMEN NON DISTENDED, NON TENDER, DRAINAGE SEROSANGUINEOUS, STOMA VIABLE, WILL ALLOW CLEAR LIQUIDS PO. WOUND CLEAN AND WELL APPROXIMATED 12/01/24 FEELS WELL, TOLERATING PO INTAKE, NO NAUSEA OR VOMITING, WOUND CLEAN AND WELL APPROXIMATED, STOMA FUNCTIONING 12/02/24 doing well, stoma functioning, abdomen non distended appropriately tender, wound clean and well approximated, probably can discharge in am tomorrow 12/03/24 feels well,wound clean,well approximated,stoma viable and functioning,cleared for discharge,with home health RN Plan discussed with: Patient Dietary Evaluation Review Comments: 1. Recommend TPN per pharmacy to meet 75% of pt's needs for protein and kcal. 2. If EN/GI accessible, Glucerna 1.2 @50ml/hr will provide 72 gPro 1440kcal supporting pt's needs at 80% pro and 80% of Kcal. 3. If EN/GI accessible, PO feeding meedically feasible, may offer a CCHO-60 diet for DM control. Expected Outcomes/Goals: improved healing and improved nutrition status, gradual weight loss. MICHELE JOYA MD Dec 03, 2024 11:52
--- NOTE | 2024-12-03 14:22 | DVHPNRES ---
Progress Note Date Seen: Dec 03, 2024 Resident Creating Document: JANI EVANS RESIDENT Medical Necessity Reason Pt with a Central, PICC or Fol: No Subjective Review of Systems This is a 51 year old male with a past medical history of colon cancer s/p section in 2015 and colostomy bag, diabetes mellitus, hypertension. He presented to [facility] ED with complaint of acute abdominal pain. Patient said that he has been having the pain for the past 2 weeks that is generalized and associated with loss of appetite, but without nausea or vomiting. Patient also mentioned that he skin around the colostomy is red and the colostomy bag has some amount of blood in it. Patient denied chest pain, headache, dizziness, diaphoresis, shortness of breath, nausea, vomiting, fever, chill. Vitals are temperature 99.1, pulse 111, RR:16 and Blood pressure 128/71. Laboratory data showed WBC 11.3, platelets 358, sodium 127, potassium 3.1, BUN 11, creatinine 1.17, GFR 72, glucose 644, lipase 32. Abdomen/pelvis CT revealing solid nodules measuring 9.5 mm is seen in the left lower lobe, and enhancing lesion measuring 10 mm seen in the right lobe of liver suggestive of hemangioma or materials; colostomy is noted in the left lower quadrant with dilated bowel loops seen in the colostomy measuring a proximally 6.3 cm, appears to be loaded with feces; mild fat stranding is noted in the adjacent subcutaneous fat with extraluminal air foci questionable for perforation. Patient started IV antibiotic regimen Donald, PN 11/25/2024: Patient is seen and examined today at the bedside. He is status post surgery. He has NG tube placed draining abdominal contents. He is on pain medication on board. Be 0. Labs today showed WBC of 9.3, chloride 107 carbon dioxide 17 his, glucose 389. Patient currently patient is currently on ceftriaxone and metronidazole and also morphine 4 mg Q 4 H p.r.n. PN 11/27/2024: Patient seen and examined. He was lying in bed with NG tube. Still NPO. He has no complaints. Labs value showed wbc: 8.7, K: 3.2, m.5. [place] dc and patient is working with PT. PN 11/28/2024: Patient seen and examined. He was lying in bed with NG tube. Still in pain. Incision site is clean. but old stoma site still drains some serosanguineous fluid. He is on morphine 4mg q3hrs prn. Labs shows Wbc 7.6, K: 3.3, mg 1.7. He is on clinimix and PT is working with him. Will continue to monitor him closely. Give adequate pain medication and continue to try to get him out of bed. PN 11/29/2024: Patient seen and examine. He is mild-moderate pain. NGT in place. Wound care nurse took swap from the old stoma as it was draining pus. Patient was seen by the surgery team and recommended TPN. I called the order into the pharmacy. Patient will start tomorrow. PN 11/30/2024: Patient is seen and examined today. At the time of my visit patient was walking with PT very much improved. A lot better so has a mod painful which we given pain medication. Vitals are completely within normal range temperature of 98.4 heart rate of 76 respiratory of 20 and blood pressure 136. Lab is looking great with WBC of 6.0 hemoglobin of 11.7; chemistry of 134 and blood sugar of to 227. All other parameters are within normal limits. Patient is also followed by the surgeon who has given the go ahead for the patient to start clear liquid diet. We will continue to monitor the patient closely. Continue current medication and pain management. PN 12/03/2024: Patient is seen and examined today in bed denied. Patient is really well has no complaints patient is walking he is eating solid food and his incision site is also does not reveal any discharges or any redness. Patient has actually been cleared by the surgeon or the surgical team to be discharged home. However we are arranging home health for the patient to continue IV antibiotics for 14 days and also form wound care. As soon as these are arranged patient will be discharged home. Objective vital signs Vital Sign Date Time Temp Pulse Resp B/P (MAP) Pulse Ox O2 Delivery O2 Flow Rate FiO2 12/03/24 12:09 94 18 128/64 12/03/24 09:00 98.2 94 98.2 12/03/24 08:00 Room Air* 0 21 Total Intake and Output 12/02/24 12/02/24 12/03/24 15:00 23:00 07:00 Intake Total 850 ml 850 ml Output Total 1000 ml 1825 ml Balance -150 ml -975 ml medications Current Medications Medications Dose Ordered Sig/Angle Route Start Time Stop Time Status Last Admin Dose Admin Pantoprazole Sodium 40 mg DAILY IV 11/24/24 10:00 12/03/24 08:32 40 MG Ondansetron HCl 4 mg Q4HP PRN IV 11/24/24 04:15 12/03/24 11:38 4 MG Docusate Sodium 100 mg BIDPRN PRN PO 11/24/24 04:15 12/02/24 17:36 100 MG Acetaminophen 650 mg Q6HP PRN PO 11/24/24 04:15 Nitroglycerin 0.4 mg Q5MINP PRN SL 11/24/24 04:30 Phenol/Menthol 1 spr Q2HP PRN MT 11/25/24 13:30 Morphine Sulfate 4 mg Q3HP PRN IV 11/26/24 11:15 12/03/24 11:39 4 MG Potassium Chloride/Sodium Chloride 1,000 ml @ 100 mls/hr Q10H IV 11/26/24 13:00 12/03/24 05:00 100 MLS/HR Enoxaparin Sodium 40 mg DAILY SC 11/27/24 10:00 12/03/24 08:32 40 MG Bisacodyl 5 mg DAILYP PRN PO 11/30/24 09:30 12/01/24 07:50 5 MG Fat Emulsion Intravenous 50 ml/ Sodium Acetate 20 meq/Potassium Phosphate 22 meq/ Magnesium Sulfate 8 meq/ Multivitamins 10 ml/Chromium/ Copper/Manganese/ Zinc 1 ml/Insulin Human Regular 8 units/Amino Acids/ Dextrose/Purified Water 1,278.08 ml @ 53 mls/hr Q24H7M IV 11/30/24 22:00 12/01/24 21:59 Cancel Diagnostic Test (Pha) 1 strip ACHS 11/30/24 22:00 12/03/24 11:39 1 STRIP Insulin Human Regular HS SC 11/30/24 22:00 12/02/24 23:23 4 UNITS Insulin Human Regular AC SC 11/30/24 17:15 12/03/24 11:39 6 UNITS Dextrose 50 ml UD PRN IV 11/30/24 17:15 Meropenem 50 ml @ 17 mls/hr Q8HR IV 12/01/24 14:30 12/03/24 06:42 17 MLS/HR Examination General Appearance: Alert, Oriented X3, Cooperative, abdominal pain with mild distress, patient ambulatory HEENT: Atraumatic, PERRLA, EOMI, Mucous membrane moist/pink Respiratory: Clear to auscultation, Normal air movement Cardiovascular: Regular rate, Normal S1, Normal S2, No murmurs, no chest wall tenderness Abdominal: Status post surgery. jeanne noted, drains in place Extremities: No clubbing, No cyanosis, No edema, Normal pulses, No tenderness/swelling Skin: No rashes, No breakdown, No significant lesion Neuro: Normal gait, Normal speech, Strength at 5/5 X4 ext, Normal tone, Sensation intact, Cranial nerves 3-12 NL, Reflexes 2+ Psych/Mental Status: Mental status NL, Mood NL laboratory and microbiology Laboratory Tests 12/03/24 10:19 Test 12/03/24 10:19 Range/Units Serum Glucose 232 H 74-106 mg/dL Microbiology Date/Time Source Procedure Growth Status 11/29/24 11:45 Abdomen Gram Stain - Final Complete 11/29/24 11:45 Wound Culture - Final Escherichia coli - ESBL Escherichia coli#2 Klebsiella pneumoniae Enterococcus faecalis Escherichia coli Complete 11/24/24 17:20 Anus Gram Stain - Final Complete 11/24/24 17:20 Anaerobic Culture - Final Prevotella loescheii Bacteroides theitaiotaomicron Complete 11/24/24 17:20 Aerobic Culture - Final Escherichia coli Klebsiella pneumoniae Enterococcus faecalis Complete 11/24/24 03:40 Blood Blood Culture - Final NO GROWTH AFTER 5 DAYS OF INCUBATION. Complete Problem List/Assessment/Plan Problem List/Assessment/Plan Assessment Sepsis due to colonic perforation/abdominal wall cellulitis; present on Admission Colonic perforation within the abdominal wall of the colostomy site likely secondary to necrotic colon --> s/p Exploratory laparotomy with resection of necrotic and perforated colostomy with colostomy revision Abdominal wall cellulitis--> Improved hypokalemia Hyponatremia Leukocytosis History of colon cancer status post resection Possible metastasis to the lungs and liver, by CT report Diabetes mellitus hyperglycemia Hypertension. Mild anemia obesity, BMI 32.3 ESBL: positive plan Antibiotics: Meropenem Discontinued: Metronidazole and ceftriaxone Replace electrolytes as necessary Daily BMP Surgical team cleared patient for discharge Adequate pain medication; Morphine 4 mg q3hrs prn Insulin moderate sliding scale Lantus: 15units at night pantoprazole To follow up with Dr. Zavaleta about the new findings in lung and liver Discharge plan: Patient will go home with home health for wound care and IV antibioitic: Ertapenen 1mg for 14 days, Code status: Full Goal of care discussed for more than 25 minutes Case and plan discussed and reviewed with Dr. Gallegos Plan discussed with: Patient My Orders My Orders Orders - JANI EVANS RESIDENT Procedure Category Date Status Time * Day Care Attendant CONS 12/03/24 Transmitted Consult Dietary Evaluation Review Comments: 1. Recommend TPN per pharmacy to meet 75% of pt's needs for protein and kcal. 2. If EN/GI accessible, Glucerna 1.2 @50ml/hr will provide 72 gPro 1440kcal supporting pt's needs at 80% pro and 80% of Kcal. 3. If EN/GI accessible, PO feeding meedically feasible, may offer a CCHO-60 diet for DM control. Expected Outcomes/Goals: improved healing and improved nutrition status, gradual weight loss. Date of Service: Nov 02, 2024 Billing Provider: SHIMA GALLEGOS MD Common Visit Codes: [id number] INP/OBS CARE(HIGH) JANI EVANS RESIDENT Dec 03, 2024 14:22 SHIMA GALLEGOS MD Dec 04, 2024 10:51
[2024-12-03] MEDS: ERTAPENEM SOD INJ 1 GM in SODIUM CHL 0.9% 50 ML IV ONE (18:28)
[2024-12-03] MEDS: INSULIN LANTUS (GLARGINE) 1 /0.01ml (100units/ml) SC SCH (23:19)
[2024-12-04 01:00] VITALS: BP 115/66; PULSE 84; RESP 18; TEMP 98.2; O2SAT 90
[2024-12-04 05:00] VITALS: BP 117/75; PULSE 75; RESP 18; TEMP 98.3; O2SAT 94
[2024-12-04 06:53] LABS: Chloride 104 mmol/L (98-107); Potassium 4.3 mmol/L (3.5-5.1); Sodium 137 mmol/L (136-145)
[2024-12-04 06:54] LABS: Anion Gap 8 (5-15); Carbon Dioxide 25 mmol/L (20-31)
[2024-12-04 06:55] LABS: Calcium 10.2 mg/dL (8.7-10.4)
[2024-12-04 06:59] LABS: BUN/Creatinine Ratio 9.9 (10.0-20.0)
[2024-12-04 07:02] LABS: Blood Urea Nitrogen 7 mg/dL (9-23); Glucose 107 mg/dL (74-106)
[2024-12-04 08:00] VITALS: PULSE 90; RESP 18; O2SAT 94
--- NOTE | 2024-12-04 08:52 | DVHPN2 ---
Progress Note Date Seen: Dec 04, 2024 Medical Necessity Reason Pt with a Central, PICC or Fol: No Subjective Patient reports: No new complaints, Feels better Review of Systems: HEENT:Normal, CVS:Normal, RESPIRATORY:Normal, GI:Normal, :Normal, MSK:Normal, NEURO:Normal Objective vital signs Vital Sign Date Time Temp Pulse Resp B/P (MAP) Pulse Ox O2 Delivery O2 Flow Rate FiO2 12/04/24 05:00 98.3 75 18 117/75 (89) 94 98.3 12/03/24 20:00 Room Air* 0 21 Total Intake and Output 12/03/24 12/03/24 12/04/24 15:00 23:00 07:00 Intake Total 518 ml 544 ml 1050 ml Output Total 551 ml Balance 518 ml -7 ml 1050 ml medications Current Medications Medications Dose Ordered Sig/Angle Route Start Time Stop Time Status Last Admin Dose Admin Pantoprazole Sodium 40 mg DAILY IV 11/24/24 10:00 12/03/24 08:32 40 MG Ondansetron HCl 4 mg Q4HP PRN IV 11/24/24 04:15 12/03/24 11:38 4 MG Docusate Sodium 100 mg BIDPRN PRN PO 11/24/24 04:15 12/02/24 17:36 100 MG Acetaminophen 650 mg Q6HP PRN PO 11/24/24 04:15 Nitroglycerin 0.4 mg Q5MINP PRN SL 11/24/24 04:30 Phenol/Menthol 1 spr Q2HP PRN MT 11/25/24 13:30 Morphine Sulfate 4 mg Q3HP PRN IV 11/26/24 11:15 12/03/24 18:17 4 MG Potassium Chloride/Sodium Chloride 1,000 ml @ 100 mls/hr Q10H IV 11/26/24 13:00 12/04/24 01:00 100 MLS/HR Enoxaparin Sodium 40 mg DAILY SC 11/27/24 10:00 12/03/24 08:32 40 MG Bisacodyl 5 mg DAILYP PRN PO 11/30/24 09:30 12/01/24 07:50 5 MG Fat Emulsion Intravenous 50 ml/ Sodium Acetate 20 meq/Potassium Phosphate 22 meq/ Magnesium Sulfate 8 meq/ Multivitamins 10 ml/Chromium/ Copper/Manganese/ Zinc 1 ml/Insulin Human Regular 8 units/Amino Acids/ Dextrose/Purified Water 1,278.08 ml @ 53 mls/hr Q24H7M IV 11/30/24 22:00 12/01/24 21:59 Cancel Diagnostic Test (Pha) 1 strip ACHS 11/30/24 22:00 12/04/24 08:01 1 STRIP Insulin Human Regular HS SC 11/30/24 22:00 12/03/24 23:20 2 UNITS Insulin Human Regular AC SC 11/30/24 17:15 12/04/24 08:02 2 UNITS Dextrose 50 ml UD PRN IV 11/30/24 17:15 Insulin Glargine 15 units HS SC 12/03/24 22:00 12/03/24 23:19 15 UNITS Ertapenem 1 gm/ Sodium Chloride 50 ml @ 100 mls/hr DAILY IV 12/04/24 10:00 Examination: GENERAL:Normal, HEENT:Normal, NECK:Normal, LUNGS:Normal, CVS:Normal, ABDOMEN:Normal, MSK:Normal, SKIN:Normal, NEURO:Normal laboratory and microbiology Laboratory Tests 12/04/24 04:33 12/03/24 10:19 Test 12/04/24 04:33 Range/Units Serum Glucose 107 #H 74-106 mg/dL Problem List/Assessment/Plan Problem List/Assessment/Plan 12/04/24 no new complaints, wound clean dry and jeanne intact, stoma viable, abdomen soft, non distended, non tender, ok for discharge with home health RN Plan discussed with: Patient Dietary Evaluation Review Comments: 1. Recommend TPN per pharmacy to meet 75% of pt's needs for protein and kcal. 2. If EN/GI accessible, Glucerna 1.2 @50ml/hr will provide 72 gPro 1440kcal supporting pt's needs at 80% pro and 80% of Kcal. 3. If EN/GI accessible, PO feeding meedically feasible, may offer a CCHO-60 diet for DM control. Expected Outcomes/Goals: improved healing and improved nutrition status, gradual weight loss. RASHMI PONCE NP Dec 04, 2024 08:52
[2024-12-04 09:00] VITALS: BP 116/59; PULSE 93; RESP 18; TEMP 98.6; O2SAT 94
[2024-12-04] MEDS: ERTAPENEM SOD INJ 1 GM in SODIUM CHL 0.9% 50 ML IV SCH (10:18)
[2024-12-04 13:00] VITALS: BP 121/71; PULSE 87; RESP 18; TEMP 98; O2SAT 94
--- NOTE | 2024-12-04 13:26 | DVHDSRES ---
Discharge Summary Date of Admission Resident Creating Document: JANI EVANS RESIDENT Nov 24, 2024 at 04:28 Date of Discharge: Dec 04, 2024 Admitting Diagnosis Acute abdominal pain Labs/Diagnostic Data: PATIENT: KARLEE PALOMO ACCT: [id number] UNIT: [id number] : 1965 LOC: ER ROOM / BED: / AGE / SEX: 59 / M ADM STATUS: REG ER SERVICE 22 ORDERING PHYSICIAN: SAPPHIRE HUGHES MD PROCEDURE(s): CXRP - CHEST PORTABLE REASON: abdominal pain, ca hx, ostomy ORDER NUMBER(s): [id number], ACCESSION NUMBER(s): [id number] EXAM: XY CHEST PORTABLE CLINICAL HISTORY: abdominal pain, ca hx, ostomy TECHNIQUE: Single AP view of the chest WID: COMPARISON: XY CHEST PORTABLE on DOS: 05/02/23 FINDINGS: Lines and tubes: Right IJ chest port with the tip projecting over the mid SVC. Chest: The heart size and pulmonary vasculature is within normal limits. No pleural effusion, pneumothorax, or consolidation. Linear scarring or atelectasis in the medial right lung base. The osseous structures are grossly intact. IMPRESSION: No acute cardiopulmonary abnormality. ATED BY: ELIZABETH MOBLEY MD DICTATED DATE/TIME: 11/24/24 0108 PATIENT: KARLEE PALOMO ACCT: [id number] UNIT: [id number] : 1965 LOC: TELE ROOM / BED: [address] [place] [address] AGE / SEX: 59 / M ADM STATUS: ADM IN SERVICE 22 ORDERING PHYSICIAN: SAPPHIRE HUGHES MD PROCEDURE(s): ABPLIV - CT AB PEL WITH IV CON ONLY REASON: abdominal pain, ca hx, ostomy ORDER NUMBER(s): [id number], ACCESSION NUMBER(s): [id number] ADDENDUM Addendum - Date: 11/24/2024 7:45:00 AM On: 11/24/2024 4:52:00 AM Critical finding communicated verbally to Dr Nader Ortiz. Critical Finding: Examination: ABPLIV CLINICAL INDICATION: ;abdominal pain, ca hx, ostomy COMPARISON: None. CONTRAST USED: Intravenous. TECHNIQUE: A contrast CT study of the abdomen and pelvis is performed. The examination was performed with 5 mm thin slices. Multiplanar reconstructions were obtained. CT scan done according to ALARA (As Low As Reasonably Achievable). FINDINGS: Lung base: Solid nodule measuring 9.5 mm is seen in the left lower lobe. Small sliding hiatus hernia. Subsegmental atelectasis is seen in the lingula. Liver: The liver is normal in size. An enhancing lesion measuring 10 mm is seen in the right lobe of liver suggestive of hemangioma or metastasis. Subcentimeter non-enhancing cyst is seen in segment of liver. It is likely benign and requires no follow-up. The portal venous radicles are normal. There is no intrahepatic biliary radicle dilatation. Gallbladder: The gallbladder is not visualized (postoperative status). The common bile duct is not dilated. Pancreas: The pancreas is normal in size and shape. No focal lesion is seen within. The peripancreatic fa -planes are normal. Spleen: The spleen is normal in size and does not show any focal abnormality. Retroperitoneum: Both adrenal glands are normal in size and morphology. There is no significant retroperitoneal lymphadenopathy. The kidneys are normal in size with no hydronephrosis or renal calculi. Vessels: Aorta, IVC and the mesenteric vessels appear normal. Stomach and bowel: The bowel loops are unremarkable. There is no ascites. Skeletal system: Degenerative changes are seen involving the spine. Grade 1 anterolisthesis of L5 on S1 vertebra is seen with bilateral lysis. CT PELVIS: Appendix: The appendix is unremarkable in appearance. Colon: Colostomy is noted in the left lower quadrant with dilated bowel loops seen in the colostomy measuring approximately 6.3 cm. It appears to be loaded with feces. Mild fat stranding is noted in the adjacent subcutaneous fat with extraluminal air foci questionable for perforation. Bladder: The urinary bladder is unremarkable. Prostate appears normal. No abnormal fluid collection is seen. No pelvic lymphadenopathy is identified. IMPRESSION: 1. Solid nodule measuring 9.5 mm is seen in the left lower lobe. Suggest further evaluation with CT chest study or PET CT study. 2. An enhancing lesion measuring 10 mm is seen in the right lobe of liver suggestive of hemangioma or metastasis. 3. Colostomy is noted in the left lower quadrant with dilated bowel loops seen in the colostomy measuring approximately 6.3 cm. It appears to be loaded with feces. Mild fat stranding is noted in the adjacent subcutaneous fat with extraluminal air foci questionable for perforation. 4. No abdominal mass or adenopathy. 5. No ascites. 6. No free air or inflammatory changes. 7. Additional chronic and/or ancillary findings as detailed above. 8. Suggest clinical correlation and follow-up as clinically deemed necessary. Electronically Signed 11/24/2024 03:23 uJde Bonilla ATED BY: CHAD CABRERA MD DICTATED DATE/TIME: 11/24/24734 SIGNED BY: CHAD CABRERA MD SIGNED DATE/TIME: 11/24/24734 CC: Critical Finding: Examination: ABPLIV CLINICAL INDICATION: ;abdominal pain, ca hx, ostomy COMPARISON: None. CONTRAST USED: Intravenous. TECHNIQUE: A contrast CT study of the abdomen and pelvis is performed. The examination was performed with 5 mm thin slices. Multiplanar reconstructions were obtained. CT scan done according to ALARA (As Low As Reasonably Achievable). FINDINGS: Lung base: Solid nodule measuring 9.5 mm is seen in the left lower lobe. Small sliding hiatus hernia. Subsegmental atelectasis is seen in the lingula. Liver: The liver is normal in size. An enhancing lesion measuring 10 mm is seen in the right lobe of liver suggestive of hemangioma or metastasis. Subcentimeter non-enhancing cyst is seen in segment of liver. It is likely benign and requires no follow-up. The portal venous radicles are normal. There is no intrahepatic biliary radicle dilatation. Gallbladder: The gallbladder is not visualized (postoperative status). The common bile duct is not dilated. Pancreas: The pancreas is normal in size and shape. No focal lesion is seen within. The peripancreatic fa -planes are normal. Spleen: The spleen is normal in size and does not show any focal abnormality. Retroperitoneum: Both adrenal glands are normal in size and morphology. There is no significant retroperitoneal lymphadenopathy. The kidneys are normal in size with no hydronephrosis or renal calculi. Vessels: Aorta, IVC and the mesenteric vessels appear normal. Stomach and bowel: The bowel loops are unremarkable. There is no ascites. Skeletal system: Degenerative changes are seen involving the spine. Grade 1 anterolisthesis of L5 on S1 vertebra is seen with bilateral lysis. CT PELVIS: Appendix: The appendix is unremarkable in appearance. Colon: Colostomy is noted in the left lower quadrant with dilated bowel loops seen in the colostomy measuring approximately 6.3 cm. It appears to be loaded with feces. Mild fat stranding is noted in the adjacent subcutaneous fat with extraluminal air foci questionable for perforation. Bladder: The urinary bladder is unremarkable. Prostate appears normal. No abnormal fluid collection is seen. No pelvic lymphadenopathy is identified. IMPRESSION: 1. Solid nodule measuring 9.5 mm is seen in the left lower lobe. Suggest further evaluation with CT chest study or PET CT study. 2. An enhancing lesion measuring 10 mm is seen in the right lobe of liver suggestive of hemangioma or metastasis. 3. Colostomy is noted in the left lower quadrant with dilated bowel loops seen in the colostomy measuring approximately 6.3 cm. It appears to be loaded with feces. Mild fat stranding is noted in the adjacent subcutaneous fat with extraluminal air foci questionable for perforation. 4. No abdominal mass or adenopathy. 5. No ascites. 6. No free air or inflammatory changes. 7. Additional chronic and/or ancillary findings as detailed above. 8. Suggest clinical correlation and follow-up as clinically deemed necessary. Electronically Signed 11/24/2024 03:23 Jude Bonilla ATED BY: CHAD CABRERA MD DICTATED DATE/TIME: 11/24/24 0323 Laboratory Results Test 12/04/24 10:46 12/04/24 04:33 12/03/24 10:19 11/30/24 05:48 POC Glucose 242 mg/dl (70-106) Sodium Level 137 mmol/L (136-145) Potassium Level 4.3 mmol/L (3.5-5.1) Chloride Level 104 mmol/L (98-107) Carbon Dioxide Level 25 mmol/L (20-31) Anion Gap 8 (5-15) Blood Urea Nitrogen 7 mg/dL (9-23) Creatinine 0.71 mg/dL (0.700-1.30) Glomerular Filtration Rate Calc 106 mL/min (>90) BUN/Creatinine Ratio 9.9 (10.0-20.0) Serum Glucose 107 mg/dL (74-106) Calcium Level 10.2 mg/dL (8.7-10.4) White Blood Count 7.9 10^3/uL (4.4-10.8) Red Blood Count 4.66 10^6/uL (4.5-5.90) Hemoglobin 13.5 g/dL (13.5-17.5) Hematocrit 40.9 % (41.0-53.0) Mean Corpuscular Volume 87.7 fL (80.0-100.0) Mean Corpuscular Hemoglobin 28.9 pg (28.0-32.0) Mean Corpuscular Hemoglobin Concent 33.0 g/dL (32.0-36.0) Red Cell Distribution Width 14.6 % (11.8-14.3) Platelet Count 487 10^3/uL (140-450) Mean Platelet Volume 6.3 fL (6.9-10.8) Neutrophils (%) (Auto) 78.1 % (37.0-80.0) Lymphocytes (%) (Auto) 13.8 % (10.0-50.0) Monocytes (%) (Auto) 7.0 % (0.0-12.0) Eosinophils (%) (Auto) 0.9 % (0.0-7.0) Basophils (%) (Auto) 0.2 % (0.0-2.0) Neutrophils # (Auto) 6.2 10 ^3/uL (1.6-8.6) Lymphocytes # (Auto) 1.1 10 ^3/uL (0.4-5.4) Monocytes # (Auto) 0.6 10 ^3/uL (0-1.3) Eosinophils # (Auto) 0.1 10 ^3/uL (0-0.8) Basophils # (Auto) 0 10 ^3/uL (0-0.2) Nucleated Red Blood Cells 0.1 % Hemoglobin A1c 10.1 % A1C (<5.7) Phosphorus Level 2.6 mg/dL (2.4-5.1) Magnesium Level 1.8 mg/dL (1.6-2.6) Total Bilirubin 0.3 mg/dL (0.2-1.0) Aspartate Amino Transferase (AST) 26 U/L (13-40) Alanine Aminotransferase (ALT) 9 U/L (7-40) Alkaline Phosphatase 71 U/L (46-116) Total Protein 5.7 g/dL (5.7-8.2) Albumin 3.4 g/dL (3.2-4.8) Test 11/28/24 05:50 11/26/24 05:45 11/25/24 05:38 11/24/24 03:40 Triglycerides Level 83 mg/dL (< 150) Platelet Estimate Adequate Prothrombin Time 10.9 sec (9.3-11.8) Prothrombin Time INR 1.03 (0.9-1.15) Activated Partial Thromboplast Time 30.2 SEC (24.5-34.5) Lactic Acid Level 1.9 mmol/L (0.4-2.0) Test 11/23/24 23:40 Lipase 32 U/L (12-53) Other Laboratory Tests 12/04/24 04:33 12/03/24 10:19 Brief Hx & Hospital Course: Brief History and Hospital course This 51 year old male with a past medical history of colon cancer s/p section in 2015 and colostomy bag, diabetes mellitus, hypertension. He presented to [facility] ED with complaint of acute abdominal pain. Patient said that he has been having the pain for 2 weeks prior to presentation to the ED. with an associated decreased appetite, but without nausea or vomiting. Patient also mentioned that he skin around the colostomy is red and and blood in the colostomy bag. Vitals data revealed temperature 99.1, pulse 111, RR:16 and Blood pressure 128/71. Laboratory data showed WBC 11.3, platelets 358, sodium 127, potassium 3.1, BUN 11, creatinine 1.17, GFR 72, glucose 644, lipase 32. Abdomen/pelvis CT revealing solid nodules measuring 9.5 mm is seen in the left lower lobe, and enhancing lesion measuring 10 mm seen in the right lobe of liver suggestive of hemangioma or materials; colostomy is noted in the left lower quadrant with dilated bowel loops seen in the colostomy measuring a proximally 6.3 cm, appears to be loaded with feces; mild fat stranding is noted in the adjacent subcutaneous fat with extraluminal air foci questionable for perforation. Patient started IV antibiotic regimen Flagyl and surgeon consult. Hospitals course Seen by the surgeon on the same day and taken to the OR for Exploratory laparotomy with resection of necrotic and perforated colostomy with colostomy revision. Surgery went well without any complications patient remain on Metronidazole and Ceftriaxone. Patient was kept NPO for few days to allow the wound to heal. Whiles on NPO, patient received Clinimix for couple of days and transitioned to clear fluid diet. Diet was gradually advanced and prior to discharge, patient was on diabetic diet. He also had few sessions with PT. Would culture grew ESBL. Antibiotics switched to meropenem and later was changed to ertapenem 1 gm daily. Patient tolerated the antibiotics very well and overall is stable. Patient can continue antibiotics treatment at home therefore we sent him home with home health. For IV antibiotics and for wound care. Patient advised to follow up with pcp, oncologist and the surgery. Examination General Appearance: Alert, Oriented X3, Cooperative, abdominal pain with mild distress, patient ambulatory HEENT: Atraumatic, PERRLA, EOMI, Mucous membrane moist/pink Respiratory: Clear to auscultation, Normal air movement Cardiovascular: Regular rate, Normal S1, Normal S2, No murmurs, no chest wall tenderness Abdominal: Status post surgery. jeanne noted, drains in place Extremities: No clubbing, No cyanosis, No edema, Normal pulses, No tenderness/swelling Skin: No rashes, No breakdown, No significant lesion Neuro: Normal gait, Normal speech, Strength at 5/5 X4 ext, Normal tone, Sensation intact, Cranial nerves 3-12 NL, Reflexes 2+ Psych/Mental Status: Mental status NL, Mood NL Diagnoses Sepsis due to colonic perforation/abdominal wall cellulitis; present on Admission Colonic perforation within the abdominal wall of the colostomy site likely secondary to necrotic colon Abdominal wall cellulitis hypokalemia Hyponatremia Leukocytosis History of colon cancer status post resection Possible metastasis to the lungs and liver, by CT report Diabetes mellitus hyperglycemia Hypertension. Mild anemia obesity, BMI 32.3 Wound culture ESBL: positive Discharge planing Discharged home in a stable condition. Home with home health with antibiotic and wound care. IV antibioitic: Ertapenen 1mg for 14 days, Pain control Continue Lantus: 15units at night Pantoprazole Continue home medications Advised to follow up with Dr. Zavaleta about the new findings in lung and liver Follow up the Discharge clinic in a 7 days Follow up with surgery Discharge plan discussed with DR. Gallegos Consults/Reason for consult pain at the colostomy site with some bleeding. Operations or Procedures Operative Report - 2 Report Details Date: 11/24/24 Preop Diagnosis: 1. Necrotic colostomy with perforation Postop Diagnosis: 1. Same Surgeon: Jose Souza MD Water Filter Cleaner: None Anesthesiologist: Alvino Puckett CRNA Anesthesia: General Drains: 15 Azerbaijani Nicanor x 2 Consent: The surgery and its risks including but not limited to infection, bleeding requiring possible blood transfusion with the risk of hepatitis or HIV infection, possible perioperative SD or stroke were explained to the patient and his . All questions were answered to their satisfaction. He expressed verbal understanding and wished to proceed with the surgery. Complications: None Estimated Blood Loss: 100 mL Fluids: 3 L Findings: Perforation with fecal contamination in the abdominal wall at the colostomy site Name of Procedure Performed Exploratory laparotomy with resection of necrotic and perforated colostomy with colostomy revision Procedure Details Procedure Details: After induction of general anesthesia, a Gage catheter was placed. Patient's colostomy opening was then suture closed using 2-0 Vicryl sutures. His abdomen including the colostomy site was then prepped and draped in standard surgical fashion. Midline incision was made and this incision was taken through the abdominal wall down to the fascia which was opened using electrocautery. There was no obvious abscess in the intra-abdominal cavity relatively small amount of adhesions. These were all taken down and the dissection proceeded laterally to the left to the colostomy site. Once the colon involving the colostomy site was completely freed up, the colostomy was then detached from the skin. Once we got into the subcutaneous tissue, there fecal material contaminating the soft tissue in this area. An attempt was made to control this by stapling the colon and dividing the colon in the abdominal cavity from the portion of the colon involving the the abdominal wall. Even then due to the diffuse dilatation of the colon within the abdominal wall, it took some time to clear out all the feces from this area. The colon was then completely and resected from the abdominal wall and sent off the surgical field. The fascial defect was then closed using interrupted 1. Ethibond sutures. Surgical site was then well irrigated with diluted Betadine irrigation. Cuca drain was then placed into this abdominal wall defect and overlying soft tissue was reapproximated using interrupted 2-0 Vicryl sutures. The skin was left partially open. Minimal dissection was performed to free up the descending colon and was noted the patient had still somewhat of a tortuous colon and the colon involved with the colostomy site the appeared to be the sigmoid colon. A small circular incision was made in the left upper quadrant and this incision was taken through the abdominal wall down to the fascia. A cruciate incision was made at the fascia big enough to fit 3-0 my fingers easily. Descending colon stump was then easily placed through this opening without twisting of the mesentery. 2-0 Vicryl sutures were used to secure the mesocolon to the peritoneum to prevent any slippage. Abdominal cavity was then irrigated with approximately 6 L of warm Ancef irrigation. A 15 Azerbaijani Nicanor drain was placed along the left gutter and brought out through a separate stab incision in the left lower quadrant and secured to the skin using 3-0 nylon sutures. A 2nd 15 [place] Nicanor drain was placed into the pelvis and brought out through stab incision in the right lower quadrant and secured to the skin using 3-0 nylon sutures. Midline fascia was then closed using running looped 0 PDS sutures with interrupted 1. Ethibond sutures. Surgical site was well irrigated again and skin incision was then closed using jeanne. Colostomy was then matured by taking the in the staple line. There was healthy bleeding in the mucosa appeared pink and viable. I gently explored the lumen and there was no narrowing at the fascial level. The colostomy was then matured using 2-0 and 3-0 Vicryl sutures. Surgical sites were cleaned and dried and dressings were applied. Sponge, needle, instrument count at the end of the case were reported to be correct by the nursing staff. Patient tolerated procedure well and was awakened, extubated and transferred to recovery in stable condition. Specimen: Sigmoid colon at the colostomy site Condition Stable Disposition 2 Still a Patient JOSE SOUZA MD Nov 24, 2024 18:22 DICTATED BY:JOSE SOUZA MD DICTATED DATE/TIME:11/24/241821 Condition at Discharge: Good Final Diagnosis/Problems List Sepsis due to colonic perforation/abdominal wall cellulitis; present on Admission Colonic perforation within the abdominal wall of the colostomy site likely secondary to necrotic colon --> s/p Exploratory laparotomy with resection of necrotic and perforated colostomy with colostomy revision Abdominal wall cellulitis--> Improved hypokalemia Hyponatremia Leukocytosis History of colon cancer status post resection Possible metastasis to the lungs and liver, by CT report Diabetes mellitus hyperglycemia Hypertension. Mild anemia obesity, BMI 32.3 ESBL: positive Discharge Disposition: Home with Health Services Discharge Statement: "Patient was advised to return to the ER or call 911 if any headaches, dizziness, shortness of breath, chest pain, abdominal pain, bleeding, fevers, or worsening of medical condition. Patient was counseled about treatment plan, medications, possible side effects, patientverbalized understanding. All questions were answered to the best of my ability. This discharge took greater then 30 minutes in planning, reviewing documentation, counseling the patient, and discussing with other team members." ASSESSMENT ASSESSMENT Assessment 1. Same Date of Service: Dec 04, 2024 Billing Provider: SHIMA GALLEGOS MD Common Visit Codes: 13772-JCU/OBS DISCH DAY >30min JANI EVANS RESIDENT Dec 04, 2024 13:26 SHIMA GALLEGOS MD Dec 05, 2024 18:23
[2024-12-04 13:56] VITALS: BP 116/59; PULSE 93; RESP 18; TEMP 98.6; O2SAT 94
[2024-12-06] MEDS ORDERED: HYDR-4902 PO (11:45)
== END 2024-12-04 15:05 | disposition home health service (06) | DRG 853 ==
LOC: ER 23:08 → TELE 11-24 04:28 → TELE-WESTW 11-24 19:15 → TELE-CENTR 12-01 20:14
PROVIDERS: ADMIT Internal Medicine; ATTEND Internal Medicine
PROC: 0DBN0ZZ Excision of Sigmoid Colon, Open Approach (ICD-10-PCS; principal; 2024-11-24 15:20)
PROC: 05HC33Z Insertion of Infusion Device into Left Basilic Vein, Percutaneous Approach (ICD-10-PCS; 2024-11-28)
PROC: B54NZZA Ultrasonography of Left Upper Extremity Veins, Guidance (ICD-10-PCS; 2024-11-28)
DX: A41.51 Sepsis due to Escherichia coli [E. coli] (principal); K55.049 Acute infarction of large intestine, extent unspecified; K63.1 Perforation of intestine (nontraumatic); N17.0 Acute kidney failure with tubular necrosis; L03.311 Cellulitis of abdominal wall; E87.1 Hypo-osmolality and hyponatremia; K59.39 Other megacolon; E11.65 Type 2 diabetes mellitus with hyperglycemia; D64.9 Anemia, unspecified; E66.01 Morbid (severe) obesity due to excess calories; E87.6 Hypokalemia; I11.9 Hypertensive heart disease without heart failure; Z68.32 Body mass index [BMI] 32.0-32.9, adult; Z85.038 Personal history of other malignant neoplasm of large intestine; Z90.49 Acquired absence of other specified parts of digestive tract; Z93.3 Colostomy status; Z85.048 Personal history of other malignant neoplasm of rectum, rectosigmoid junction, and anus; Z79.899 Other long term (current) drug therapy
CPT/HCPCS: 36415; 71045; 74177; 80048; 80053; 82040; 82962; 83036; 83605; 83690; 83735; 84100; 84478; 85025; 85610; 85730; 86850; 86900; 86901; 87040; 87070; 87075; 87076; 87077; 87186; 87205; 97110; 97116; 97163; 97530; 99291; G0378; J0131; J0171; J0690; J1100; J1335; J1815; J1885; J2003; J2185; J2405; J2470; J2704; J3480; J3490

== ENCOUNTER 2025-04-09 10:43 | Emergency (ER) | payer OTHER, MEDICAID ==
[~2025-04-09] VITALS: Ht 165.1 cm; Wt 83.0 kg
[~2025-04-09 10:43] MED LIST changes: -ENAL1TAB43 GT; -GABA-1308 PO; +HYDR-4902 PO; +LISI2.5T47; +METF-372; -ONDA-144 PO; -PANT40TA2 PO; +TAMS1CAP25
--- NOTE | 2025-04-09 12:47 | ED.PDOC ---
Musculoskeletal HPI Comments A 59-year-old male with a past medical history of diabetes, hypertension, cancer presents to the emergency department with a chief complaint of LT knee pain onset 2 months. Patient has been experiencing LT knee pain, intermittently for the past 2 months, with swelling that has now resolved. He states he used RT leg to trip his nephew, since then has been experiencing pain. He has tried ice packs with no improvement of symptoms. For the past week, he noticed pain has worsen. No other symptoms or modifying factors present at this time. Able to bear weight on the leg Denies skin color changes around the knee Denies masses around the knee Denies popping/locking/giving out of the knee Denies fever chills night sweats nausea vomiting Denies previous surgeries to the knee nor significant injury Chief Complaint: Lower Extremity Time Seen by MD: 12:00 Primary Care Provider: LOYDA Reviewed Notes: Nurses Notes, Medications, Allergies Allergies: Coded Allergies: NO KNOWN ALLERGIES (Unverified , 01/04/14) Home Meds Active Scripts Hydrocodone-Acetaminophen (Hydrocodone Bitartrate/AC 5-325 mg) 1 Tab Tab, 1 TAB PO Q4HPRN PRN, #30 TAB Prov:SHIMA GALLEGOS MD 12/06/24 Reported Medications Metformin Hydrochloride (Metformin Hcl) 1,000 Mg Tab, 1 11/24/24 Tamsulosin HCl (Tamsulosin Hydrochloride) 0.4 Mg Cap, 2 DAILY 11/24/24 Lisinopril (Lisinopril) 2.5 Mg Tab, 1 DAILY 11/24/24 Glipizide (Glipizide) 5 Mg Tab, 5 MG PO, TAB 01/04/14 Metformin Hydrochloride (Metformin Hcl) 500 Mg Tab, 500 MG PO, TAB 01/04/14 Information Source: Patient Mode of Arrival: Ambulatory Location: Left Extremity Location: Knee Timing: Months Prehospital treatment: None Severity: Moderate Able to Move Extremity: Yes Bear Weight: Limited Pain: Moderate Mechanism: Twisting Circumstances: Altercation Onset of Symptoms: Spontaneous Symptoms: Pain DVT Risk Factors: NONE Associated signs and symptoms: Knee pain Past Medical History PAST MEDICAL HISTORY: Cancer, DM, HTN Surgical History: Cholecystectomy Family History Family History: Reviewed,noncontributory to illness Social History Smoker: Non-Smoker Alcohol: Denies ETOH Use Drugs: Denies Drug Use Lives In: Home All Other Systems: Reviewed and Negative (as per HPI) Physical Exam General Appearance: No Apparent Distress, Normal HEENT: Normal ENT Inspection, Pharynx Normal, TMs Normal Neck: Full Range of Motion, Non-Tender, Normal, Normal Inspection Respiratory: Chest Non-Tender, Lungs Clear, No Accessory Muscle Use, No Respiratory Distress, Normal Breath Sounds Cardiovascular: No Murmur, No Gallop, Regular Rate/Rhythm Breast Exam: Deferred Gastrointestinal: No Organomegaly, Non Tender, No Pulsatile Mass, Normal Bowel Sounds, Soft Genitalia: Deferred Pelvic: Deferred Rectal: Deferred Extremities: No calf tenderness, Normal capillary refill, No pedal edema Musculoskeletal : Location: Left Extremity Location: Knee (no gross abnormality to patella on insepcton, no echymosis, swelling or open wounds, subjective pain with flexion and extension of knee. No signs of crepitus, no joint instability, valgus and vargus stress test negative. anterior/psoterior drawer test negative. No erythema, STS or warmth to palpation below knee, no abnormailty compared to unaffected extremity. 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 Was a procedure done?: No Differential Diagnosis EXT Differential Diagnosis: Fracture, Sprain, Dislocation X-Ray, Labs, Meds, VS Vital Signs Date Time Temp Pulse Resp B/P (MAP) Pulse Ox O2 Delivery O2 Flow Rate FiO2 04/09/25 13:08 88 18 98 Room Air 04/09/25 13:08 98.0 88 16 137/80 (99) 98 98.0 04/09/25 11:18 72 04/09/25 11:09 98.2 85 16 133/86 (102) 97 98.2 X-Ray, Labs, Meds, VS Comment A 59-year-old male with a past medical history of diabetes, hypertension, cancer presents to the emergency department with a chief complaint of LT knee pain onset 2 months. Patient arrives alert and oriented, ABC's intact, afebrile, vital signs stable, saturating well in room air Diagnostic imaging ordered by me and results interpreted by radiology : US negative Toradol 60 mg IM given, patient tolerated well no adverse effects Prescribed NSAIDs for the management of acute knee pain. Take ibuprofen p.o. 600 mg every 8 hours with food as needed for pain Recommend light walking under the sun for 30 minutes a day Avoiding running jogging high-impact activities Stretch as tolerated Ice 3x/day for 5 minutes Wear knee brace for stability as needed, elevate leg swelling aggravated Additional MDM Review of External, Non-ED records: External records reviewed. Discussion with independent historian (EMS, family) history obtained from the patient/parents (if applicable) at bedside Chronic conditions affecting care: DM, HTN, cancer Social determinants of health affecting care: None Consideration of admission (observation or admission): I considered escalation of care to admission for this patient, however given the reassuring workup, the patient is safe for outpatient management. Time of 1ST Reevaluation: 12:30 Reevaluation 1ST: Unchanged Patient Education/Counseling: Diagnosis, Treatment, Prognosis Family Education/Counseling: No Family Present Departure 1 Departure Time of Disposition: 13:19 Impression: Primary Impression: Internal derangement of knee Qualified Codes: M23.92 - Unspecified internal derangement of left knee Disposition: 01 HOME / SELF CARE / HOMELESS Condition: Stable e-Prescriptions Meloxicam (Meloxicam) 7.5 Mg Tab 1 TAB PO DAILY for 30 Days, #30 TAB 0 Refills Prov: RADHA MIRZA NP 04/09/25 Critical Care Note Critical Care Time?: No Stability Stability form required: No Heart Score Heart Score: Heart Score Response (Comments) Value History N/A 0 EKG N/A 0 Age N/A 0 Risk Factors N/A 0 Troponin N/A 0 Total 0 I personally scribed for RADHA MIRZA NP ([email or web address]) on 04/09/25 at 12:47. Electronically submitted by Nissa Mtz ([email or web address]). RADHA MIRZA NP Apr 09, 2025 12:47
[2025-04-09 13:08] VITALS: BP 137/80; PULSE 88; RESP 18; TEMP 98; O2SAT 98
--- NOTE | 2025-04-09 13:10 | DVH ---
Technique: Real-time ultrasound imaging, with color Doppler and compression of the left common femor al vein, femoral vein, greater saphenous vein, and popliteal vein. Indication: Pain behind the knee Comparison: None Findings: There is normal compressibility and flow augmentation in all of the imaged deep veins. There are no f illing defects. Impression: 1. No evidence of DVT in the left lower extremity
[2025-04-09] MEDS ORDERED: MELO7.5T7 PO (13:20)
[2025-04-09] MEDS: KETOROLAC TROMETH 30 MG/ML 1ML VIAL IM ONE (13:34)
[2025-04-09] MEDS: HYDROcodone-ACET 5/325MG TAB PO ONE (13:34)
--- NOTE | 2025-04-10 11:08 | ECG ---
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
== END 2025-04-09 14:25 | disposition home or self-care (01) ==
LOC: ER 10:43
DX: M23.92 Unspecified internal derangement of left knee (principal); E11.9 Type 2 diabetes mellitus without complications; I10 Essential (primary) hypertension; Z79.899 Other long term (current) drug therapy; Z90.49 Acquired absence of other specified parts of digestive tract
CPT/HCPCS: 93005; 93971; 96372; 99285; J1885

== ENCOUNTER 2025-09-21 08:03 | Emergency (ER) | payer OTHER, MEDICAID ==
[~2025-09-21] VITALS: Ht 165.1 cm; Wt 99.3 kg
[~2025-09-21 08:03] MED LIST changes: +MELO7.5T7 PO
[2025-09-21 08:50] VITALS: BP 145/81; PULSE 84; RESP 18; TEMP 98.2; O2SAT 98
--- NOTE | 2025-09-21 08:53 | ED.PDOC ---
Musculoskeletal HPI Comments A 60 YEAR OLD MALE PRESENTS TO THE ED WITH COMPLAINT OF LEFT KNEE PAIN AND PAIN STATUS POST FALL. PATIENT STATES HE WAS AT WORK YESTERDAY AND HE ACCIDENTALLY SLIPPED AND FELL CAUSING HIM TO HIT HIS LEFT KNEE ON THE GROUND AND TWIST HIS RIGHT HIP. PATIENT REPORTS HE IS NOW EXPERIENCING LEFT KNEE PAIN AND RIGHT KNEE PAIN THAT IS WORSE WITH MOVEMENT. PATIENT IS ABLE TO WALK AND BEAR WEIGHT WITH A STABLE GAIT. PATIENT DENIES HEAD INJURY, NECK INJURY, LOC, FEVER, CHILLS, SHORTNESS OF BREATH, CHEST PAIN, ABDOMINAL PAIN, NAUSEA, VOMITING, HEADACHE, OR OTHER COMPLAINTS. NO OTHER SYMPTOMS OR MODIFYING FACTORS AT THIS TIME. PATIENT IS ALERT, ORIENTED X 4, AND HAS STEADY GAIT. Chief Complaint: Fall Injury Time Seen by MD: 08:13 Primary Care Provider: LOYDA Reviewed Notes: Nurses Notes, Medications, Allergies Allergies: Coded Allergies: NO KNOWN ALLERGIES (Unverified , 01/04/14) Home Meds Active Scripts Methocarbamol (Methocarbamol) 750 Mg Tab, 750 MG PO BID, #20 TAB Prov:COSTA PERDOMO 09/21/25 Ibuprofen (Ibuprofen) 800 Mg Tab, 1 TAB PO TID, #30 TAB Prov:COSTA PERDOMO 09/21/25 Meloxicam (Meloxicam) 7.5 Mg Tab, 1 TAB PO DAILY for 30 Days, #30 TAB 0 Refills Prov:RADHA MIRZA NP 04/09/25 Hydrocodone-Acetaminophen (Hydrocodone Bitartrate/AC 5-325 mg) 1 Tab Tab, 1 TAB PO Q4HPRN PRN, #30 TAB Prov:SHIMA GALLEGOS MD 12/06/24 Reported Medications Metformin Hydrochloride (Metformin Hcl) 1,000 Mg Tab, 1 11/24/24 Tamsulosin HCl (Tamsulosin Hydrochloride) 0.4 Mg Cap, 2 DAILY 11/24/24 Lisinopril (Lisinopril) 2.5 Mg Tab, 1 DAILY 11/24/24 Glipizide (Glipizide) 5 Mg Tab, 5 MG PO, TAB 01/04/14 Metformin Hydrochloride (Metformin Hcl) 500 Mg Tab, 500 MG PO, TAB 01/04/14 Information Source: Patient Mode of Arrival: Ambulatory Location: Left, Right Extremity Location: Hip (RIGHT HIP), Knee (LEFT KNEE) Timing: Days Prehospital treatment: None Severity: Moderate Able to Move Extremity: Yes Bear Weight: Fully Pain: Moderate Mechanism: Blunt Trauma, Twisting Circumstances: Fall Onset of Symptoms: After Trauma Symptoms: Pain DVT Risk Factors: NONE Last Tetanus: Unknown Associated signs and symptoms: Knee pain, Hip pain Past Medical History PAST MEDICAL HISTORY: Cancer, DM, HTN Surgical History: Cholecystectomy Family History Family History: Reviewed,noncontributory to illness Social History Smoker: Non-Smoker Alcohol: Denies ETOH Use Drugs: Denies Drug Use Lives In: Home Constitutional: denies: chills, diaphoresis, fatigue, fever, malaise, sweats, weakness, others EENTM: denies: blurred vision, double vision, ear bleeding, ear discharge, ear drainage, ear pain, ear ringing, eye pain, eye redness, hearing loss, mouth pain, mouth swelling, nasal discharge, nose bleeding, nose congestion, nose pain , photophobia, tearing, throat pain, throat swelling, voice changes, others Respiratory: denies: cough, hemoptysis, orthopnea, SOB at rest, shortness of breath, SOB with excertion, stridor, wheezing, others Cardiovascular: denies: chest pain, dizzy spells, diaphoresis, Dyspnea on exertion, edema, irregular heart beat, left arm pain, lightheadedness, palpitations, PND, syncope, others Gastrointestinal: denies: abdomen distended, abdominal pain, blood streaked bowels, constipated, diarrhea, dysphagia, difficulty swallowing, hematemesis, melena, nausea, poor appetite, poor fluid intake, rectal bleeding, rectal pain, vomiting, others Genitourinary: denies: burning, dysuria, flank pain, frequency, hematuria, incontinence, penile discharge, penile sore, pain, testicle pain, testicle swelling, urgency, others Neurological: denies: dizziness, fainting, headache, left sided numbness, left sided weakness, numbness, paresthesia, pre-existing deficit, right sided numbness, right sided weakness, seizure, speech problems, tingling, tremors, weakness, others Musculoskeletal: reports: joint pain, muscle pain, others (LEFT KNEE PAIN, RIGHT HIP PAIN); denies: back pain, gout, joint swelling, muscle stiffness, neck pain Integumetry: denies: bruises, change in color, change in hair/nails, dryness, laceration, lesions, lumps, rash, wounds, others Allergic/Immunocompromised: denies: Difficulty Healing, Frequent Infections, Hives, Itching, others Hematologic/Lymphatic: denies: anemia, blood clots, easy bleeding, easy bruising, swollen glands, others Endocrine: denies: excessive hunger, excessive sweating, excessive thirst, excessive urination, flushing, intolerance to cold, intolerance to heat, unexplained weight gain, unexplained weight loss, others Psychiatric: denies: anxiety, bipolar disorder, depression, hopeless, panic disorder, schizophrenia, sleepless, suicidal, others All Other Systems: Reviewed and Negative Physical Exam General Appearance: No Apparent Distress, Obese HEENT: Normal ENT Inspection, PERRL/EOMI, Pharynx Normal, TMs Normal Neck: Full Range of Motion, Non-Tender, Normal, Normal Inspection Respiratory: Chest Non-Tender, Lungs Clear, No Accessory Muscle Use, No Respiratory Distress, Normal Breath Sounds Cardiovascular: No Edema, No JVD, No Murmur, No Gallop, Normal Peripheral Pulses, Regular Rate/Rhythm Breast Exam: Deferred Gastrointestinal: No Organomegaly, Non Tender, No Pulsatile Mass, Normal Bowel Sounds, Soft Genitalia: Deferred Pelvic: Deferred Rectal: Deferred Extremities: Decreased range of motion (SLIGHTLY. ), No calf tenderness, Normal capillary refill, No pedal edema, Swelling (AND TENDERNESS ON LEFT KNEE, NO BONY TENDERNESS, SWELLING AND DEFORMITY. ), Tender (AND MUSCLE TIGHTNESS ON RIGHT LATERAL HIP, NO BONY TENDERNESS, SWELLING AND DEFORMITY, NORMAL GAIT. 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 Was a procedure done?: No Differential Diagnosis EXT Differential Diagnosis: Fracture, Sprain, Dislocation, Contusion, Strain, Bursitis X-Ray, Labs, Meds, VS Vital Signs Date Time Temp Pulse Resp B/P (MAP) Pulse Ox O2 Delivery O2 Flow Rate FiO2 09/21/25 08:50 98.2 84 18 145/81 (102) 98 98.2 09/21/25 08:50 84 18 98 Room Air 09/21/25 08:05 97.2 84 18 147/80 97 97.2 Current Medications Medications (Trade) Dose Ordered Sig/Angle Route Start Time Stop Time Status Last Admin Acetaminophen/ Hydrocodone Bitart (Adel 5/325MG Tab) 1 tab ONCE ONCE PO 09/21/25 09:00 09/21/25 09:01 DC 09/21/25 08:54 CLINICAL INDICATION: FALL TECHNIQUE: 3 radiographic views of the left knee were obtained. Comparison: None FINDINGS/IMPRESSION: No fractures or dislocations. No radiographic findings to suggest joint effusion. ATED BY: ERYN LANGLEY Jr., DO DICTATED DATE/TIME: 09/21/25 100 SIGNED BY: ERYN LANGLEY Jr., SIGNED DATE/TIME: 09/21/251003 CC: X-Ray, Labs, Meds, VS Comment EXTERNAL MEDICAL RECORDS REVIEWED: [NONE] INDEPENDENT HISTORIANS: [NONE] SOCIAL DETERMINANTS OF HEALTH: [NONE] LABS ORDERED: NONE REVIEWED AND INTERPRETED RESULTS: NONE IMAGING ORDERED: XR KNEE LT XR HIP RT: [INTERPRETED BY ME. NO ACUTE FINDINGS. NO FRACTURES OR DISLOCATION. PENDING RADIOLOGIST REPORT.] TREATMENTS ORDERED: NORCO 10/325 MG PO PROCEDURES PERFORMED: NONE CRITICAL CARE TIME: NONE I HAVE DISCUSSED THE PATIENT WITH THE ATTENDING PHYSICIAN DR. HUGHES AND HE AGREES WITH THE PATIENT'S PLAN OF CARE AND DISPOSITION. BASED ON HISTORY OF PRESENT ILLNESS, AND PHYSICAL EXAM, PATIENT WILL BE DISCHARGED HOME. DISCUSSED PLAN FOR DISCHARGE HOME WITH RX [IBUPROFEN 800 MG AND ROBAXIN]. MEDICATION WARNINGS GIVEN. SHARED DECISION MAKING: DISCUSSED WITH PATIENT THAT THEIR WORKUP WAS NORMAL. PATIENT INSTRUCTED TO FOLLOW UP WITH PRIMARY CARE PROVIDER IN 1-2 DAYS FOR RE- EVALUATION OF SYMPTOMS. PATIENT VERBALIZES UNDERSTANDING TO RETURN TO ED FOR NEW OR WORSENING SYMPTOMS OR IF FOLLOW UP WITH PCP CANNOT BE OBTAINED. PATIENT FEELS COMFORTABLE GOING HOME AT THIS TIME. ALL QUESTIONS ADDRESSED AT TIME OF DISCHARGE. Images Reviewed?: Images reviewed and evaluated by me Time of 1ST Reevaluation: 10:12 Reevaluation 1ST: Improved Patient Education/Counseling: Diagnosis, Treatment, Need For Follow Up Family Education/Counseling: Diagnosis, Treatment, Need For Follow Up Medical Screening: No EMC Exist At This Time Departure 1 Departure Time of Disposition: 10:12 Impression: Primary Impression: Sprain of left knee Qualified Codes: S83.92XA - Sprain of unspecified site of left knee, initial encounter Additional Impressions: Strain of muscle of right hip Qualified Codes: S76.011A - Strain of muscle, fascia and tendon of right hip, initial encounter Status post fall Disposition: HOME / SELF CARE / HOMELESS Condition: Stable Additional Instructions: FOLLOW-UP WITH PCP IN 1 TO 2 DAYS. TAKE MEDICATIONS PRESCRIBED. RETURN TO ED FOR ANY NEW OR WORSENING SYMPTOMS. e-Prescriptions Methocarbamol (Methocarbamol) 750 Mg Tab 750 MG PO BID, #20 TAB Prov: COSTA PERDOMO 09/21/25 Ibuprofen (Ibuprofen) 800 Mg Tab 1 TAB PO TID, #30 TAB Prov: COSTA PERDOMO 09/21/25 Discharged With: Self, Spouse Critical Care Note Critical Care Time?: No Stability Stability form required: No I personally scribed for COSTA PERDOMO ([email or web address]) on 09/21/25 at 08:53. Electronically submitted by Alonso Ferrera ([employer]). I personally scribed for COSTA PERDOMO ([email or web address]) on 09/21/25 at 10:05. Electronically submitted by Alonso Ferrera ([email or web address]). I personally scribed for COSTA PERDOMO ([email or web address]) on 09/21/25 at 10:08. Electronically submitted by Alonso Ferrera ([email or web address]). COSTA PERDOMO Sep 21, 2025 08:53
[2025-09-21] MEDS: HYDROcodone-ACET 5/325MG TAB PO ONE (08:54)
[2025-09-21] MEDS: HYDROcodone-ACET 10/325MG TAB PO ONE (08:54)
--- NOTE | 2025-09-21 10:06 | DVH ---
CLINICAL INDICATION: FALL TECHNIQUE: 3 radiographic views of the left knee were obtained. Comparison: None FINDINGS/IMPRESSION: No fractures or dislocations. No radiographic findings to suggest joint effusion.
--- NOTE | 2025-09-21 10:08 | DVH ---
CLINICAL INDICATION: FALL TECHNIQUE: 3 radiographic views of the pelvis and right hip were obtained. Comparison: R FOOT COMPLETE XRAY on DOS: 08/17/21, L HIP COMPLETE XRAY on DOS: 11/09/19 FINDINGS/IMPRESSION: Femur appears to be intact normal alignment . No fracture or dislocation. Right acetabulum appears normal Superior and inferior pubic ramus on the right is normal
[2025-09-21] MEDS ORDERED: METH-1182 PO (10:10)
[2025-09-21] MEDS ORDERED: IBUP-1456 PO (10:10)
== END 2025-09-21 10:12 | disposition home or self-care (01) ==
LOC: ER 08:06
DX: S83.92XA Sprain of unspecified site of left knee, initial encounter (principal); S76.011A Strain of muscle, fascia and tendon of right hip, initial encounter; I10 Essential (primary) hypertension; E11.9 Type 2 diabetes mellitus without complications; Z79.899 Other long term (current) drug therapy; Z90.49 Acquired absence of other specified parts of digestive tract; Z79.1 Long term (current) use of non-steroidal anti-inflammatories (NSAID); W01.0XXA Fall on same level from slipping, tripping and stumbling without subsequent striking against object, initial encounter; Y93.89 Activity, other specified; Y92.89 Other specified places as the place of occurrence of the external cause; Y99.0 Civilian activity done for income or pay
CPT/HCPCS: 73502; 73562